=== PATIENT | female | born 1970 | race Caucasian/White ===

== ENCOUNTER → 2017-06-17 14:38 | Outpatient (CLI) | payer MEDICAID, SELFPAY ==
--- NOTE | 2017-06-17 14:41 | MR_ITS ---
MR lumbar spine wo con, MR 3-d myelogram/MRCP HISTORY: Low back pain, bilateral back pain with worsening pain in the last year ORDERING PHYSICIAN: Oscar Angel MD PATIENT AGE: 46 years COMPARISON: None TECHNIQUE: Standard multiplanar multiecho sequences are performed without contrast. 3-D MIP and myelographic images are also rendered and reviewed FINDINGS: The spinal cord ends at the L1-L2 level. There is normal alignment with straightening of the lumbar lordosis which may be seen with patient positioning or muscle spasm. L1-L2: Unremarkable. L2-L3: Mild bulging disc. A Schmorl's node is present along the superior endplate of L3. Mild disc desiccation. L3-L4: Mild disc desiccation. L4-L5: Minimal bulging disc with mild disc desiccation. Focal increased T2 signal involves the right foraminal aspect of the disc posteriorly suggesting an annular tear. No disc herniation. L5-S1: Bulging disc with small broad-based right paracentral disc protrusion abutting the right S1 nerve root anteriorly with right lateral recess narrowing. IMPRESSION: 1. Mild multilevel lumbar spondylosis with disc desiccation and minimal bulging disc. Please see above for detailed description at each level 2. Small broad-based right paracentral disc protrusion at L5-S1 causing mild impingement upon the right S1 nerve root 3. Annular tear of the disc at L4-L5 and the right foraminal region without protrusion or herniation
== END ==
PROVIDERS: Family Provider Emergency Medicine; PCP Emergency Medicine; Visit Provider Emergency Medicine
DX: M54.5 Low back pain (principal)
CPT/HCPCS: 72148; 76376

== ENCOUNTER → 2017-07-25 09:21 | Outpatient (POV) | payer MEDICAID, SELFPAY ==
[2017-07-25 09:29] VITALS: BP 174/97; PULSE 89; RESP 18; O2SAT 96; BMI 28.0
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
== END ==
PROVIDERS: Family Provider Emergency Medicine; PCP Emergency Medicine; Visit Provider Clinical Nurse Specialist Family Health
DX: M54.9 Dorsalgia, unspecified (principal)
CPT/HCPCS: 99202

== ENCOUNTER → 2017-07-26 10:03 | Outpatient (REF) | payer MEDICAID, SELFPAY ==
[2017-07-26 14:57] LABS: Amphetamine/Metha Screen,Urine Negative ng/mL (<1000); Barbiturates Screen,Urine Negative ng/mL (<200); Benzodiazepines Screen,Urine Negative ng/mL (200); Cannabinoid Screen,Urine Negative ng/mL (<50); Cocaine Screen,Urine Negative ng/g (<300); Methadone Screen,Urine Negative ng/mL (<300); Opiate Screen,Urine Negative ng/mL (<300); Phencyclidine Screen,Urine Negative ng/mL (<25)
== END ==
LOC: LAB 10:03
PROVIDERS: Visit Provider Emergency Medicine
DX: Z79.899 Other long term (current) drug therapy (principal)
CPT/HCPCS: 80305

== ENCOUNTER → 2017-08-15 08:38 | Outpatient (CLI) | payer MEDICAID, SELFPAY ==
--- NOTE | 2017-08-15 08:43 | CT_ITS ---
CT mastoid W/O INDICATION: ITS.REASON: chronic mastoiditis ORDERING PHYSICIAN: Shane Rosado MD PATIENT AGE: 46 years COMPARISON: None TECHNIQUE: Axial images are obtained without contrast. Sagittal and coronal reformatted images are reviewed as well. All CT scans at the facility use one or more dose reduction, viz: automated exposure control; ma/kV adjustment per patient size (including targeted exams where dose is matched to indication; i.e. head); or iterative reconstruction technique. FINDINGS: There is moderate opacification of the right mastoid sinus with some minimal aeration centrally and inferiorly. There is also mild opacification of the epitympanic recess medial to the malleolus. No bony erosive changes. No evidence of scutum erosion The middle ear is not opacified.. The paranasal sinuses have an unremarkable appearance. There is severe rightward nasal septal deviation anteriorly with narrowing of the nasal canal. The orbits have an unremarkable appearance. Unremarkable TMJs. No paranasal sinus air-fluid levels or significant mucosal thickening. IMPRESSION: 1. Moderate opacification of the right mastoid sinus without bony erosive change. 2. Mild opacification of the epitympanic recess medially. No evidence of cholesteatoma. 3. Severe rightward nasal septal deviation anteriorly with narrowing of the nasal canal on the right
== END ==
PROVIDERS: Family Provider Emergency Medicine; PCP Emergency Medicine; Visit Provider Otolaryngology
DX: H70.11 Chronic mastoiditis, right ear (principal)
CPT/HCPCS: 70480; 70486

== ENCOUNTER → 2017-08-24 13:58 | Outpatient (REF) | payer MEDICAID, SELFPAY ==
[2017-08-25 18:18] LABS: Amphetamine/Metha Screen,Urine Negative ng/mL (<1000); Barbiturates Screen,Urine Negative ng/mL (<200); Benzodiazepines Screen,Urine Negative ng/mL (200); Cannabinoid Screen,Urine Negative ng/mL (<50); Cocaine Screen,Urine Negative ng/g (<300); Methadone Screen,Urine Negative ng/mL (<300); Opiate Screen,Urine Positive ng/mL (<300); Phencyclidine Screen,Urine Negative ng/mL (<25)
== END ==
LOC: LAB 13:58
PROVIDERS: Visit Provider Emergency Medicine
DX: Z79.899 Other long term (current) drug therapy (principal)
CPT/HCPCS: 80305

== ENCOUNTER → 2017-08-30 10:08 | Outpatient (CLI) | payer MEDICAID, SELFPAY ==
[2017-08-30 10:27] LABS: Basophils % 0.5 % (0.1-2.0); Eosinophils # 0.1 K/mm3 (0.0-0.4); Eosinophils % 1.1 % (0.1-12.0); Hematocrit 47.7 % (37.0-47.0); Hemoglobin 15.5 g/dL (12.2-16.2); Lymphocytes # 3.6 K/mm3 (0.7-4.5); Lymphocytes % 50.5 K/mm3 (10-50); Mean Corpuscular HGB Conc 32.6 g/dL (31.8-35.4); Mean Corpuscular Hemoglobin 31.9 pg (27.0-31.2); Mean Platelet Volume 7.2 fl (7.4-10.4); Monocytes # 0.3 K/mm3 (0.1-1.0); Monocytes % 4.8 % (1.7-9.3); Neutrophils % 43.2 % (37.0-80.0); Platelet Count 228 K/mm3 (142-424); Red Blood Count 4.87 M/mm3 (4.20-5.40); Red Cell Distribution Width 12.6 % (11.5-17.5)
[2017-08-30 10:32] LABS: MANUAL DIFFERENTIAL MANUAL DIFFERENTIAL (MANUAL DIFF)
[2017-08-30 11:44] LABS: Anion Gap 14.6 mEq/L (5-15); Blood Urea Nitrogen 9 mg/dL (7-18); Carbon Dioxide 28 mmol/L (21.0-32.0); Chloride 106 mmol/L (98-107); Creatinine,Serum 0.62 mg/dL (0.55-1.02); Estimated Glomerular Filt Rate 103 ml/min (>60); GFR (African American) 125 ML/MIN (>60); Glucose 82 mg/dL (74-106); Potassium 4.6 mmoL/L (3.5-5.1); Sodium 144 mmol/L (136-145)
[2017-08-30 13:08] LABS: Eosinophils % 1 % (0-3); Lymphocytes % 50 % (10-50); Monocytes % 4 % (2-9); Neutrophils % 45 % (42-76); Platelet Estimate Normal; Total Cells Counted 100
== END ==
PROVIDERS: Visit Provider Otolaryngology
DX: Z01.818 Encounter for other preprocedural examination (principal); J34.2 Deviated nasal septum; H66.91 Otitis media, unspecified, right ear
CPT/HCPCS: 36415; 80048; 85007; 85025; 93005

== ENCOUNTER → 2017-09-23 11:00 | Outpatient (REF) | payer MEDICAID, SELFPAY ==
[2017-09-23 14:20] LABS: Amphetamine/Metha Screen,Urine Negative ng/mL (<1000); Barbiturates Screen,Urine Negative ng/mL (<200); Benzodiazepines Screen,Urine Negative ng/mL (200); Cannabinoid Screen,Urine Negative ng/mL (<50); Cocaine Screen,Urine Negative ng/g (<300); Methadone Screen,Urine Negative ng/mL (<300); Opiate Screen,Urine Positive ng/mL (<300); Phencyclidine Screen,Urine Negative ng/mL (<25)
== END ==
LOC: LAB 11:00
PROVIDERS: Visit Provider Emergency Medicine
DX: Z79.899 Other long term (current) drug therapy (principal)
CPT/HCPCS: 80305

== ENCOUNTER → 2017-10-21 09:25 | Outpatient (CLI) | payer MEDICAID, SELFPAY ==
[2017-10-21 14:05] LABS: Amphetamine/Metha Screen,Urine Negative ng/mL (<1000); Barbiturates Screen,Urine Negative ng/mL (<200); Benzodiazepines Screen,Urine Negative ng/mL (200); Cannabinoid Screen,Urine Negative ng/mL (<50); Cocaine Screen,Urine Negative ng/g (<300); Methadone Screen,Urine Negative ng/mL (<300); Opiate Screen,Urine Positive ng/mL (<300); Phencyclidine Screen,Urine Negative ng/mL (<25)
== END ==
PROVIDERS: Visit Provider Emergency Medicine
DX: Z79.899 Other long term (current) drug therapy (principal)
CPT/HCPCS: 80305

== ENCOUNTER → 2017-11-21 10:03 | Outpatient (REF) | payer MEDICAID, SELFPAY ==
[2017-11-21 14:16] LABS: Amphetamine/Metha Screen,Urine Negative ng/mL (<1000); Barbiturates Screen,Urine Negative ng/mL (<200); Benzodiazepines Screen,Urine Negative ng/mL (<200); Cannabinoid Screen,Urine Negative ng/mL (<50); Cocaine Screen,Urine Negative ng/mL (<300); Methadone Screen,Urine Negative ng/mL (<300); Opiate Screen,Urine Negative ng/mL (<300); Phencyclidine Screen,Urine Negative ng/mL (<25)
== END ==
LOC: LAB 10:03
PROVIDERS: Visit Provider Emergency Medicine
DX: Z79.899 Other long term (current) drug therapy (principal)
CPT/HCPCS: 80305

== ENCOUNTER → 2017-12-14 09:42 | Outpatient (REF) | payer MEDICAID, SELFPAY ==
[2017-12-14 13:59] LABS: Amphetamine/Metha Screen,Urine Negative ng/mL (<1000); Barbiturates Screen,Urine Negative ng/mL (<200); Benzodiazepines Screen,Urine Negative ng/mL (<200); Cannabinoid Screen,Urine Negative ng/mL (<50); Cocaine Screen,Urine Negative ng/mL (<300); Methadone Screen,Urine Negative ng/mL (<300); Opiate Screen,Urine Negative ng/mL (<300); Phencyclidine Screen,Urine Negative ng/mL (<25)
== END ==
LOC: LAB 09:42
PROVIDERS: Visit Provider Emergency Medicine
DX: Z79.899 Other long term (current) drug therapy (principal)
CPT/HCPCS: 80305

== ENCOUNTER → 2018-01-24 09:43 | Outpatient (REF) | payer MEDICAID, SELFPAY ==
[2018-01-24 14:29] LABS: Amphetamine/Metha Screen,Urine Negative ng/mL (<1000); Barbiturates Screen,Urine Negative ng/mL (<200); Benzodiazepines Screen,Urine Negative ng/mL (<200); Cannabinoid Screen,Urine Negative ng/mL (<50); Cocaine Screen,Urine Negative ng/mL (<300); Methadone Screen,Urine Negative ng/mL (<300); Opiate Screen,Urine Negative ng/mL (<300); Phencyclidine Screen,Urine Negative ng/mL (<25)
== END ==
LOC: LAB 09:43
PROVIDERS: Visit Provider Emergency Medicine
DX: Z79.899 Other long term (current) drug therapy (principal)
CPT/HCPCS: 80305

== ENCOUNTER → 2018-02-22 10:02 | Outpatient (REF) | payer MEDICAID, SELFPAY ==
[2018-02-22 13:47] LABS: Amphetamine/Metha Screen,Urine Negative ng/mL (<1000); Barbiturates Screen,Urine Negative ng/mL (<200); Benzodiazepines Screen,Urine Negative ng/mL (<200); Cannabinoid Screen,Urine Negative ng/mL (<50); Cocaine Screen,Urine Negative ng/mL (<300); Methadone Screen,Urine Negative ng/mL (<300); Opiate Screen,Urine Negative ng/mL (<300); Phencyclidine Screen,Urine Negative ng/mL (<25)
== END ==
LOC: LAB 10:02
PROVIDERS: Visit Provider Emergency Medicine
DX: Z79.891 Long term (current) use of opiate analgesic (principal)
CPT/HCPCS: 80305

== ENCOUNTER → 2018-03-27 10:24 | Outpatient (CLI) | payer MEDICAID, SELFPAY ==
--- NOTE | 2018-03-27 10:28 | MM_ITS ---
MM Dig screening mamm BI w/CAD CAD Screening COMPARISON: None, this is baseline INDICATION: There is no personal or family history of breast cancer TECHNIQUE: Standard CC and MLO images were obtained. R2 CAD reviewed. FINDINGS: Minimal scattered fibroglandular densities are seen throughout both breast on a background of fatty breast parenchyma. The findings are bilateral and symmetrical. There is no suspicious lesion and no suspicious microcalcifications. There is a fatty replaced node right axilla. IMPRESSION: Fibrofatty parenchyma no suspicious lesion seen BI-RADS Category: 1 Negative RECOMMENDED FOLLOW-UP: 1YR - 1 YEAR FOLLOW-UP (A letter has been sent to the patient regarding results of the study.)
== END ==
PROVIDERS: PCP Emergency Medicine; Visit Provider Emergency Medicine
DX: Z12.31 Encounter for screening mammogram for malignant neoplasm of breast (principal)
CPT/HCPCS: 77067

== ENCOUNTER → 2018-03-27 13:45 | Outpatient (CLI) | payer MEDICAID, SELFPAY ==
[2018-03-27 15:21] LABS: Amphetamine/Metha Screen,Urine Negative ng/mL (<1000); Barbiturates Screen,Urine Negative ng/mL (<200); Benzodiazepines Screen,Urine Negative ng/mL (<200); Cannabinoid Screen,Urine Negative ng/mL (<50); Cocaine Screen,Urine Negative ng/mL (<300); Methadone Screen,Urine Negative ng/mL (<300); Opiate Screen,Urine Negative ng/mL (<300); Phencyclidine Screen,Urine Negative ng/mL (<25)
== END ==
PROVIDERS: PCP Emergency Medicine; Visit Provider Emergency Medicine
DX: Z79.899 Other long term (current) drug therapy (principal)
CPT/HCPCS: 80305

== ENCOUNTER → 2018-04-03 12:14 | Outpatient (POV) | payer MEDICAID, SELFPAY | PROVIDERS: Visit Provider Specialist | DX: G56.00 Carpal tunnel syndrome, unspecified upper limb (principal) | CPT/HCPCS: 95886; 95910 ==

== ENCOUNTER → 2018-04-25 13:31 | Outpatient (CLI) | payer MEDICAID, SELFPAY ==
[2018-04-25 14:20] LABS: Amphetamine/Metha Screen,Urine Negative ng/mL (<1000); Barbiturates Screen,Urine Negative ng/mL (<200); Benzodiazepines Screen,Urine Negative ng/mL (<200); Cannabinoid Screen,Urine Negative ng/mL (<50); Cocaine Screen,Urine Negative ng/mL (<300); Methadone Screen,Urine Negative ng/mL (<300); Opiate Screen,Urine Negative ng/mL (<300); Phencyclidine Screen,Urine Negative ng/mL (<25)
[2018-05-10 02:13] LABS: Codeine Negative (Cutoff=100); Hydrocodone Positive (.); Hydromorphone Negative (Cutoff=100); Morphine Negative (Cutoff=100)
[2018-05-10 06:20] LABS: Hydrocodone Confirm 142 ng/mL (Cutoff=100); Opiates Positive (.)
== END ==
PROVIDERS: Visit Provider Emergency Medicine
DX: Z79.899 Other long term (current) drug therapy (principal)
CPT/HCPCS: 80305; 80361; G0480

== ENCOUNTER → 2018-04-27 08:43 | Outpatient (CLI) | payer MEDICAID, SELFPAY ==
--- NOTE | 2018-04-27 08:49 | XR_ITS ---
XR wrist RT min 3V HISTORY right wrist pain ITS.REASON: b/l wrist pain ORDERING PHYSICIAN: Guerda De Jesus MD PATIENT AGE: 47 years Comparison: None FINDINGS: No fracture or dislocation. No lytic or blastic change. There is normal mineralization.. The joint spaces are well-preserved. No significant degenerative/arthritic changes. No erosive changes evident.. IMPRESSION: Negative wrist
--- NOTE | 2018-04-27 08:49 | XR_ITS ---
XR wrist LT min 3V HISTORY wrist pain ITS.REASON: Wrist pain ORDERING PHYSICIAN: Guerda De Jesus MD PATIENT AGE: 47 years Comparison: None FINDINGS: No fracture or dislocation. No lytic or blastic change. There is normal mineralization.. The joint spaces are well-preserved. No significant degenerative/arthritic changes. No erosive changes evident.. There are minimal osteoarthritic changes at the first metacarpal carpal joint Calcific density is present at the tip of the ulnar styloid process. This is well-circumscribed and may be related to an old fracture or ununited ossification center IMPRESSION: 1. No acute finding. 2. Minimal osteoarthritis of the first metacarpal carpal joint
== END ==
PROVIDERS: PCP Emergency Medicine; Visit Provider Orthopaedic Surgery
DX: G56.03 Carpal tunnel syndrome, bilateral upper limbs (principal)
CPT/HCPCS: 73110

== ENCOUNTER 2018-04-27 10:00 | Outpatient (RCR) | payer MEDICAID, SELFPAY | END 2018-04-27 10:01 | disposition home or self-care (01) | LOC: OT 10:00 | PROVIDERS: Visit Provider Orthopaedic Surgery | DX: G56.01 Carpal tunnel syndrome, right upper limb | CPT/HCPCS: 97763 ==

== ENCOUNTER → 2018-05-26 13:25 | Outpatient (CLI) | payer MEDICAID, SELFPAY ==
[2018-05-26 16:49] LABS: Amphetamine/Metha Screen,Urine Negative ng/mL (<1000); Barbiturates Screen,Urine Negative ng/mL (<200); Benzodiazepines Screen,Urine Negative ng/mL (<200); Cannabinoid Screen,Urine Negative ng/mL (<50); Cocaine Screen,Urine Negative ng/mL (<300); Methadone Screen,Urine Negative ng/mL (<300); Opiate Screen,Urine Negative ng/mL (<300); Phencyclidine Screen,Urine Negative ng/mL (<25)
[2018-06-03 06:24] LABS: Opiates Negative ng/mL (Cutoff=100)
== END ==
PROVIDERS: Visit Provider Emergency Medicine
DX: Z79.899 Other long term (current) drug therapy (principal)
CPT/HCPCS: 80305; 80361; G0480

== ENCOUNTER → 2018-06-07 11:09 | Outpatient (CLI) | payer MEDICAID, SELFPAY ==
[2018-06-07 12:28] LABS: Urine Pregnancy, HCG Qual. Negative (Negative)
[2018-06-07 13:12] LABS: INR 0.97 (0.9-1.1)
[2018-06-07 13:16] LABS: Anion Gap 17.8 mEq/L (5-15); Blood Urea Nitrogen 11 mg/dL (7-18); Carbon Dioxide 23 mmol/L (21.0-32.0); Chloride 102 mmol/L (98-107); Creatinine,Serum 0.68 mg/dL (0.55-1.02); Estimated Glomerular Filt Rate 92 ml/min (>60); GFR (African American) 112 ML/MIN (>60); Glucose 104 mg/dL (74-106); Potassium 3.8 mmoL/L (3.5-5.1); Sodium 139 mmol/L (136-145)
[2018-06-07 13:29] LABS: Basophils % 0.3 % (0.1-2.0); Eosinophils # 0.1 K/mm3 (0.0-0.4); Eosinophils % 1.2 % (0.1-12.0); Hematocrit 47.2 % (37.0-47.0); Hemoglobin 15.4 g/dL (12.2-16.2); Lymphocytes % 38.6 % (10-50); Mean Corpuscular HGB Conc 32.6 g/dL (31.8-35.4); Mean Platelet Volume 7.8 fl (7.4-10.4); Monocytes # 0.6 K/mm3 (0.1-1.0); Monocytes % 7.2 % (1.7-9.3); Neutrophils # 4.1 K/mm3 (1.8-7.8); Neutrophils % 52.7 % (37.0-80.0); Platelet Count 207 K/mm3 (142-424); Red Blood Count 4.82 M/mm3 (4.20-5.40); Red Cell Distribution Width 13.2 % (11.5-17.5); White Blood Count 7.9 K/mm3 (4.8-10.8)
== END ==
PROVIDERS: Visit Provider Orthopaedic Surgery
DX: Z01.818 Encounter for other preprocedural examination (principal); G56.02 Carpal tunnel syndrome, left upper limb
CPT/HCPCS: 36415; 80048; 81025; 85025; 85610

== ENCOUNTER → 2018-07-21 17:52 | Outpatient (CLI) | payer MEDICAID, SELFPAY ==
[2018-07-21 19:26] LABS: Amphetamine/Metha Screen,Urine Negative ng/mL (<1000); Barbiturates Screen,Urine Positive ng/mL (<200); Benzodiazepines Screen,Urine Negative ng/mL (<200); Cannabinoid Screen,Urine Negative ng/mL (<50); Cocaine Screen,Urine Negative ng/mL (<300); Methadone Screen,Urine Negative ng/mL (<300); Opiate Screen,Urine Negative ng/mL (<300); Phencyclidine Screen,Urine Negative ng/mL (<25)
[2018-07-31 07:59] LABS: Barbiturates Positive (.); Opiates Negative ng/mL (Cutoff=100)
== END ==
PROVIDERS: Visit Provider Emergency Medicine
DX: M54.9 Dorsalgia, unspecified (principal); Z79.891 Long term (current) use of opiate analgesic
CPT/HCPCS: 80305; 80345; 80361; G0480

== ENCOUNTER → 2018-08-01 09:32 | Outpatient (POV) | payer MEDICAID, SELFPAY ==
[2018-08-01 09:34] VITALS: BP 117/74; PULSE 98; RESP 18; O2SAT 98; BMI 29.8
--- NOTE | 2018-08-01 09:58 | P.CONS_ITS ---
[facility] Pain Management SOAP Note Subjective:: Is a pleasant 47-year-old white female who we are treating for low back pain. Patient has an abnormal MRI. She did L5-S1 epidural steroid injection at her last visit however she failed to follow-up post visit. Patient states she got no relief from her injection. He rates her pain a 6 out of 10. Patient and I had a long discussion in regards to moving forward with treatment. Patient has pain with any twisting type of motion. It is mainly in her low back. ROS General: no recent weight change, no fever, no sleep disturbances Respiratory: no cough, no shortness of air, no recurring pulmonary infections Cardiovascular/Peripheral Vascular: No chest pain, No palpitations, no edema, no shortness of breath. Gastrointestinal: no incontinence, normal bowel movements reported Genitourinary: no incontinence Musculoskeletal: Back pain Psychiatric: normal mood/ affect, Neurological: [denies weakness in extremities], [denies balance issues] Objective:: Physical Exam General: Alert and oriented x3, no acute distress, pleasant and cooperative, [on room air] Lungs: Resps E/U, Symmetrical chest expansion, Eyes: PERRL Musculoskeletal: Flexion and extension of lumbar spine somewhat guarded secondary to pain, deep tendon reflexes normal, strength in upper and lower extremities [5/5], slightly antalgic gait noted, positive Kemps test bilateral lumbar spine Neurological: speech clear, channel layer equal, no gross sensory deficits Assessment:: Degenerative disc disease lumbar spine with lumbar spondylosis and low back pain Plan:: We will schedule a medial branch block for the patient at L3-L4 L4-L5 and L5-S1 bilaterally. Patient understands that this is diagnostic in nature. Patient might be a rhizotomy candidate if she is not I believe we should get a new MRI and potentially discuss intrathecal therapies. Dr. Cooper has reviewed this note and agrees with this plan of care. This note was dictated using voice recognition software and may contain errors or omissions
== END ==
PROVIDERS: PCP Emergency Medicine; Visit Provider Clinical Nurse Specialist Family Health
DX: M51.36 Other intervertebral disc degeneration, lumbar region (principal); M47.896 Other spondylosis, lumbar region
CPT/HCPCS: 99213

== ENCOUNTER → 2018-08-14 11:59 | Outpatient (CLI) | payer MEDICAID, SELFPAY ==
--- NOTE | 2018-08-14 11:59 | CA_ITS ---
PROCEDURE: 2-D M-mode and color Doppler study INDICATIONS FOR THE TEST: Chest pain COPD Heart Murmur Tobacco Smoking X Palpitations Fatigue Syncope Edema HypertensionXDiabetes Mellitus Rheumatic Fever SOBXDOEXObesityXHyperlipidemia Family History HD Additional History CAD,GERD PATIENT INFORMATION HEIGHT: 66 WEIGHT:188 GENDER: Female B/P:135/78 2-D/M-MODE INTERPRETATION: 2-D MEASUREMENTS OBSERVED VALUES IN CMS Right Ventricular Dimension (RVDd) 2.2 Interventricular Septum (Thickness)(IVsd) .9 Left Ventricular Internal Dimensions(LVIDd) 4.9 Left Ventricular Posterior Wall (Thickness)(LVPWd) .9 Aortic Root 3.3 Aortic Cusp Separation 1.6 Left Atrial Dimensions (LAD) 3.5 2D 1. Left atrium is normal size, left ventricle is normal size, there is no concentric left ventricular hypertrophy, visually estimated ejection fraction 55% with no regional wall motion abnormality. 2. The right atrium and right ventricle are normal size and contractility. 3. The aortic, mitral and tricuspid valvular grossly normal. 4. The pulmonic valve is poorly visualized. 5. No significant pericardial effusion noted. DOPPLER INTERROGATION: Doppler interrogation of the aortic, mitral and tricuspid valvular presence of mild mitral and tricuspid regurgitation, tricuspid regurgitation jet velocity is inadequate for calculation of the right ventricular systolic pressure, diastolic parameters are within normal range. CONCLUSION: 1. Normal left ventricular size, preserved left ventricular systolic function, visually estimated ejection fraction 55% with no regional wall motion abnormality, diastolic parameters are within normal range. 2. Mild mitral and tricuspid regurgitation 3. No significant pericardial effusion noted.
== END ==
PROVIDERS: PCP Emergency Medicine; Visit Provider Internal Medicine
DX: R07.9 Chest pain, unspecified (principal); R06.02 Shortness of breath; I65.29 Occlusion and stenosis of unspecified carotid artery; I10 Essential (primary) hypertension
CPT/HCPCS: 93017; 93306

== ENCOUNTER → 2018-08-21 14:10 | Outpatient (CLI) | payer MEDICAID, SELFPAY ==
[2018-08-21 18:36] LABS: Amphetamine/Metha Screen,Urine Negative ng/mL (<1000); Barbiturates Screen,Urine Negative ng/mL (<200); Benzodiazepines Screen,Urine Negative ng/mL (<200); Cannabinoid Screen,Urine Negative ng/mL (<50); Cocaine Screen,Urine Negative ng/mL (<300); Methadone Screen,Urine Negative ng/mL (<300); Opiate Screen,Urine Positive ng/mL (<300); Phencyclidine Screen,Urine Negative ng/mL (<25)
== END ==
PROVIDERS: Visit Provider Emergency Medicine
DX: Z79.899 Other long term (current) drug therapy (principal)
CPT/HCPCS: 80305

== ENCOUNTER → 2018-09-04 10:51 | Outpatient (POV) | payer MEDICAID, SELFPAY ==
[2018-09-04 11:09] VITALS: BP 172/95; PULSE 95; RESP 18; O2SAT 98; BMI 30.3
--- NOTE | 2018-09-04 12:24 | HMH.PAINSOAP ---
[facility] Pain Management SOAP Note Subjective:: Patient is a pleasant 47-year-old white female who presents today for follow-up after her injection. Did not get any relief from her injection she states her pain is worse rating her pain a 10 out of 10. Patient and I discussed potential intrathecal and neuro stimulation options. Patient has tried and failed epidural injections along with facet joint injections. She is clearly uncomfortable. Patient states that her activities of daily life have been minimal her functionality has declined significantly. She is not on any anticoagulation therapy. She does not have a recent MRI. She is continuing home stretching program. She is also on anti-inflammatories. ROS General: no recent weight change, no fever, no sleep disturbances Respiratory: no cough, no shortness of air, no recurring pulmonary infections Cardiovascular/Peripheral Vascular: No chest pain, No palpitations, no edema, no shortness of breath. Gastrointestinal: no incontinence, normal bowel movements reported Genitourinary: no incontinence Musculoskeletal: Back pain, leg pain Psychiatric: normal mood/ affect, Neurological: [denies weakness in extremities], [denies balance issues] Objective:: Physical Exam General: Alert and oriented x3, no acute distress, pleasant and cooperative, [on room air] Lungs: Resps E/U, Symmetrical chest expansion, Eyes: PERRL Musculoskeletal: Flexion and extension of lumbar spine somewhat guarded secondary to pain, deep tendon reflexes normal, strength in upper and lower extremities [5/5], [abnormal gait noted] Neurological: speech clear, brake coupler dinkey equal, no gross sensory deficits Assessment:: Degenerative disc disease lumbar spine with lumbar spondylosis facet arthropathy and lumbar radiculopathy Plan:: We will order new lumbar MRI for the patient. We will see the patient after her MRI reassess her symptoms. Patient was given information on both intrathecal therapy and neuro stimulation. Patient is going to call if she wants us to start the process of getting a psychological evaluation prior to her MRI. Dr. Cooper has reviewed this note and agrees with this plan of care. This note was dictated using voice recognition software and may contain errors or omissions
--- NOTE | 2018-09-04 12:27 | P.CONS_ITS ---
[facility] Pain Management SOAP Note Subjective:: Patient is a pleasant 47-year-old white female who presents today for follow-up after her injection. Did not get any relief from her injection she states her pain is worse rating her pain a 10 out of 10. Patient and I discussed potential intrathecal and neuro stimulation options. Patient has tried and failed epidural injections along with facet joint injections. She is clearly uncomfortable. Patient states that her activities of daily life have been minimal her functionality has declined significantly. She is not on any anticoagulation therapy. She does not have a recent MRI. She is continuing home stretching program. She is also on anti-inflammatories. ROS General: no recent weight change, no fever, no sleep disturbances Respiratory: no cough, no shortness of air, no recurring pulmonary infections Cardiovascular/Peripheral Vascular: No chest pain, No palpitations, no edema, no shortness of breath. Gastrointestinal: no incontinence, normal bowel movements reported Genitourinary: no incontinence Musculoskeletal: Back pain, leg pain Psychiatric: normal mood/ affect, Neurological: [denies weakness in extremities], [denies balance issues] Objective:: Physical Exam General: Alert and oriented x3, no acute distress, pleasant and cooperative, [on room air] Lungs: Resps E/U, Symmetrical chest expansion, Eyes: PERRL Musculoskeletal: Flexion and extension of lumbar spine somewhat guarded secondary to pain, deep tendon reflexes normal, strength in upper and lower extremities [5/5], [abnormal gait noted] Neurological: speech clear, senior manufacturing technician equal, no gross sensory deficits Assessment:: Degenerative disc disease lumbar spine with lumbar spondylosis facet arthropathy and lumbar radiculopathy Plan:: We will order new lumbar MRI for the patient. We will see the patient after her MRI reassess her symptoms. Patient was given information on both intrathecal therapy and neuro stimulation. Patient is going to call if she wants us to start the process of getting a psychological evaluation prior to her MRI. Dr. Cooper has reviewed this note and agrees with this plan of care. This note was dictated using voice recognition software and may contain errors or omissions
== END ==
PROVIDERS: PCP Emergency Medicine; Visit Provider Clinical Nurse Specialist Family Health
DX: M51.16 Intervertebral disc disorders with radiculopathy, lumbar region (principal); M54.06 Panniculitis affecting regions of neck and back, lumbar region
CPT/HCPCS: 99212

== ENCOUNTER → 2018-09-11 07:43 | Outpatient (CLI) | payer MEDICAID, SELFPAY ==
--- NOTE | 2018-09-11 07:45 | MR_ITS ---
MR lumbar spine wo con, MR 3-d myelogram/MRCP Ordering Physician: Nikki Deneny APRN Patient Age: 47 years: Female HISTORY: ITS.REASON: BACK PAIN TECHNIQUE: Sagittal STIR, T1, T2, axial T1 and T2. On 1.5T Siemens wide bore MRI. 3-D MR myelogram image set obtained & performed on MRI workstation. Additional sagittal thin section T2 weighted dataset obtained from this latter acquisition as well (---76 CPT) COMPARISON :June 17, 2017 MRI L-spine. 07/11/2016 CT abdomen spine reconstructions also utilized FINDINGS The lumbar vertebral bodies show no acute findings. . There is normal alignmentwith straightening of the lumbar lordosis which may which I believe is baseline and due to positioning this patient since a similar appearance was seen to 2018.. Less likely reflect some muscle spasm. . Overall No significant change since prior study. . 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 Unchanged since at least May [address] abdomen.... Long-standing feature. Also note accentuated Schmorl's node at the superior > inferior endplate of L3. ------ T 11/12 and T12/L1 disc are unremarkable. L1-L2: Unremarkable. L2-L3: Mild bulging disc. Mild disc desiccation. A Schmorl's node is present along the superior as well as endplate of L3. There is also a limbus vertebra type appearance at the anterior superior corner of L3. These are long-standing features unchanged since prior studies L3-L4: Scant disc desiccation. Mild disc bulge at left foramen. Mild left foraminal encroachment. Mild facet arthropathy. L4-L5: Disc bulge most notable at right and left foramen.-With small focus of increased T2 signal again seen at both of these areas of foraminal disc bulging. . This appearance is similar to previous studies but may reflect a small annular fissure/angular tear accounting small focus of increased signal.... Moderate facet hypertrophy bilaterally. Together features yield mild/Moderate foraminal encroachment bilaterally No prominent disc herniation. L5-S1: Disc bulge with with small broad-based right paracentral disc protrusion, similar to previous 2018 study. This again appears to just abutts the right S1 nerve root sleeve anteriorly with mild right lateral recess narrowing. Moderate Ligamentum flavum hypertrophy along with mild facet hypertrophy also noted at this level The above findings both L4/5 and L5-S1 as well as other levels have not changed appreciably since previous 2018 MR exam 3-D MR myelogram image set: only slight tapering of the spinal canal at L4/5. Mainly due to the posterior element hypertrophy along with scant disc bulge towards right left foramen. IMPRESSION:......... 1. . Overall no prominent nor significant appearing changes since 2018 Again seen Mild multilevel lumbar spondylosis,... With mild disc desiccation, minimal posterior disc findings & posterior element hypertrophy. . 2... L4/5: bilateral foraminal disc bulges-with small focus high signal at the posterior margin of both right & left foraminal disc bulge. May reflect a small annular fissure/annular tear is similar to previous study.... The foraminal disc bulging along with moderate facet hypertrophy yields bilateral foraminal encroachment along with slight tapering of the central canal. Borderline canal stenosis L4-L5 3.. L5/S1: Small broad-based right paracentral disc protrusion at L5-S1 mildly impinges upon the right S1 nerve root sleeves as seen on previous study.
== END ==
PROVIDERS: PCP Emergency Medicine; Visit Provider Clinical Nurse Specialist Family Health
DX: M54.5 Low back pain (principal)
CPT/HCPCS: 72148; 76376

== ENCOUNTER → 2018-09-19 10:39 | Outpatient (POV) | payer MEDICAID, SELFPAY ==
[2018-09-19 10:56] VITALS: BP 164/98; PULSE 98; RESP 18; O2SAT 98; BMI 30.3
--- NOTE | 2018-09-19 11:03 | HMH.PAINSOAP ---
[facility] Pain Management SOAP Note Subjective:: Patient is a 47-year-old white female who presents today for follow-up after recent MRI. Patient did not have any significant changes from her 2018 report. Patient has had multiple injections with no relief. She states she will be doing it again. Patient and I discussed potential intrathecal pain pump or neuro stimulation option she is uninterested of having anything implanted in her body. I offered to send her to a neurosurgeon which she stated she would not go to because she does not want to see a PA and not the surgeon himself. Patient rates her pain a 10 out of 10 however she is not in any distress at this time. Patient currently on [place] from her primary care physician. Patient and I discussed that we have come to the end of our treatment options for her. We will refer her back to her primary care physician. ROS General: no recent weight change, no fever, no sleep disturbances Respiratory: no cough, no shortness of air, no recurring pulmonary infections Cardiovascular/Peripheral Vascular: No chest pain, No palpitations, no edema, no shortness of breath. Gastrointestinal: no incontinence, normal bowel movements reported Genitourinary: no incontinence Musculoskeletal: Back pain, leg pain Psychiatric: normal mood/ affect Neurological: [denies weakness in extremities], [denies balance issues] Objective:: Physical Exam General: Alert and oriented x3, no acute distress, pleasant and cooperative, [on room air] Lungs: Resps E/U, Symmetrical chest expansion, Eyes: PERRL Musculoskeletal: Flexion and extension of lumbar spine somewhat guarded secondary to pain, deep tendon reflexes normal, strength in upper and lower extremities [5/5], slightly antalgic gait noted Neurological: speech clear, dairy farmer equal, no gross sensory deficits Assessment:: Degenerative disc disease lumbar spine with lumbar radiculopathy Plan:: We will refer the patient back to her PCP. Patient is uninterested in any referrals to neurosurgery. She is uninterested in any other therapies that we can provide her. Dr. Cooper has reviewed this note and agrees with this plan of care. This note was dictated using voice recognition software and may contain errors or omissions
--- NOTE | 2018-09-19 11:06 | P.CONS_ITS ---
[facility] Pain Management SOAP Note Subjective:: Patient is a 47-year-old white female who presents today for follow-up after recent MRI. Patient did not have any significant changes from her 2018 report. Patient has had multiple injections with no relief. She states she will be doing it again. Patient and I discussed potential intrathecal pain pump or neuro stimulation option she is uninterested of having anything implanted in her body. I offered to send her to a neurosurgeon which she stated she would not go to because she does not want to see a PA and not the surgeon himself. Patient rates her pain a 10 out of 10 however she is not in any distress at this time. Patient currently on [place] from her primary care physician. Patient and I discussed that we have come to the end of our treatment options for her. We will refer her back to her primary care physician. ROS General: no recent weight change, no fever, no sleep disturbances Respiratory: no cough, no shortness of air, no recurring pulmonary infections Cardiovascular/Peripheral Vascular: No chest pain, No palpitations, no edema, no shortness of breath. Gastrointestinal: no incontinence, normal bowel movements reported Genitourinary: no incontinence Musculoskeletal: Back pain, leg pain Psychiatric: normal mood/ affect Neurological: [denies weakness in extremities], [denies balance issues] Objective:: Physical Exam General: Alert and oriented x3, no acute distress, pleasant and cooperative, [on room air] Lungs: Resps E/U, Symmetrical chest expansion, Eyes: PERRL Musculoskeletal: Flexion and extension of lumbar spine somewhat guarded secondary to pain, deep tendon reflexes normal, strength in upper and lower extremities [5/5], slightly antalgic gait noted Neurological: speech clear, structural technician equal, no gross sensory deficits Assessment:: Degenerative disc disease lumbar spine with lumbar radiculopathy Plan:: We will refer the patient back to her PCP. Patient is uninterested in any referrals to neurosurgery. She is uninterested in any other therapies that we can provide her. Dr. Cooper has reviewed this note and agrees with this plan of care. This note was dictated using voice recognition software and may contain errors or omissions
== END ==
PROVIDERS: PCP Emergency Medicine; Visit Provider Clinical Nurse Specialist Family Health
DX: M51.16 Intervertebral disc disorders with radiculopathy, lumbar region (principal)
CPT/HCPCS: 99212

== ENCOUNTER → 2018-10-17 13:49 | Outpatient (CLI) | payer MEDICAID, SELFPAY ==
[2018-10-17 18:52] LABS: Amphetamine/Metha Screen,Urine Negative ng/mL (<1000); Barbiturates Screen,Urine Negative ng/mL (<200); Benzodiazepines Screen,Urine Negative ng/mL (<200); Cannabinoid Screen,Urine Negative ng/mL (<50); Cocaine Screen,Urine Negative ng/mL (<300); Methadone Screen,Urine Negative ng/mL (<300); Opiate Screen,Urine Negative ng/mL (<300); Phencyclidine Screen,Urine Negative ng/mL (<25)
[2018-10-27 06:17] LABS: Opiates Negative ng/mL (Cutoff=100)
== END ==
PROVIDERS: Visit Provider Emergency Medicine
DX: Z79.899 Other long term (current) drug therapy (principal)
CPT/HCPCS: 80305; 80361; G0480

== ENCOUNTER → 2018-11-17 14:27 | Outpatient (CLI) | payer MEDICAID, SELFPAY ==
[2018-11-17 16:38] LABS: Amphetamine/Metha Screen,Urine Negative ng/mL (<1000); Barbiturates Screen,Urine Negative ng/mL (<200); Benzodiazepines Screen,Urine Negative ng/mL (<200); Cannabinoid Screen,Urine Negative ng/mL (<50); Cocaine Screen,Urine Negative ng/mL (<300); Methadone Screen,Urine Negative ng/mL (<300); Opiate Screen,Urine Negative ng/mL (<300); Phencyclidine Screen,Urine Negative ng/mL (<25)
== END ==
PROVIDERS: Visit Provider Emergency Medicine
DX: Z79.899 Other long term (current) drug therapy (principal)
CPT/HCPCS: 80305

== ENCOUNTER 2018-11-20 13:37 | Outpatient (RCR) | payer MEDICAID, SELFPAY | END 2018-11-20 13:45 | disposition home or self-care (01) | LOC: OT 13:37 | PROVIDERS: Visit Provider Orthopaedic Surgery | DX: M79.645 Pain in left finger(s) (principal) | CPT/HCPCS: 97763 ==

== ENCOUNTER → 2019-01-15 14:12 | Outpatient (CLI) | payer MEDICAID, SELFPAY ==
[2019-01-15 15:05] LABS: Amphetamine/Metha Screen,Urine Negative ng/mL (<1000); Barbiturates Screen,Urine Negative ng/mL (<200); Benzodiazepines Screen,Urine Negative ng/mL (<200); Cannabinoid Screen,Urine Negative ng/mL (<50); Cocaine Screen,Urine Negative ng/mL (<300); Methadone Screen,Urine Negative ng/mL (<300); Opiate Screen,Urine Negative ng/mL (<300); Phencyclidine Screen,Urine Negative ng/mL (<25)
[2019-01-22 18:52] LABS: Opiates Negative ng/mL (Cutoff=100)
== END ==
PROVIDERS: Visit Provider Emergency Medicine
DX: Z79.891 Long term (current) use of opiate analgesic (principal); M54.9 Dorsalgia, unspecified
CPT/HCPCS: 80305; 80361; G0480

== ENCOUNTER → 2019-01-16 12:46 | Outpatient (CLI) | payer MEDICAID, SELFPAY ==
--- NOTE | 2019-01-16 12:47 | CT_ITS ---
PROCEDURE: CT CHEST WO CON CLINICAL INDICATION: 6 mth f/u seen on CTA chest Follow-up pulmonary nodule COMPARISON: [facility] CT angio chest from 07/19/2018 TECHNIQUE: Axial images obtained with sagittal and coronal reformats. All CT scans at the facility use one or more dose reduction, viz: automated exposure control, ma/kV adjustment per patient size (including targeted exams where dose is matched to indication, i.e. head), or iterative reconstruction technique. FINDINGS: No mediastinal or hilar mass or adenopathy. Normal heart size. There is mild hyperinflation with attenuation of the peripheral pulmonary vessels suggesting COPD.. No lobar consolidation or collapse. A stable 4 mm nodules present in the right lower lobe laterally image number 50. There is a 3 mm nodule in the left upper lobe anteriorly which is stable. No suspicious pulmonary nodules are evident. There are some scattered fibrotic changes seen left from previously noted nodular opacity in the left upper lobe posteriorly is no longer apparent and may have been due to an area of atelectasis. Upper abdominal images demonstrates a left adrenal nodule measuring -18 Hounsfield units consistent with an adenoma unchanged. IMPRESSION: Stable CT appearance of the chest. No convincing evidence of malignancy. COPD Left adrenal adenoma Dictated by: Jesus Curtis MD 01/16/2019 19:08 Signed by: <Electronically signed by Jesus Curtis MD in [place]> 01/16/2019 19:08
== END ==
PROVIDERS: PCP Emergency Medicine; Visit Provider Emergency Medicine
DX: R91.1 Solitary pulmonary nodule (principal)
CPT/HCPCS: 71250

== ENCOUNTER → 2019-02-19 10:18 | Outpatient (POV) | payer MEDICAID, SELFPAY ==
--- NOTE | 2019-02-19 10:38 | HMH.PAINSOAP ---
[facility] Pain Management SOAP Note Subjective:: Patient is a 48-year-old white female who presents today for follow-up. Patient had recent MRI showing no significant changes from 2018 however she states her pain is a constant 10 out of 10. Patient is in no distress. She is had multiple injections with no relief. Patient does not want to move forward with any additional injections. We discussed intrathecal pain therapy along with neuro stimulation which she states she was uninterested in this as well. Patient currently on [place] hold from her primary care physician. Patient had originally did not want to see a neurosurgeon however she is states that she is here today to have a referral to a neurosurgeon. ROS General: no recent weight change, no fever, no sleep disturbances Respiratory: no cough, no shortness of air, no recurring pulmonary infections Cardiovascular/Peripheral Vascular: No chest pain, No palpitations, no edema, no shortness of breath. Gastrointestinal: no incontinence, normal bowel movements reported Genitourinary: no incontinence Musculoskeletal: Back pain, leg pain Psychiatric: normal mood/ affect Neurological: [denies weakness in extremities], [denies balance issues] Objective:: Physical Exam General: Alert and oriented x3, no acute distress, pleasant and cooperative, [on room air] Lungs: Resps E/U, Symmetrical chest expansion, Eyes: PERRL Musculoskeletal: Flexion and extension of lumbar spine somewhat guarded secondary to pain, deep tendon reflexes normal, strength in upper and lower extremities [5/5], slightly antalgic gait noted Neurological: speech clear, start up specialist equal, no gross sensory deficits Assessment:: Degenerative disc disease lumbar spine with lumbar radiculopathy Plan:: Patient states that her insurance is going to be changing as of tomorrow. She is can call us with that new information so we can send her to a neurosurgeon for surgical consultation. Dr. Cooper has reviewed this note and agrees with this plan of care. This note was dictated using voice recognition software and may contain errors or omissions [facility] History I have reviewed the patient's past medical history: Yes Medical History: Reports:: Coronary Artery Disease, Gastroesophageal Reflux Disease(GERD), Hypertension, Kidney Stones Denies:: Cancer, Diabetes Mellitus Type 1, Diabetes Mellitus Type 2, Internal Pacemaker, MRSA, Seizures *Have you ever received a pneumonia vaccine?: No *Have you received a flu vaccine this season?: Yes Other Medical History: Reports: Other. Denies: Blood Transfusion Reaction Laterality Cases: Other Surgeries: Yes: Sinus Surgery, Skin Cancer Excision, Tubal Ligation, Other. No: Pacemaker Amputation: No Fractures: No - *Social History Smoking Status: Current every day smoker Tobacco Type: cigarettes # Packs/Day (cigarettes): 1 Alcohol Intake: never Alcohol Intake Frequency:: a few times a week Substance Use Type: denies use *Occupational Status:: unemployed Housing: house Household Members: significant other *Travel in the last 8 weeks: None Family Hx:: Adopted
--- NOTE | 2019-02-19 10:42 | P.CONS_ITS ---
[facility] Pain Management SOAP Note Subjective:: Patient is a 48-year-old white female who presents today for follow-up. Patient had recent MRI showing no significant changes from 2018 however she states her pain is a constant 10 out of 10. Patient is in no distress. She is had multiple injections with no relief. Patient does not want to move forward with any additional injections. We discussed intrathecal pain therapy along with neuro stimulation which she states she was uninterested in this as well. Patient currently on [place] hold from her primary care physician. Patient had originally did not want to see a neurosurgeon however she is states that she is here today to have a referral to a neurosurgeon. ROS General: no recent weight change, no fever, no sleep disturbances Respiratory: no cough, no shortness of air, no recurring pulmonary infections Cardiovascular/Peripheral Vascular: No chest pain, No palpitations, no edema, no shortness of breath. Gastrointestinal: no incontinence, normal bowel movements reported Genitourinary: no incontinence Musculoskeletal: Back pain, leg pain Psychiatric: normal mood/ affect Neurological: [denies weakness in extremities], [denies balance issues] Objective:: Physical Exam General: Alert and oriented x3, no acute distress, pleasant and cooperative, [on room air] Lungs: Resps E/U, Symmetrical chest expansion, Eyes: PERRL Musculoskeletal: Flexion and extension of lumbar spine somewhat guarded secondary to pain, deep tendon reflexes normal, strength in upper and lower extremities [5/5], slightly antalgic gait noted Neurological: speech clear, helicopter mechanic equal, no gross sensory deficits Assessment:: Degenerative disc disease lumbar spine with lumbar radiculopathy Plan:: Patient states that her insurance is going to be changing as of tomorrow. She is can call us with that new information so we can send her to a neurosurgeon for surgical consultation. Dr. Cooper has reviewed this note and agrees with this plan of care. This note was dictated using voice recognition software and may contain errors or omissions [facility] History I have reviewed the patient's past medical history: Yes Medical History: Reports:: Coronary Artery Disease, Gastroesophageal Reflux Disease(GERD), Hypertension, Kidney Stones Denies:: Cancer, Diabetes Mellitus Type 1, Diabetes Mellitus Type 2, Internal Pacemaker, MRSA, Seizures *Have you ever received a pneumonia vaccine?: No *Have you received a flu vaccine this season?: Yes Other Medical History: Reports: Other. Denies: Blood Transfusion Reaction Laterality Cases: Other Surgeries: Yes: Sinus Surgery, Skin Cancer Excision, Tubal Ligation, Other. No: Pacemaker Amputation: No Fractures: No - *Social History Smoking Status: Current every day smoker Tobacco Type: cigarettes # Packs/Day (cigarettes): 1 Alcohol Intake: never Alcohol Intake Frequency:: a few times a week Substance Use Type: denies use *Occupational Status:: unemployed Housing: house Household Members: significant other *Travel in the last 8 weeks: None Family Hx:: Adopted
[2019-02-19 10:49] VITALS: BP 134/83; PULSE 81; RESP 18; O2SAT 98; BMI 30.7
== END ==
PROVIDERS: PCP Emergency Medicine; Visit Provider Clinical Nurse Specialist Family Health
DX: M51.16 Intervertebral disc disorders with radiculopathy, lumbar region (principal)
CPT/HCPCS: 99212

== ENCOUNTER → 2019-04-13 12:20 | Outpatient (CLI) | payer MEDICAID, SELFPAY ==
[2019-04-13 12:48] LABS: Basophils % 0.3 % (0.1-2.0); Eosinophils # 0.1 K/mm3 (0.0-0.4); Hematocrit 42.6 % (37.0-47.0); Hemoglobin 14.2 g/dL (12.2-16.2); Lymphocytes # 2.9 K/mm3 (0.7-4.5); Lymphocytes % 30.2 % (10-50); Mean Corpuscular HGB Conc 33.4 g/dL (31.8-35.4); Mean Corpuscular Hemoglobin 32.2 pg (27.0-31.2); Mean Corpuscular Volume 96.3 fl (81-99); Mean Platelet Volume 7.9 fl (7.4-10.4); Monocytes # 0.6 K/mm3 (0.1-1.0); Monocytes % 6.2 % (1.7-9.3); Neutrophils % 62.3 % (37.0-80.0); Platelet Count 185 K/mm3 (142-424); Red Blood Count 4.42 M/mm3 (4.20-5.40); Red Cell Distribution Width 13.7 % (11.5-17.5); White Blood Count 9.6 K/mm3 (4.8-10.8)
[2019-04-13 13:04] LABS: Hemoglobin A1C 5.3 % (0.0-7.0)
[2019-04-13 13:18] LABS: Erythrocyte Sedimentation Rate 16 mm/hr (0-20)
[2019-04-13 14:28] LABS: Alanine Aminotransferase 47 U/L (12-78); Albumin/Globulin Ratio 1.3 (1.1-1.8); Alkaline Phosphatase 64 U/L (46-116); Aspartate Amino Transferase 30 U/L (15-37); Bilirubin,Total 0.6 mg/dL (0.2-1.0); Blood Urea Nitrogen 13 mg/dL (7-18); Calcium 8.7 mg/dL (8.5-10.1); Carbon Dioxide 25 mmol/L (21.0-32.0); Chloride 103 mmol/L (98-107); Creatinine,Serum 0.66 mg/dL (0.55-1.02); Estimated Glomerular Filt Rate 95 ml/min (>60); Free Thyroxine Index 3.2 ug/dL (5.93-13.13); GFR (African American) 115 ML/MIN (>60); Globulin 3.2 gm/dl (1.3-3.2); Glucose 94 mg/dL (74-106); Sodium 137 mmol/L (136-145); Thyroid Stimulating Hormone 2.09 uIU/ml (0.358-3.740); Total Protein,Serum 7.2 gm/dL (6.4-8.2); Triiodothryronine (T3) Uptake 32 % (31-39); Uric Acid 4.2 mg/dL (2.6-7.2)
[2019-04-13 14:29] LABS: C-Reactive Protein < 0.2 mg/dL (0.0-0.9)
[2019-04-16 06:36] LABS: Vitamin D 25 Hydroxy 10.6 ng/mL (30.0-100.0)
[2019-04-16 06:37] LABS: Folate 7.4 ng/mL (>3.0); Vitamin B12 212 pg/mL (232-1245)
[2019-04-16 13:15] LABS: Anti-Centromere B Antibodies <0.2 AI (0.0-0.9); Anti-Jo-1 <0.2 AI (0.0-0.9); Anti-Smith Antibody <0.2 AI (0.0-0.9); Antichromatin Antibodies <0.2 AI (0.0-0.9); Antiscleroderma-70 Antibodies <0.2 AI (0.0-0.9); RNP Antibodies 0.5 AI (0.0-0.9); Sjogren's Anti-SS-A <0.2 AI (0.0-0.9); Sjogren's Anti-SS-B <0.2 AI (0.0-0.9)
[2019-04-17 06:15] LABS: Anti-Cyclic Citrullinated Pept 7 units (0-19); Antinuclear Antibodies, IFA Positive (.)
[2019-04-17 06:16] LABS: Anti-DNA (DS) Ab Qn <1 IU/mL (0-9)
== END ==
PROVIDERS: Visit Provider Orthopaedic Surgery
DX: R52 Pain, unspecified (principal); E11.9 Type 2 diabetes mellitus without complications; M79.642 Pain in left hand; M79.641 Pain in right hand; E55.9 Vitamin D deficiency, unspecified
CPT/HCPCS: 36415; 80053; 82607; 82652; 82746; 83036; 84436; 84443; 84479; 84550; 85025; 85651; 86038; 86140; 86200; 86225; 86235; 86431

== ENCOUNTER → 2019-04-30 12:35 | Outpatient (POV) | payer MEDICAID, SELFPAY | PROVIDERS: Visit Provider Specialist | DX: M79.642 Pain in left hand (principal); M79.641 Pain in right hand | CPT/HCPCS: 95886; 95910 ==

== ENCOUNTER → 2019-05-28 14:57 | Outpatient (CLI) | payer MEDICAID, SELFPAY ==
[2019-05-28 16:52] LABS: Amphetamine/Metha Screen,Urine Negative ng/mL (<1000); Barbiturates Screen,Urine Negative ng/mL (<200); Benzodiazepines Screen,Urine Negative ng/mL (<200); Cannabinoid Screen,Urine Negative ng/mL (<50); Cocaine Screen,Urine Negative ng/mL (<300); Methadone Screen,Urine Negative ng/mL (<300); Opiate Screen,Urine Negative ng/mL (<300); Phencyclidine Screen,Urine Negative ng/mL (<25)
[2019-05-30 11:04] LABS: Vitamin B12 247 pg/mL (232-1245)
== END ==
PROVIDERS: Visit Provider Emergency Medicine
DX: E53.8 Deficiency of other specified B group vitamins (principal); Z79.899 Other long term (current) drug therapy
CPT/HCPCS: 80305; 82607

== ENCOUNTER → 2019-06-25 15:51 | Outpatient (CLI) | payer MEDICAID, SELFPAY ==
[2019-06-28 11:31] LABS: Antiparietal Cell Antibody 29.7 Units (0.0-20.0)
== END ==
PROVIDERS: Visit Provider Specialist
DX: E53.8 Deficiency of other specified B group vitamins (principal); M79.604 Pain in right leg; M79.605 Pain in left leg; R20.0 Anesthesia of skin; R20.2 Paresthesia of skin
CPT/HCPCS: 36415; 83516; 86340

== ENCOUNTER → 2019-07-09 08:53 | Outpatient (POV) | payer MEDICAID, SELFPAY | PROVIDERS: PCP Emergency Medicine; Visit Provider Specialist | DX: M79.605 Pain in left leg (principal); M79.604 Pain in right leg; R20.0 Anesthesia of skin; R20.2 Paresthesia of skin; E53.8 Deficiency of other specified B group vitamins | CPT/HCPCS: 95886; 95909 ==

== ENCOUNTER → 2019-07-16 10:51 | Outpatient (CLI) | payer MEDICAID, SELFPAY ==
--- NOTE | 2019-07-16 10:57 | XR_ITS ---
PROCEDURE: XR CHEST 2V CLINICAL HISTORY: pneumonia COMPARISON: CXR2V XR chest 2V from 07/19/2018 XR CHEST 2V from 07/11/2019 FINDINGS: The cardiomediastinal silhouette and pulmonary vascularity are within normal limits. There remain mild atelectatic changes in the right infrahilar region. The remaining lungs are clear No acute bony abnormalities. IMPRESSION: No change mild atelectatic changes right infrahilar region Dictated by: Jesus Curtis MD 07/16/2019 12:01 Electronically signed by Jesus Curtis MD in [place] 07/16/2019 12:01
== END ==
PROVIDERS: PCP Emergency Medicine; Visit Provider Emergency Medicine
DX: J18.9 Pneumonia, unspecified organism (principal)
CPT/HCPCS: 71046

== ENCOUNTER → 2019-10-08 12:14 | Outpatient (CLI) | payer MEDICAID, SELFPAY ==
--- NOTE | 2019-10-08 12:20 | XR_ITS ---
PROCEDURE: XR FOOT WT BEARING LT 3V CLINICAL INDICATION: pain COMPARISON: No exams were available for comparison FINDINGS: No fracture or dislocation. No lytic or blastic change. There is normal mineralization. The joint spaces are well-preserved. No significant degenerative/arthritic changes. No erosive changes evident. Other findings:None. IMPRESSION: No acute findings. Dictated by: Jesus Curtis MD 10/08/2019 13:02 Electronically signed by Jesus Curtis MD in [place] 10/08/2019 13:02
--- NOTE | 2019-10-08 12:20 | XR_ITS ---
PROCEDURE: XR FOOT WT BEARING RT 3V CLINICAL INDICATION: pain COMPARISON: No exams were available for comparison FINDINGS: No fracture or dislocation. No lytic or blastic change. There is normal mineralization. The joint spaces are well-preserved. No significant degenerative/arthritic changes. No erosive changes evident. Other findings:None. IMPRESSION: No acute findings. Dictated by: Jesus Curtis MD 10/08/2019 13:03 Electronically signed by Jesus Curtis MD in [place] 10/08/2019 13:03
== END ==
PROVIDERS: PCP Emergency Medicine; Visit Provider Podiatrist
DX: M79.672 Pain in left foot (principal); M79.671 Pain in right foot
CPT/HCPCS: 73630

== ENCOUNTER → 2019-11-19 08:39 | Outpatient (CLI) | payer MEDICAID, SELFPAY ==
[2019-11-19 10:43] LABS: Free T4 (Free Thyroxine) 1.01 ng/dl (0.78-2.19)
[2019-11-19 10:58] LABS: Thyroid Stimulating Hormone 3.78 uIU/mL (0.465-4.68)
== END ==
PROVIDERS: Visit Provider Emergency Medicine
DX: R53.83 Other fatigue (principal)
CPT/HCPCS: 36415; 84439; 84443

== ENCOUNTER → 2020-01-24 10:00 | Outpatient (CLI) | payer MEDICAID, SELFPAY ==
--- NOTE | 2020-01-24 10:01 | MR_ITS ---
PROCEDURE: MR FOOT RT WO/W CON CLINICAL INDICATION: Evaluate presence of neuroma., pain, metatarsalgia, capsulitis metatarsophalangeal joint entire foot pain and swelling [id number]. pain when walking. 19ml prohance given. lot:[id number] exp: feb 2022 prior x-ray 69 COMPARISON: CR XR FOOT WT BEARING RT 3V from 10/08/2019 TECHNIQUE: Routine multiplanar multi echo sequences are performed without gadolinium enhancement. FINDINGS: No fracture or dislocation is evident. No bony destructive process. No obvious soft tissue mass at the metatarsal region. There is a small amount of fluid signal intensity at the 2nd and 3rd metatarsal interspace and a small amount fluid along the dorsal aspect of the 2nd 3rd and 4th metatarsophalangeal joints. No bony destructive process. IMPRESSION: 1. No obvious neuroma. 2. Small amount of fluid at the metatarsophalangeal junction at the 2nd 3rd and 4th metatarsals dorsally which may be seen with capsulitis with a small amount of fluid between the heads of the 2nd 3rd and 4th metatarsals which is nonspecific. Dictated by: Jesus Curtis MD 01/29/2020 09:19 Jesus Curtis MD in [place] 01/29/2020 09:19
== END ==
PROVIDERS: PCP Emergency Medicine; Visit Provider Podiatrist
DX: G57.61 Lesion of plantar nerve, right lower limb (principal)
CPT/HCPCS: 73720; A9576

== ENCOUNTER 2020-01-29 11:00 | Outpatient (RCR) | payer MEDICAID, SELFPAY ==
--- NOTE | 2020-01-14 10:22 | HMH.PTOPEV ---
PT Outpatient Evaluation Rehab PT Outpatient Evaluation Start: 01/14/20 10:11 Freq: Status: Active Protocol: Document 01/14/20 10:11 SUGEY (Rec: 01/14/20 10:22 SUGEY [id number]) Electronically Signed By Umair Demarco, PT 01/14/20 10:11 Outpatient Therapy Subjective History Subjective History Pt reports h/o chronic B foot pain and swelling for ~12 months. Pt reports pain and swelling have progressively gotten worse, 'they just hurt all time.' Pt reports recent appt w/ Dr. Orr-'she said it wasn't neuropathy'. Pt currrently reports global bilateral foot pain and swelling. Chief Complaint Pain,Stiff,Swelling, Paresthesia Symptom Type Ache,Throb,Sharp,Dull Symptoms Relieved By Rest/Positioning Symptoms Aggravated By Standing,Walking Prior Functional Limitations Housework,Standing,Walking Current Functional Limitations Housework,Standing,Walking Symptom Description Constant and Continuous Level of pain today (0-10) 10 Pain scale - at its best (0-10) 10 Pain scale - at its worst (0-10) 10 Ankle/Foot Eval Gait Observation General Gait Pattern Observation Antalgic Gait Palpation Tenderness bilateral Ankle/Foot Palpation Overall Comment 3/4 globally-stocking pattern ROM Ankle/Foot Dorsiflexion w/Knee Extended +5 Active Range Motion (degrees) Ankle/Foot Plantar Flexion Active Range 5-40 of Motion (degrees) Ankle/Foot Eversion Active Range of 0-15 Motion (degrees) Ankle/Foot Inversion Active Range of 0-25 Motion (degrees) Great Toe ROM Limitations Pain MMT Ankle Dorsiflexion Strength Grade 4 Good Ankle Plantarflexion Strength Grade 4- Good- Foot Eversion Strength Grade 4 Good Foot Inversion Strength Grade 4 Good Outpatient Therapy Assessment Impairments Problems/Impairmments Palpation Tenderness,Impaired Range of Motion,Impaired Strength,Impaired Gait Pattern ,Impaired Walking,Impaired Standing,Impaired Household Care,Subjective C/O Pain, Impaired Self Care/Self Management Prognosis Rehab Potential Good Clinical Impression Consistent with Diagnosis Yes Short Term Goals Number of Weeks 4 Decreased Palpation Tenderness Yes: 1-2/4 Increase Range of Motion
== END 2020-01-29 11:47 | disposition home or self-care (01) ==
LOC: PT 11:00
PROVIDERS: PCP Emergency Medicine; Visit Provider Podiatrist
DX: M76.71 Peroneal tendinitis, right leg (principal)
CPT/HCPCS: 97110; 97140; 97163

== ENCOUNTER → 2020-03-24 15:17 | Outpatient (CLI) | payer MEDICAID, SELFPAY ==
[2020-03-24 15:51] LABS: Basophils % 0.6 % (0.1-2.0); Eosinophils # 0.1 K/mm3 (0.0-0.4); Eosinophils % 0.8 % (0.1-12.0); Hematocrit 48.8 % (37.0-47.0); Lymphocytes # 2.9 K/mm3 (0.7-4.5); Lymphocytes % 40.6 % (10-50); Mean Corpuscular HGB Conc 34.8 g/dL (31.8-35.4); Mean Corpuscular Hemoglobin 33.7 pg (27.0-31.2); Mean Corpuscular Volume 96.8 fl (81-99); Mean Platelet Volume 9.2 fl (7.4-10.4); Monocytes # 0.3 K/mm3 (0.1-1.0); Monocytes % 4.3 % (1.7-9.3); Neutrophils # 3.8 K/mm3 (1.8-7.8); Neutrophils % 53.8 % (37.0-80.0); Platelet Count 173 K/mm3 (142-424); Red Blood Count 5.04 M/mm3 (4.20-5.40); Red Cell Distribution Width 13.4 % (11.5-17.5)
[2020-03-24 15:55] LABS: Alanine Aminotransferase 62 U/L (12-78); Albumin Level 4.9 g/dl (3.5-5.0); Albumin/Globulin Ratio 1.5 (1.1-1.8); Alkaline Phosphatase 99 U/L (38-126); Anion Gap 14.5 mEq/L (5-15); Aspartate Amino Transferase 91 U/L (14-36); Bilirubin,Total 1.3 mg/dl (0.2-1.3); Blood Urea Nitrogen 7 mg/dl (7-17); Carbon Dioxide 25 mmol/L (22.0-30.0); Chloride 101 mmol/L (98-107); Cholesterol 197 mg/dl (140-200); Estimated Glomerular Filt Rate 106 ml/min (>60); GFR (African American) 128 ML/MIN (>60); Globulin 3.2 g/dL (1.3-3.2); Glucose 101 mg/dl (74-100); Potassium 4.5 mmoL/L (3.5-5.1); Sodium 136 mmol/L (136-145); Total Protein,Serum 8.1 g/dl (6.3-8.2); Triglycerides 70 mg/dl (30-150); VLDL Cholesterol 14 mg/dL (0-40)
[2020-03-24 16:07] LABS: Direct LDL Cholesterol 63.62 mg/dL (100-129)
[2020-03-24 16:12] LABS: Chol/HDL Ratio 1.6 (1-3.5); HDL Cholesterol 123 mg/dl (40-60)
[2020-03-24 16:13] LABS: T4 (Thyroxine) 8.4 ug/dl (5.53-11.0)
[2020-03-24 16:26] LABS: Thyroid Stimulating Hormone 3.16 uIU/mL (0.465-4.68)
== END ==
PROVIDERS: Visit Provider Emergency Medicine
DX: G62.9 Polyneuropathy, unspecified (principal); E55.9 Vitamin D deficiency, unspecified
CPT/HCPCS: 80053; 80061; 84436; 84443; 85025

== ENCOUNTER → 2020-03-28 09:35 | Outpatient (CLI) | payer MEDICAID, SELFPAY ==
--- NOTE | 2020-03-28 09:39 | XR_ITS ---
PROCEDURE: XR KNEE RT 4V CLINICAL INDICATION: RT knee pain COMPARISON: No exams were available for comparison FINDINGS: No fracture or dislocation. No lytic or blastic change. There is normal mineralization. There is slight decrease in the joint space medially without osteophyte formation or osteosclerosis. There is some increased density in the suprapatellar region suggesting small effusion. Other findings:None. IMPRESSION: Mild decrease in the joint space medially which could be due to early osteoarthritic change with suggestion of small knee joint effusion Dictated by: Jesus Curtis MD 03/28/2020 10:31 Jesus Curtis MD in [place] 03/28/2020 10:31
== END ==
PROVIDERS: PCP Emergency Medicine; Visit Provider Orthopaedic Surgery
DX: M25.561 Pain in right knee (principal)
CPT/HCPCS: 73564

== ENCOUNTER → 2020-04-09 09:16 | Outpatient (CLI) | payer MEDICAID, SELFPAY ==
--- NOTE | 2020-04-09 09:16 | MM_ITS ---
PROCEDURE: MM DIG SCREENING MAMM BI W/CAD Digital Breast Tomosynthesis Included CLINICAL INDICATION: Z12.31 There is a history of breast cancer patient's mother. COMPARISON: [facility] MM Dig screening mamm BI w/CAD from 03/27/2018 TECHNIQUE: Standard CC and MLO images and 3D Tomosynthesis was obtained. R2 CAD reviewed. FINDINGS: The breasts are composed primarily of fat with scattered fibroglandular densities throughout each breast and the findings are bilateral and symmetrical. Is lesion in either breast and no suspicious microcalcifications. There are fatty replaced nodes in both axilla. IMPRESSION: Fibrofatty parenchyma with no suspicious lesions seen BI-RAD Category: 1 Negative FOLLOW-UP: 1YR 1 Year Follow-up (A letter has been sent to the patient regarding results of the study.) Dictated by: Dr. Kojo Marin MD 04/12/2020 08:58 Dr. Kojo Marin MD in [place] 04/12/2020 08:58
== END ==
PROVIDERS: PCP Emergency Medicine; Visit Provider Emergency Medicine
DX: Z12.31 Encounter for screening mammogram for malignant neoplasm of breast (principal)
CPT/HCPCS: 77063; 77067

== ENCOUNTER → 2020-07-23 13:58 | Outpatient (CLI) | payer MEDICAID, SELFPAY ==
[2020-07-23 14:47] LABS: Amphetamine/Metha Screen,Urine Negative ng/ml (<1000)
[2020-07-23 14:48] LABS: Barbiturates Screen,Urine Negative ng/ml (<200)
[2020-07-23 14:49] LABS: Benzodiazepines Screen,Urine Negative ng/ml (<200); Cannabinoid Screen,Urine Negative ng/ml (<50)
[2020-07-23 14:50] LABS: Cocaine Screen,Urine Negative ng/ml (<300)
[2020-07-23 14:51] LABS: Methadone Screen,Urine Negative ng/ml (<300); Opiate Screen,Urine Positive ng/ml (<300)
[2020-07-23 14:52] LABS: Phencyclidine Screen,Urine Negative ng/ml (<25)
== END ==
PROVIDERS: Visit Provider Emergency Medicine
DX: Z79.899 Other long term (current) drug therapy (principal)
CPT/HCPCS: 80305

== ENCOUNTER → 2020-09-10 08:31 | Outpatient (CLI) | payer MEDICAID, SELFPAY | PROVIDERS: PCP Emergency Medicine; Visit Provider Orthopaedic Surgery | DX: M25.561 Pain in right knee (principal) ==

== ENCOUNTER → 2020-09-22 14:25 | Outpatient (CLI) | payer MEDICAID, SELFPAY ==
[2020-09-22 15:54] LABS: Amphetamine/Metha Screen,Urine Negative ng/ml (<1000); Barbiturates Screen,Urine Negative ng/ml (<200)
[2020-09-22 15:55] LABS: Benzodiazepines Screen,Urine Negative ng/ml (<200); Cannabinoid Screen,Urine Negative ng/ml (<50)
[2020-09-22 15:56] LABS: Methadone Screen,Urine Negative ng/ml (<300)
[2020-09-22 15:57] LABS: Phencyclidine Screen,Urine Negative ng/ml (<25)
[2020-09-22 16:50] LABS: Cocaine Screen,Urine Negative ng/ml (<300)
[2020-09-22 16:51] LABS: Opiate Screen,Urine Positive ng/ml (<300)
== END ==
PROVIDERS: Visit Provider Emergency Medicine
DX: Z79.899 Other long term (current) drug therapy (principal)
CPT/HCPCS: 80305

== ENCOUNTER → 2020-09-23 10:17 | Outpatient (CLI) | payer MEDICAID, SELFPAY ==
--- NOTE | 2020-09-23 10:18 | MR_ITS ---
PROCEDURE INFORMATION: Exam: MR Right Lower Extremity Joint Without Contrast, Knee Exam date and time: 09/23/2020 10:18 AM Age: 49 years old Clinical indication: Pain; Knee; Right; Additional info: RT knee pain TECHNIQUE: Imaging protocol: MR of the Right lower extremity joint without contrast. Exam focused on the knee. COMPARISON: CR XR KNEE RT 4V 03/28/2020 9:40 AM FINDINGS: Limitations: Motion artifact. Bones and cartilage: No aggressive bone lesions are present. There is no acute fracture or dislocation. There is grade I (out of IV) chondromalacia involving the patellofemoral joint. There is grade II (out of IV) low-grade partial-thickness cartilage loss involving the medial compartment. There is likely minimal low-grade partial-thickness cartilage loss involving the posterior aspect of the lateral femoral condyle. Joint spaces: A mild joint effusion involves the knee. Medial meniscus: A complex tear involves the posterior horn of the medial meniscus. The tear extends into the posterior aspect of the medial meniscus body. Abnormal signal extends to both the superior and inferior meniscal surfaces. The medial meniscus body is partially extruded out of the weightbearing region. Lateral meniscus: The lateral meniscus shows no evidence of tear. Anterior cruciate ligament: The anterior cruciate ligament is intact. Posterior cruciate ligament: The posterior cruciate ligament is intact. Medial capsule and supporting structures: Edema is present around the medial collateral ligament, consistent with a low-grade sprain (grade I injury). Lateral capsule and supporting structures: The lateral collateral ligament complex is intact. Extensor mechanism of knee: The extensor mechanism is intact without significant tendinosis. Muscles: Unremarkable. Soft tissues: A multiloculated fluid collection surrounding the proximal aspect of the medial collateral ligament is favored to represent joint fluid decompressing from the medial recess of the joint (series 13/images 12-15). IMPRESSION: 1. Complex tear of the medial meniscus posterior horn. 2. Sprain of the medial collateral ligament (grade I injury) with an adjacent multiloculated fluid collection favored to represent decompressing joint fluid. 3. 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 4. Grade I chondromalacia patella.
== END ==
PROVIDERS: PCP Emergency Medicine; Visit Provider Orthopaedic Surgery
DX: M25.561 Pain in right knee (principal)
CPT/HCPCS: 73721

== ENCOUNTER → 2020-11-18 13:43 | Outpatient (CLI) | payer MEDICAID, SELFPAY ==
[2020-11-18 14:49] LABS: Amphetamine/Metha Screen,Urine Negative ng/ml (<1000); Barbiturates Screen,Urine Negative ng/ml (<200)
[2020-11-18 14:50] LABS: Benzodiazepines Screen,Urine Negative ng/ml (<200); Cannabinoid Screen,Urine Negative ng/ml (<50)
[2020-11-18 14:51] LABS: Cocaine Screen,Urine Negative ng/ml (<300)
[2020-11-18 14:52] LABS: Methadone Screen,Urine Negative ng/ml (<300)
[2020-11-18 14:53] LABS: Opiate Screen,Urine Positive ng/ml (<300)
[2020-11-18 14:54] LABS: Phencyclidine Screen,Urine Negative ng/ml (<25)
== END ==
PROVIDERS: Visit Provider Emergency Medicine
DX: M47.816 Spondylosis without myelopathy or radiculopathy, lumbar region (principal)
CPT/HCPCS: 80305

== ENCOUNTER → 2020-12-05 08:17 | Outpatient (CLI) | payer MEDICAID, SELFPAY ==
--- NOTE | 2020-12-05 08:24 | XR_ITS ---
PROCEDURE: XR KNEE RT 4V CLINICAL INDICATION: Rt knee pain COMPARISON: CR XR KNEE RT 4V from 03/28/2020 FINDINGS: No fracture or dislocation. No lytic or blastic change. There is normal mineralization. There is slight decrease in the knee joint space medially. No osteophyte formation or osteosclerosis. There may be a small suprapatellar effusion IMPRESSION: No change from 03/28/2020. Slight decrease in the joint space medially which could be seen with early osteoarthritis. Suggestion of small knee joint effusion. Dictated by: Jesus Curtis MD 12/05/2020 09:29 Jesus Curtis MD in [place] 12/05/2020 09:29
--- NOTE | 2020-12-05 08:24 | XR_ITS ---
PROCEDURE: XR HIP RT 2-3V W/PELVIS CLINICAL INDICATION: Rt knee pain Right hip pain COMPARISON: No exams were available for comparison FINDINGS: No fracture or dislocation is evident. No significant degenerative change. No lytic or blastic change. Unremarkable soft tissues. IMPRESSION: No acute findings. Dictated by: Jesus Curtis MD 12/05/2020 09:28 Jesus Curtis MD in [place] 12/05/2020 09:28
== END ==
PROVIDERS: PCP Emergency Medicine; Visit Provider Orthopaedic Surgery
DX: M25.561 Pain in right knee (principal)
CPT/HCPCS: 73502; 73564

== ENCOUNTER → 2020-12-25 10:44 | Outpatient (CLI) | payer MEDICAID, SELFPAY ==
--- NOTE | 2020-12-25 10:45 | MM_ITS ---
PROCEDURE: MM DIG SCREENING MAMM BI W/CAD Digital Breast Tomosynthesis Included CLINICAL INDICATION: screening COMPARISON: [facility] MM Dig screening mamm BI w/CAD from 03/27/2018 MG MM DIG SCREENING MAMM BI W/CAD from 04/09/2020 TECHNIQUE: Standard CC and MLO images and 3D Tomosynthesis was obtained. R2 CAD reviewed. FINDINGS: Fatty to average fibroglandular tissue. No malignant appearing mass or malignant-appearing microcalcification. No architectural distortion or skin thickening. Small nodes are present in the axilla on both sides. Benign-appearing nodular density noted in the deep upper aspect of the right breast overlying the pectoralis muscle with interspersed fat consistent with a lymph node measuring 8 mm. Benign-appearing nodule upper aspect of the left breast at 3 mm unchanged. IMPRESSION: Benign findings. No evidence of malignancy BI-RAD Category: 2 Benign Finding FOLLOW-UP: 1 YR 1 Year Follow-up (A letter has been sent to the patient regarding results of the study.) Dictated by: Jesus Curtis MD 12/31/2020 09:36 Jesus Curtis MD in [place] 12/31/2020 09:36
== END ==
PROVIDERS: PCP Emergency Medicine; Visit Provider Emergency Medicine
DX: Z12.31 Encounter for screening mammogram for malignant neoplasm of breast (principal)
CPT/HCPCS: 77063; 77067

== ENCOUNTER → 2021-01-16 13:44 | Outpatient (CLI) | payer MEDICAID, SELFPAY ==
[2021-01-16 15:04] LABS: Amphetamine/Metha Screen,Urine Negative ng/ml (<1000)
[2021-01-16 15:05] LABS: Barbiturates Screen,Urine Negative ng/ml (<200)
[2021-01-16 15:06] LABS: Benzodiazepines Screen,Urine Negative ng/ml (<200)
[2021-01-16 15:07] LABS: Cannabinoid Screen,Urine Negative ng/ml (<50)
[2021-01-16 15:08] LABS: Cocaine Screen,Urine Negative ng/ml (<300); Methadone Screen,Urine Negative ng/ml (<300)
[2021-01-16 15:09] LABS: Opiate Screen,Urine Positive ng/ml (<300)
[2021-01-16 15:10] LABS: Phencyclidine Screen,Urine Negative ng/ml (<25)
== END ==
PROVIDERS: Visit Provider Nurse Practitioner Family
DX: Z79.899 Other long term (current) drug therapy (principal)
CPT/HCPCS: 80305

== ENCOUNTER → 2021-03-09 13:49 | Outpatient (CLI) | payer MEDICAID, SELFPAY ==
[2021-03-09 13:59] LABS: Basophils # 0.1 K/mm3 (0-0.2); Basophils % 0.5 % (0.1-2.0); Eosinophils # 0.1 K/mm3 (0.0-0.4); Eosinophils % 1.1 % (0.1-12.0); Hematocrit 49.2 % (37.0-47.0); Hemoglobin 16.3 g/dL (12.2-16.2); Lymphocytes # 3.8 K/mm3 (0.7-4.5); Lymphocytes % 36.5 % (10-50); Mean Corpuscular HGB Conc 33.1 g/dL (31.8-35.4); Mean Corpuscular Hemoglobin 33.1 pg (27.0-31.2); Mean Platelet Volume 8.4 fl (7.4-10.4); Monocytes # 0.6 K/mm3 (0.1-1.0); Monocytes % 5.7 % (1.7-9.3); Neutrophils # 5.8 K/mm3 (1.8-7.8); Neutrophils % 56.3 % (37.0-80.0); Platelet Count 239 K/mm3 (142-424); Red Blood Count 4.92 M/mm3 (4.20-5.40); Red Cell Distribution Width 12.4 % (11.5-17.5); White Blood Count 10.3 K/mm3 (4.8-10.8)
[2021-03-09 14:11] LABS: Chloride 100 mmol/L (98-107); Potassium 4.9 mmoL/L (3.5-5.1); Sodium 136 mmol/L (136-145)
[2021-03-09 14:13] LABS: Blood Urea Nitrogen 6 mg/dl (7-17); Estimated Glomerular Filt Rate 130 ml/min (>60); GFR (African American) 157 ML/MIN (>60)
[2021-03-09 14:14] LABS: Alanine Aminotransferase 42 U/L (12-78); Albumin Level 4.8 g/dl (3.5-5.0); Albumin/Globulin Ratio 1.5 (1.1-1.8); Alkaline Phosphatase 79 U/L (38-126); Anion Gap 17.9 mEq/L (5-15); Aspartate Amino Transferase 84 U/L (14-36); Bilirubin,Total 1.2 mg/dl (0.2-1.3); Carbon Dioxide 23 mmol/L (22.0-30.0); Cholesterol 209 mg/dl (140-200); Globulin 3.3 g/dL (1.3-3.2); Glucose 116 mg/dl (74-100); Total Protein,Serum 8.1 g/dl (6.3-8.2); Triglycerides 92 mg/dl (30-150); VLDL Cholesterol 18 mg/dL (0-40)
[2021-03-09 14:15] LABS: Calcium 9.8 mg/dl (8.4-10.2)
[2021-03-09 14:27] LABS: Direct LDL Cholesterol 74.96 mg/dL (100-129)
[2021-03-09 14:28] LABS: 25-OH Vitamin D, Total 55.7 ng/mL (30-100)
[2021-03-09 14:29] LABS: Chol/HDL Ratio 1.8 (1-3.5); HDL Cholesterol 115 mg/dl (40-60)
[2021-03-09 14:33] LABS: T4 (Thyroxine) 7.1 ug/dl (5.53-11.0)
[2021-03-09 14:48] LABS: Amphetamine/Metha Screen,Urine Negative ng/ml (<1000)
[2021-03-09 14:50] LABS: Barbiturates Screen,Urine Negative ng/ml (<200); Benzodiazepines Screen,Urine Negative ng/ml (<200); Thyroid Stimulating Hormone 2.65 uIU/mL (0.465-4.68)
[2021-03-09 14:51] LABS: Cannabinoid Screen,Urine Negative ng/ml (<50)
[2021-03-09 14:52] LABS: Cocaine Screen,Urine Negative ng/ml (<300); Methadone Screen,Urine Negative ng/ml (<300)
[2021-03-09 14:53] LABS: Opiate Screen,Urine Positive ng/ml (<300); Phencyclidine Screen,Urine Negative ng/ml (<25)
== END ==
PROVIDERS: Visit Provider Emergency Medicine
DX: G62.9 Polyneuropathy, unspecified (principal); E66.3 Overweight; Z68.29 Body mass index [BMI] 29.0-29.9, adult
CPT/HCPCS: 80053; 80061; 80305; 82306; 84436; 84443; 85025

== ENCOUNTER 2021-03-24 20:49 | Emergency (ER) | payer MEDICAID, SELFPAY ==
--- NOTE | 2021-03-24 20:46 | ECG_ITS ---
APPROVED REPORT Exam: Resting ECG HR:81 bpm ECG Measurements Heart Rate 81 AXES TN 168 P 65 QRSd 88 QRS 27 QT 404 T 49 QTc 469 Conclusion Normal sinus rhythm Low voltage QRS Borderline ECG Electronically signed by : Bob Robles MD 03/25/2021 21:36:45
[2021-03-24 20:50] VITALS: BP 161/108; PULSE 86; RESP 16; TEMP 37.1; O2SAT 98; BMI 34.4
--- NOTE | 2021-03-24 20:52 | HMH.EDCP ---
ED Disposition Clinical Impression: Atypical chest pain Disposition: Home, Self-Care Condition on Discharge: Good Instructions: DI for Atypical Chest Pain Additional Instructions: Follow-up with your primary care physician in the next 3 to 4 days even if you feel well. You have several risk factors for coronary artery disease. I recommend that you be followed up by a grid trimmer within the next week or 2 to be evaluated for heart disease. Your work-up today did not show any evidence of heart attack. Return to the emergency department immediately if you feel worse in any way. Stop smoking. Take all medications as prescribed. Referrals: Oscar Angel MD [Primary Care Provider] - - Critical Care Critical Care Time: No Attestation: On , the high probability of a clinically significant, sudden or life threatening deterioration of the following system(s) required my full and direct attention, intervention and personal management. The time I documented below is in addition to time spent performing reported procedures but includes the following listed in this critical care notation. Medical Decision Making - Medical Records Medical records reviewed: Yes: I reviewed the patient's medical records. - Gio Inquiry Pt receiving controlled substance: No Vital Signs: 03/24/21 20:50 03/24/21 22:32 Temperature 98.8 F 97.7 F Temperature Source Oral Oral Pulse Rate 73 Pulse Rate [Left] 86 Respiratory Rate 16 16 Blood Pressure 110/67 Blood Pressure [Right Arm] 161/108 H Blood Pressure Mean [Right Arm] 125 02 Sat by Pulse Oximetry 98 98 Oxygen Delivery Method Room Air Room Air - Lab Data Lab results reviewed: Yes: I reviewed the patient's lab results. Lab Results 03/24/21 20:51: Troponin I < 0.01 03/24/21 20:51: WBC 10.3, RBC 4.58, Hgb 15.0, Hct 45.9, MCV 100.3 H, MCH 32.8 H, MCHC 32.7, RDW 12.5, Plt Count 221, MPV 6.9 L, Neut % (Auto) 48.7, Lymph % (Auto) 43.9, [place] % (Auto) 5.4, Eos % (Auto) 1.4, Baso % (Auto) 0.6, Neut # (Auto) 5.0, Lymph # (Auto) 4.5, [place] # (Auto) 0.6, Eos # (Auto) 0.1, Baso # (Auto) 0.1 03/24/21 20:51: Sodium 137, Potassium 3.9, Chloride 103, Carbon Dioxide 20 L, Anion Gap 17.9 H, BUN 6 L, Creatinine 0.50 L, Estimated Creat Clear 216, Estimated GFR 130, Est GFR ( Amer) 157, Glucose 91, Calcium 9.8 03/24/21 23:08: Troponin I < 0.01 Result diagrams: 03/24/21 20:51 03/24/21 20:51 Orders (Tests/Meds): ED MEDICATIONS Discontinued Medications Generic Name Dose Route Start Last Admin Trade Name Freq PRN Reason Stop Dose Admin Aspirin 243 mg 03/24/21 20:55 03/24/21 21:00 Aspirin 81mg Chewable Tablet PO 03/24/21 20:56 243 mg ONCE ONE Administration Ketorolac Tromethamine 30 mg 03/24/21 20:56 03/24/21 21:00 Ketorolac 30mg/Ml Vial IV 03/24/21 20:57 30 mg ONCE ONE Administration ORDERS Category Date Time Status Troponin I Q3H Lab 03/25/21 02:56 Ordered - Radiology Data #1 Image(s): Chest Image Reviewed: Yes I reviewed the patient's radiology results, Yes I reviewed the patient's radiology image, Yes I have reviewed radiologist's interpretation Preliminary Findings: Abnormal (Possible mild bibasilar infiltrates.) - ECG Data Tracing #1 I reviewed this ECG and interpreted as documented below: The patient is EKG was done at 2046. It shows a normal sinus rhythm with a ventricular rate of 81 bpm there are normal intervals there is no evidence of ST elevation or dysrhythmias. The axes are normal. Normal Sinus Rhythm: Yes Tracing #2 I reviewed this ECG and interpreted as documented below: EKG done at 6. Shows a sinus rhythm with a ventricular rate of 73 bpm. There is no evidence of ischemia. There is no evidence of dysrhythmia. The axes are normal. It is unchanged from the prior EKG earlier today. Normal Sinus Rhythm: Yes - FRANCISCO JAVIER Score for Non-Stemi Age of Patient: 50-59 years old Heart Rate: 70-89 bpm Systolic B
[2021-03-24 20:53] VITALS: BMI 35.5
--- NOTE | 2021-03-24 20:58 | XR_ITS ---
PROCEDURE INFORMATION: Exam: XR Chest Exam date and time: 03/24/2021 8:58 PM Age: 50 years old Clinical indication: Chest pressure; Patient HX: Smoker, chest pain for 3 hrs, asthma, copd TECHNIQUE: Imaging protocol: XR of the chest. Views: 1 view. COMPARISON: DX XR CHEST 2V 07/16/2019 11:17 AM FINDINGS: Lungs: Mild bilateral lower lung opacities. Pleural spaces: Unremarkable. No pleural effusion. No pneumothorax. Heart/Mediastinum: Borderline cardiomegaly. Bones/joints: Unremarkable. IMPRESSION: Mild bilateral lower lung opacities. Please correlate for evidence of atypical infection or aspiration.
[2021-03-24 21:05] LABS: Basophils # 0.1 K/mm3 (0-0.2); Basophils % 0.6 % (0.1-2.0); Chloride 103 mmol/L (98-107); Eosinophils # 0.1 K/mm3 (0.0-0.4); Eosinophils % 1.4 % (0.1-12.0); Hematocrit 45.9 % (37.0-47.0); Lymphocytes # 4.5 K/mm3 (0.7-4.5); Lymphocytes % 43.9 % (10-50); Mean Corpuscular HGB Conc 32.7 g/dL (31.8-35.4); Mean Corpuscular Hemoglobin 32.8 pg (27.0-31.2); Mean Corpuscular Volume 100.3 fl (81-99); Mean Platelet Volume 6.9 fl (7.4-10.4); Monocytes # 0.6 K/mm3 (0.1-1.0); Monocytes % 5.4 % (1.7-9.3); Neutrophils % 48.7 % (37.0-80.0); Platelet Count 221 K/mm3 (142-424); Potassium 3.9 mmoL/L (3.5-5.1); Red Blood Count 4.58 M/mm3 (4.20-5.40); Red Cell Distribution Width 12.5 % (11.5-17.5); Sodium 137 mmol/L (136-145); White Blood Count 10.3 K/mm3 (4.8-10.8)
[2021-03-24 21:08] LABS: Anion Gap 17.9 mEq/L (5-15); Blood Urea Nitrogen 6 mg/dl (7-17); Calcium 9.8 mg/dl (8.4-10.2); Carbon Dioxide 20 mmol/L (22.0-30.0); Creatinine Clearance Estimated 216 mL/min (50-200); Estimated Glomerular Filt Rate 130 ml/min (>60); GFR (African American) 157 ML/MIN (>60); Glucose 91 mg/dl (74-100)
[2021-03-24 21:25] LABS: Troponin I < 0.01 ng/ml (0.00-0.034)
[2021-03-24 22:32] VITALS: BP 110/67; PULSE 73; RESP 16; TEMP 36.5; O2SAT 98
--- NOTE | 2021-03-24 23:15 | ECG_ITS ---
APPROVED REPORT Exam: Resting ECG HR:73 bpm ECG Measurements Heart Rate 73 AXES [place] 168 P 61 QRSd 86 QRS 47 QT 424 T 44 QTc 467 Conclusion Normal sinus rhythm Low voltage QRS Borderline ECG Electronically signed by : Bob Robles MD 03/25/2021 21:36:25
[2021-03-24 23:36] LABS: Troponin I < 0.01 ng/ml (0.00-0.034)
[2021-03-24 23:42] VITALS: BP 110/67; PULSE 73; RESP 18; TEMP 37.2; O2SAT 97
== END 2021-03-24 23:45 | disposition home or self-care (01) ==
PROVIDERS: Emergency Provider Emergency Medicine; PCP Emergency Medicine
DX: R07.89 Other chest pain (principal); I10 Essential (primary) hypertension; F17.210 Nicotine dependence, cigarettes, uncomplicated; E11.9 Type 2 diabetes mellitus without complications; I25.10 Atherosclerotic heart disease of native coronary artery without angina pectoris; K21.9 Gastro-esophageal reflux disease without esophagitis; Z79.899 Other long term (current) drug therapy
CPT/HCPCS: 71045; 80048; 84484; 85025; 93005; 96374; 96375; 99282

== ENCOUNTER → 2021-05-06 15:06 | Outpatient (CLI) | payer MEDICAID, SELFPAY ==
[2021-05-06 16:55] LABS: Amphetamine/Metha Screen,Urine Negative ng/ml (<1000)
[2021-05-06 16:56] LABS: Barbiturates Screen,Urine Negative ng/ml (<200)
[2021-05-06 16:58] LABS: Benzodiazepines Screen,Urine Negative ng/ml (<200); Cannabinoid Screen,Urine Negative ng/ml (<50)
[2021-05-06 16:59] LABS: Cocaine Screen,Urine Negative ng/ml (<300); Methadone Screen,Urine Negative ng/ml (<300)
[2021-05-06 17:00] LABS: Opiate Screen,Urine Positive ng/ml (<300)
[2021-05-06 17:01] LABS: Phencyclidine Screen,Urine Negative ng/ml (<25)
== END ==
PROVIDERS: Visit Provider Emergency Medicine
DX: Z79.899 Other long term (current) drug therapy (principal)
CPT/HCPCS: 80305

== ENCOUNTER → 2021-08-12 18:54 | Outpatient (CLI) | payer MEDICAID, SELFPAY ==
[2021-08-12 14:25] LABS: Barbiturates Screen,Urine Negative ng/ml (<200)
[2021-08-12 14:26] LABS: Amphetamine/Metha Screen,Urine Negative ng/ml (<1000)
[2021-08-12 14:27] LABS: Benzodiazepines Screen,Urine Negative ng/ml (<200); Cannabinoid Screen,Urine Negative ng/ml (<50)
[2021-08-12 14:29] LABS: Cocaine Screen,Urine Negative ng/ml (<300)
[2021-08-12 14:30] LABS: Methadone Screen,Urine Negative ng/ml (<300); Opiate Screen,Urine Positive ng/ml (<300)
[2021-08-12 14:31] LABS: Phencyclidine Screen,Urine Negative ng/ml (<25)
== END ==
PROVIDERS: Visit Provider Emergency Medicine
DX: M54.50 Low back pain, unspecified (principal)
CPT/HCPCS: 80305

== ENCOUNTER 2021-09-03 09:53 | Emergency (ER) | payer MEDICAID, SELFPAY ==
[2021-09-03 10:26] VITALS: BP 162/90; PULSE 88; RESP 20; TEMP 36.7; O2SAT 95; BMI 31.6
--- NOTE | 2021-09-03 10:28 | XR_ITS ---
FINAL REPORT CLINICAL HISTORY: sob, CHEST CONGESTION COMPARISON: 03/24/2021 FINDINGS: TWO-VIEW CHEST The heart size is normal. The mediastinum is normal. There is a linear density at the right base which is stable and consistent with scar. The left lung is clear. There is no pneumothorax. IMPRESSION: No acute cardiopulmonary process. Reviewed, Interpreted and Dictated by Hipolito Casillas MD Transcribed by Ashely Olmedo Authenticated by Hipolito Casillas MD on 09/03/2021 11:33:[address] [facility]
--- NOTE | 2021-09-03 10:36 | HMH.EDUTC ---
[facility] [place] Disposition Clinical Impression: Bronchitis Disposition: Home, Self-Care Condition on Discharge: Good Instructions: DI for Acute Bronchitis Additional Instructions: Start antibiotic today. Be sure to complete entire prescription even if feeling better Tylenol and ibuprofen as needed for pain or fever Humidifier/vaporizer/hot steamy shower Follow-up with primary care tomorrow. Follow-up immediately in the ER of the [facility] for new or worsening symptoms or no noticeable improvement over the next 48-72 hours. Stop smoking Start steroids today. Helps with inflammation therefore coughing and wheezing. Follow directions on package. Prescriptions: predniSONE [Prednisone 20mg Tab] 20 mg PO BID #10 tab Transmission Status: Pending to [facility] Azithromycin [Zithromax 250mg tab] 250 mg PO DIRECTED #6 tab Transmission Status: Pending to [facility] Referrals: Oscar Angel MD [Primary Care Provider] - Time of Disposition: 10:46 Medical Decision Making - Gio Inquiry Pt receiving controlled substance: No Vital Signs: 09/03/21 10:26 Temperature 98.1 F Temperature Source Oral Pulse Rate [Left] 88 Respiratory Rate 20 Blood Pressure [Right Arm] 162/90 H Blood Pressure Mean [Right Arm] 114 02 Sat by Pulse Oximetry 95 Orders (Tests/Meds): ORDERS Category Date Time Status Chest XR 2 view (NOT portable) [XR chest 2V] Stat Exams 09/03/21 10:28 Taken Covid-19 Nasal PCR ([facility]) Routine Lab 09/03/21 10:25 Received [facility] [place] HPI - General Chief complaint: [facility]gent [facility] Stated complaint: covid test Time Seen by Provider: 09/03/21 10:36 Mode of Arrival: Ambulatory Source of Information: Patient Limitations: No Limitations Description of Symptoms (Recalled from Triage Doc. by RN): pt c/o SOA, chest congestion and nasal congestion. x1wk HEENT Symptoms (Recalled from RN notes): Yes Resp Symptoms (Recalled from RN notes): Yes Skin Symptoms (Recalled from RN notes): No MS Symptoms (Recalled from RN notes): No Functional Status (Recalled from RN notes): wnl - History of Present Illness Provider Complaint: 50 yr old female c/o SOA, chest congestion, coughing up thick yellow/green sputum and nasal congestion. x1wk - Related Data Home Medications Medication Instructions Recorded Confirmed Fluticasone Propionate 1 spray INTRANASAL ONCE 11/04/17 08/12/21 budesonide-formoterol HFA 80 2 puff INHALATION BID 09/22/20 08/12/21 mcg-4.5 mcg/actuation aerosol inhaler Amlodipine Besylate [Amlodipine See Rx Instructions .ROUTE .COMPLEX 03/24/21 08/12/21 10mg Tab] Diclofenac Sodium [Voltaren 100gm 4 g TOPICAL QID 03/24/21 08/12/21 Topical Gel] bisoproloL fumarate [Bisoprolol See Rx Instructions .ROUTE .COMPLEX 03/24/21 08/12/21 Fumarate] lisinopriL [Lisinopril] See Rx Instructions .ROUTE .COMPLEX 03/24/21 08/12/21 Previous Rx's Medication Instructions Recorded loratadine 10 mg tablet 10 mg PO DAILY #90 tab 11/17/18 polyethylene glycol 3350 17 17 g PO DAILY #510 g 07/03/21 gram/dose oral powder albuterol sulfate 90 mcg/actuation See Rx Instructions .ROUTE 07/16/21 aerosol inhaler .COMPLEX #8.5 g bupropion HCl 75 mg tablet See Rx Instructions .ROUTE 07/16/21 .COMPLEX #60 tab cetirizine 10 mg tablet See Rx Instructions .ROUTE 07/16/21 .COMPLEX #30 tab cholecalciferol (vitamin D3) 25 See Rx Instructions .ROUTE 07/16/21 mcg (1,000 unit) tablet .COMPLEX #30 tab ketotifen fumarate 0.025 % (0.035 See Rx Instructions .ROUTE 07/16/21 %) eye drops .COMPLEX #5 ml metformin 500 mg tablet See Rx Instructions .ROUTE 07/16/21 .COMPLEX #60 tab omeprazole 40 mg capsule,delayed See Rx Instructions .ROUTE 07/16/21 release .COMPLEX #30 cap clonazepam 0.5 mg tablet 0.5 mg PO BID #60 tab 08/12/21 hydrocodone 5 mg-acetaminophen 325 1 tab PO QID PRN #120 tab 08/12/21 mg tablet aspirin 81 mg tablet,delayed See Rx Instructions .ROUTE 08/18/21 release
[2021-09-03 11:01] VITALS: BP 162/90; PULSE 88; RESP 20; TEMP 36.7
== END 2021-09-03 11:01 | disposition home or self-care (01) ==
PROVIDERS: Emergency Provider Nurse Practitioner Family; PCP Emergency Medicine
DX: J20.9 Acute bronchitis, unspecified (principal); Z20.822 Contact with and (suspected) exposure to COVID-19; I10 Essential (primary) hypertension; I25.10 Atherosclerotic heart disease of native coronary artery without angina pectoris; K21.9 Gastro-esophageal reflux disease without esophagitis; N20.2 Calculus of kidney with calculus of ureter; M54.9 Dorsalgia, unspecified; J45.909 Unspecified asthma, uncomplicated; F17.210 Nicotine dependence, cigarettes, uncomplicated; Z79.51 Long term (current) use of inhaled steroids; Z79.82 Long term (current) use of aspirin; Z79.84 Long term (current) use of oral hypoglycemic drugs; Z79.899 Other long term (current) drug therapy
CPT/HCPCS: 71046; 99213; C9803; G0463; U0003; U0005

== ENCOUNTER → 2021-09-16 09:37 | Outpatient (CLI) | payer MEDICAID, SELFPAY ==
--- NOTE | 2021-09-16 09:38 | US_ITS ---
FINAL REPORT CLINICAL HISTORY: pelvic pain FINDINGS: Transvaginal sonographic images of the pelvis were obtained. The uterus measures 5.2 x 3.2 x 2.8 cm. The endometrium measures 6 mm which is abnormally thickened in a postmenopausal patient. No uterine mass is identified. The right ovary measures 2.2 cm in length and left ovary measures 1.9 cm in length. Normal blood flow seen to the ovaries. Small follicles are present. There is no evidence of free fluid. IMPRESSION: Abnormal thickening of the endometrium. Gynecological evaluation is recommended. Reviewed, Interpreted and Dictated by Hipolito Casillas MD Transcribed by Shanita Andrade Authenticated by Hipolito Casillas MD on 09/16/2021 01:06:20 PM [facility]
== END ==
PROVIDERS: PCP Emergency Medicine; Visit Provider Obstetrics & Gynecology
DX: R10.2 Pelvic and perineal pain (principal)
CPT/HCPCS: 76830

== ENCOUNTER → 2021-10-07 18:52 | Outpatient (CLI) | payer MEDICAID, SELFPAY ==
[2021-10-07 13:46] LABS: Amphetamine/Metha Screen,Urine Negative ng/ml (<1000)
[2021-10-07 13:48] LABS: Barbiturates Screen,Urine Negative ng/ml (<200)
[2021-10-07 13:49] LABS: Benzodiazepines Screen,Urine Negative ng/ml (<200)
[2021-10-07 13:50] LABS: Cannabinoid Screen,Urine Negative ng/ml (<50); Methadone Screen,Urine Negative ng/ml (<300)
[2021-10-07 13:51] LABS: Opiate Screen,Urine Positive ng/ml (<300)
[2021-10-07 13:52] LABS: Cocaine Screen,Urine Negative ng/ml (<300); Phencyclidine Screen,Urine Negative ng/ml (<25)
== END ==
PROVIDERS: Visit Provider Emergency Medicine
DX: G89.29 Other chronic pain (principal)
CPT/HCPCS: 80305

== ENCOUNTER → 2021-11-03 09:35 | Outpatient (CLI) | payer MEDICAID, SELFPAY ==
[2021-11-03 10:06] LABS: Basophils # 0.1 K/mm3 (0-0.2); Basophils % 1.2 % (0.1-2.0); Eosinophils # 0.2 K/mm3 (0.0-0.4); Hematocrit 44.8 % (37.0-47.0); Hemoglobin 15.4 g/dL (12.2-16.2); Lymphocytes # 2.8 K/mm3 (0.7-4.5); Mean Corpuscular HGB Conc 34.4 g/dL (31.8-35.4); Mean Corpuscular Hemoglobin 33.3 pg (27.0-31.2); Mean Corpuscular Volume 96.8 fl (81-99); Mean Platelet Volume 7.9 fl (7.4-10.4); Monocytes # 0.6 K/mm3 (0.1-1.0); Monocytes % 6.4 % (1.7-9.3); Neutrophils # 5.3 K/mm3 (1.8-7.8); Neutrophils % 59.4 % (37.0-80.0); Platelet Count 247 K/mm3 (142-424); Red Blood Count 4.63 M/mm3 (4.20-5.40); Red Cell Distribution Width 13.2 % (11.5-17.5); White Blood Count 8.9 K/mm3 (4.8-10.8)
[2021-11-03 10:19] LABS: Chloride 99 mmol/L (98-107); Sodium 135 mmol/L (136-145)
[2021-11-03 10:20] LABS: Potassium 4.8 mmoL/L (3.5-5.1)
[2021-11-03 10:23] LABS: Anion Gap 13.8 mEq/L (5-15); Blood Urea Nitrogen 8 mg/dl (7-17); Calcium 10.1 mg/dl (8.4-10.2); Carbon Dioxide 27 mmol/L (22.0-30.0); Estimated Glomerular Filt Rate 105 ml/min (>60); GFR (African American) 128 ML/MIN (>60); Glucose 114 mg/dl (74-100); HCG Qualitative, Serum Negative (Negative)
== END ==
PROVIDERS: PCP Emergency Medicine; Visit Provider Obstetrics & Gynecology
DX: Z01.818 Encounter for other preprocedural examination (principal); Z20.822 Contact with and (suspected) exposure to COVID-19; R10.2 Pelvic and perineal pain; R93.89 Abnormal findings on diagnostic imaging of other specified body structures
CPT/HCPCS: 36415; 80048; 84703; 85025; C9803; U0003; U0005

== ENCOUNTER → 2021-11-16 09:10 | Outpatient (CLI) | payer MEDICAID, SELFPAY ==
[2021-11-16 09:56] LABS: Basophils # 0.1 K/mm3 (0-0.2); Basophils % 2.1 % (0.1-2.0); Eosinophils # 0.2 K/mm3 (0.0-0.4); Eosinophils % 2.3 % (0.1-12.0); Hematocrit 47.9 % (37.0-47.0); Hemoglobin 15.2 g/dL (12.2-16.2); Lymphocytes # 2.7 K/mm3 (0.7-4.5); Lymphocytes % 39.4 % (10-50); Mean Corpuscular HGB Conc 31.8 g/dL (31.8-35.4); Mean Corpuscular Hemoglobin 32.2 pg (27.0-31.2); Mean Corpuscular Volume 101.3 fl (81-99); Mean Platelet Volume 7.5 fl (7.4-10.4); Monocytes # 0.4 K/mm3 (0.1-1.0); Monocytes % 6.5 % (1.7-9.3); Neutrophils # 3.4 K/mm3 (1.8-7.8); Neutrophils % 49.7 % (37.0-80.0); Platelet Count 244 K/mm3 (142-424); Red Blood Count 4.73 M/mm3 (4.20-5.40); Red Cell Distribution Width 13.1 % (11.5-17.5); White Blood Count 6.9 K/mm3 (4.8-10.8)
[2021-11-16 10:14] LABS: Anion Gap 12.8 mEq/L (5-15); Blood Urea Nitrogen 5 mg/dl (7-17); Calcium 9.5 mg/dl (8.4-10.2); Carbon Dioxide 24 mmol/L (22.0-30.0); Chloride 101 mmol/L (98-107); Estimated Glomerular Filt Rate 130 ml/min (>60); GFR (African American) 157 ML/MIN (>60); Glucose 99 mg/dl (74-100); Potassium 4.8 mmoL/L (3.5-5.1); Sodium 133 mmol/L (136-145)
[2021-11-16 10:16] LABS: Urine Pregnancy, HCG Qual. Negative (Negative)
== END ==
PROVIDERS: PCP Emergency Medicine; Visit Provider Obstetrics & Gynecology
DX: Z01.812 Encounter for preprocedural laboratory examination (principal); Z20.822 Contact with and (suspected) exposure to COVID-19; R10.2 Pelvic and perineal pain
CPT/HCPCS: 36415; 80048; 81025; 85025; C9803; U0003; U0005

== ENCOUNTER 2021-11-18 06:07 | Day surgery (SDC) | payer MEDICAID, SELFPAY ==
[2021-11-03 13:30] VITALS: BMI 31.6
[2021-11-16 11:49] VITALS: BMI 31.6
[2021-11-18] VITALS (9 sets, daily range): BP systolic 102–122; BP diastolic 57–73; PULSE 83–97; RESP 14–18; TEMP 36.3–37.2; O2SAT 97–99
--- NOTE | 2021-11-18 07:38 | P.PN_ITS ---
[facility] Anesthesia Checklist - Patient Identification Patient Identification: Arm Band, Verbal (Name & ) - Structural Data Admitted From: Home Planned Operative Procedure/s: Hysteroscopy D&C Consent for Planned Operative Procedure(s) Verified: Yes Verified Documents: Surgical Consent - NPO Status Verified Time NPO: 00:00 - Chart Verification Results Verified: CBC, BMP, HCG - Additional verifications Anesthesia Reactions: No Hx Blood Transfusions: No Blood Transfusion Reaction: No - Airway Assessment C-Spine Mobility Assessed: Yes TMJ Mobility Assessed: Yes Dentition: Good Dentition - Neurological Assessment Level of Consciousness: Awake, Alert - Anesthesia Plan Anesthesia Risk discussed: Yes ASA Class: III Anesthesia Type: General [facility] History I have reviewed the patient's past medical history: Yes Medical History: Reports:: Asthma, Coronary Artery Disease, Diabetes Mellitus Type 2, Gastroesophageal Reflux Disease(GERD), Hypertension, Kidney Stones Denies:: Cancer, Diabetes Mellitus Type 1, Internal Pacemaker, MRSA, Seizures *Have you ever received a pneumonia vaccine?: No *Have you received a flu vaccine this season?: Yes Other Medical History: Reports: Arthritis, Other. Denies: Blood Transfusion Reaction Anesthesia experience/problems:: none Laterality Cases: Left: Carpal Tunnel Release, Bilateral: Other Other Surgeries: Yes: No Previous Surgery, Sinus Surgery, Skin Cancer Excision, Tubal Ligation, Other. No: Pacemaker Amputation: No Fractures: No - *Social History Last grade of school completed: High school graduate Smoking Status: Current every day smoker Tobacco Type: cigarettes # Packs/Day (cigarettes): 1 Alcohol Intake: current Alcohol Intake Frequency:: holidays/special occasions only Substance Use Type: denies use *Occupational Status:: disabled Housing: half-way Household Members: significant other *Travel in the last 8 weeks: None Family Hx:: Adopted
--- NOTE | 2021-11-18 08:07 | HMH.OPNOTE ---
Date of procedure: 11/18/21 Pre-op Diagnosis:: 1. Abdominal pain 2. Pelvic pain/pressure 3. Thickened endometrium Post-op Diagnosis:: 1. Abdominal pain 2. Pelvic pain/pressure 3. Thickened endometrium Procedure performed:: Hysteroscopy, dilation and Myosure curettage Surgeon:: Mary Morataya DO Loading Machine Adjuster(s):: N/a DOMESTIC HOUSEKEEPER:: Other (Juan Rousseau DOMESTIC HOUSEKEEPER) Anesthesia: GETA Estimated blood loss (mL): 2 Clinical Note:: Patient is a very pleasant 50 yo female, [id number], who presented to [facility] for scheduled surgery. She is scheduled for hysteroscopy, D&C secondary to thickened endometrium and pelvic pressure/pain. She complained of feeling the need to void frequently with little urine output and other times voiding a lot. She is following with Dr. Zaidi. She was started on Myrbetriq. During her annual exam, a bimanual exam was performed and revealed bladder as well as adnexal tenderness. A pelvic ultrasound was performed and demonstrated 6 mm endometrial thickness. She complains of intermittent RLQ cramping. Bowel movements are irregular. Operative findings:: On bimanual exam, uterus was anteverted. No adnexal masses palpated. On hysteroscopic exam, bilateral tubal ostia easily visualized. Normal appearing atrophic endometrium. No masses, polyps or calcifications. Operative note:: Risks, benefits and alternatives were discussed with the patient. Risks include but are not limited to bleeding, infection, uterine perforation and VTE. Patient voiced understanding and agreed to proceed. She was wheeled back to the operating room and placed under general anesthesia without difficulty. She was placed in dorsal lithotomy position and prepped and draped in the normal sterile fashion. Straight catheter was used to drain the bladder. A bimanual exam was performed. A weighted Auvard was placed in the vaginal vault. Single tooth tenaculum was placed on anterior lip of the cervix. Uterus sounded to 7. Sequential Raman dilators were used to dilate the cervical os. Hysteroscope was tested inserted through the cervix without difficulty. Endometrial cavity was evaluated. See findings above. Pictures were taken. Myosure was inserted through the hysteroscope. Myosure curettage was performed per protocol in a 360 degree fashion under direct visualization. A small amount of tissue was obtained. Pictures were taken. Hysteroscope with Myosure was removed. Instruments were removed from the vagina. Tenaculum site was noted to be hemostatic. Patient was awaken from anesthesia without difficulty. She was transported to recovery room in stable condition. Patient will be discharged home when awake and ambulating. She was given postop instructions as well as instructions to follow-up in the office in 2 weeks at which time pathology will be reviewed. Condition: stable Disposition: same day Complications:: None
--- NOTE | 2021-11-18 08:13 | HMH.ANESI ---
[facility] Anesthesia Record Part I Intake, IV Amount: 400 Estimated blood loss (mL): 2 Urine output (mL): 0 Blood Pressure: 122/73 SaO2: 98 Pulse Rate: 95 Respiratory Rate: 14 Temperature: 97.4 F Patient is:: Drowsy
--- NOTE | 2021-11-19 07:22 | HMH.ANESII ---
[facility] Anesthesia Record Part II Discharge Time: 08:40 Destination: Home PACU nurse assessment reviewed?: Yes Patient Condition:: Good Anesthesia Complications:: None Swallowing reflex intact?: Yes Cyanosis?: No Blood Pressure: 102/57 Pulse Rate: 91 Temperature: 97 F Mental Status: Alert & Oriented Pain level:: 0 Nausea and/or vomitting:: None Intake, IV Amount: 0
[2021-11-19 07:23] VITALS: BP 102/57; PULSE 91; TEMP 36.1
== END 2021-11-18 09:11 | disposition home or self-care (01) ==
LOC: OR 06:08
PROVIDERS: PCP Emergency Medicine; Visit Provider Obstetrics & Gynecology
PROC: 0UDB8ZZ Extraction of Endometrium, Via Natural or Artificial Opening Endoscopic (ICD-10-PCS; CPT 58558; principal; 2021-11-18 07:30)
DX: R10.9 Unspecified abdominal pain (principal); R10.2 Pelvic and perineal pain; N85.00 Endometrial hyperplasia, unspecified; E11.9 Type 2 diabetes mellitus without complications; I25.10 Atherosclerotic heart disease of native coronary artery without angina pectoris; I10 Essential (primary) hypertension; Z72.0 Tobacco use; Z79.899 Other long term (current) drug therapy
CPT/HCPCS: 58558; J2405

== ENCOUNTER → 2022-01-01 16:28 | Outpatient (CLI) | payer MEDICAID, SELFPAY ==
[2022-01-01 16:20] LABS: Amphetamine/Metha Screen,Urine Negative ng/ml (<1000); Barbiturates Screen,Urine Negative ng/ml (<200)
[2022-01-01 16:21] LABS: Benzodiazepines Screen,Urine Negative ng/ml (<200)
[2022-01-01 16:22] LABS: Cannabinoid Screen,Urine Negative ng/ml (<50)
[2022-01-01 16:23] LABS: Cocaine Screen,Urine Negative ng/ml (<300); Methadone Screen,Urine Negative ng/ml (<300)
[2022-01-01 16:24] LABS: Opiate Screen,Urine Positive ng/ml (<300)
[2022-01-01 16:25] LABS: Phencyclidine Screen,Urine Negative ng/ml (<25)
== END ==
PROVIDERS: PCP Nurse Practitioner Family; Visit Provider Nurse Practitioner Family
DX: Z79.891 Long term (current) use of opiate analgesic (principal)
CPT/HCPCS: 80305

== ENCOUNTER → 2022-03-09 10:49 | Outpatient (CLI) | payer MEDICAID, SELFPAY ==
--- NOTE | 2022-03-09 10:49 | MM_ITS ---
PROCEDURE INFORMATION: Exam: MG Bilateral Screening 3D Mammography Exam date and time: 03/09/2022 11:02 AM Age: 51 years old Clinical indication: Screening examination. Her mother had breast cancer. TECHNIQUE: Imaging protocol: Bilateral Screening tomosynthesis and 2D mammography including computer-aided detection (CAD) when performed. COMPARISON: 1. MG MM DIG SCREENING MAMM BI W/CAD 12/25/2020 10:48 AM 2. MG MM DIG SCREENING MAMM BI W/CAD 04/09/2020 9:26 AM 3. MG SCBI MM Dig screening mamm BI w/CAD 03/27/2018 11:06 AM FINDINGS: MAMMOGRAPHY: Breast composition: The breasts are almost entirely fatty. Mass: No suspicious mass. Architectural distortion: None. Calcifications: No suspicious calcifications. Asymmetric density: None. Skin thickening: None. Axillary adenopathy: None. IMPRESSION: No mammographic evidence of malignancy. Annual screening is recommended unless otherwise clinically indicated. ASSESSMENT: BI-RADS Category 1: Negative
== END ==
PROVIDERS: PCP Nurse Practitioner Family; Visit Provider Emergency Medicine
DX: Z12.31 Encounter for screening mammogram for malignant neoplasm of breast (principal)
CPT/HCPCS: 77063; 77067

== ENCOUNTER → 2022-03-26 08:24 | Outpatient (CLI) | payer MEDICAID, SELFPAY ==
--- NOTE | 2022-03-26 08:24 | CT_ITS ---
FINAL REPORT TECHNIQUE: Thin section axial CT images of the facial bones and sinuses were obtained without contrast. Coronal reformatted images were also obtained. This study was performed with techniques to keep radiation doses as low as reasonably achievable, (ALARA). Individualized dose reduction techniques using automated exposure control or adjustment of mA and/or kV according to the patient's size were employed. 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 There is opacification of multiple right mastoid air cells consistent with mastoiditis. The right mastoid antrum appears normal. There is no definite soft tissue in the right middle air cavity to suggest a cholesteatoma. The ossicles are suboptimally imaged but the head of the malleus is not seen and may be eroded. The external auditory canal is normal. The internal auditory canal is normal. The inner ear structures are normal. The left mastoid air cells are normal. The ossicles are suboptimally visualized but appear intact. There is no abnormal fluid or soft tissue in the left middle air cavity or mastoid antrum. The external auditory canal is normal. The internal auditory canal is normal. The inner ear structures are normal. Other sinuses appear normal. No fluid levels are identified. No fracture or acute bony abnormality is identified. IMPRESSION: Findings consistent with right mastoiditis. Ossicles are suboptimally visualized but the appearance is worrisome for erosion of the head of the right malleus. No evidence of cholesteatoma. Left mastoid air cells, left middle ear cavity are normal. Reviewed, Interpreted and Dictated by Ochoa Pinto III, MD Transcribed by Shanita Andrade Authenticated and [facility]
== END ==
PROVIDERS: PCP Nurse Practitioner Family; Visit Provider Otolaryngology
DX: H71.91 Unspecified cholesteatoma, right ear (principal); H92.09 Otalgia, unspecified ear
CPT/HCPCS: 70486

== ENCOUNTER → 2022-04-21 14:46 | Outpatient (CLI) | payer MEDICAID, SELFPAY ==
[2022-04-21 15:19] LABS: Amphetamine/Metha Screen,Urine Negative ng/ml (<1000)
[2022-04-21 15:20] LABS: Barbiturates Screen,Urine Negative ng/ml (<200)
[2022-04-21 15:21] LABS: Benzodiazepines Screen,Urine Negative ng/ml (<200); Cannabinoid Screen,Urine Negative ng/ml (<50)
[2022-04-21 15:22] LABS: Cocaine Screen,Urine Negative ng/ml (<300)
[2022-04-21 15:23] LABS: Methadone Screen,Urine Negative ng/ml (<300); Opiate Screen,Urine Positive ng/ml (<300)
[2022-04-21 15:24] LABS: Phencyclidine Screen,Urine Negative ng/ml (<25)
== END ==
PROVIDERS: PCP Nurse Practitioner Family; Visit Provider Nurse Practitioner Family
DX: Z79.899 Other long term (current) drug therapy (principal)
CPT/HCPCS: 80305

== ENCOUNTER → 2022-09-09 16:02 | Outpatient (CLI) | payer MEDICAID, SELFPAY ==
[2022-09-09 14:48] LABS: Amphetamine/Metha Screen,Urine Negative ng/ml (<1000)
[2022-09-09 14:49] LABS: Barbiturates Screen,Urine Negative ng/ml (<200)
[2022-09-09 14:50] LABS: Benzodiazepines Screen,Urine Negative ng/ml (<200); Cannabinoid Screen,Urine Negative ng/ml (<50)
[2022-09-09 14:51] LABS: Cocaine Screen,Urine Negative ng/ml (<300)
[2022-09-09 14:52] LABS: Methadone Screen,Urine Negative ng/ml (<300); Opiate Screen,Urine Positive ng/ml (<300)
[2022-09-09 14:53] LABS: Phencyclidine Screen,Urine Negative ng/ml (<25)
== END ==
PROVIDERS: PCP Nurse Practitioner Family; Visit Provider Nurse Practitioner Family
DX: Z79.899 Other long term (current) drug therapy (principal)
CPT/HCPCS: 80305

== ENCOUNTER → 2022-11-05 13:06 | Outpatient (CLI) | payer MEDICAID, SELFPAY ==
[2022-11-05 12:36] LABS: Alanine Aminotransferase 71 U/L (12-78); Albumin Level 4.6 g/dl (3.5-5.0); Albumin/Globulin Ratio 1.6 (1.1-1.8); Alkaline Phosphatase 117 U/L (38-126); Anion Gap 19.6 mEq/L (5-15); Aspartate Amino Transferase 113 U/L (14-36); Bilirubin,Total 0.6 mg/dl (0.2-1.3); Blood Urea Nitrogen 8 mg/dl (7-17); Carbon Dioxide 22 mmol/L (22.0-30.0); Chloride 101 mmol/L (98-107); Chol/HDL Ratio 2.5 (1-3.5); Cholesterol 193 mg/dl (140-200); Estimated Glomerular Filt Rate 105 ml/min (>60); GFR (African American) 127 ML/MIN (>60); Globulin 2.9 g/dL (1.3-3.2); Glucose 90 mg/dl (74-100); HDL Cholesterol 76 mg/dl (40-60); Potassium 4.6 mmoL/L (3.5-5.1); Sodium 138 mmol/L (136-145); Total Protein,Serum 7.5 g/dl (6.3-8.2); Triglycerides 228 mg/dl (30-150); VLDL Cholesterol 46 mg/dL (0-40)
[2022-11-05 12:47] LABS: Direct LDL Cholesterol 85.36 mg/dL (100-129)
[2022-11-05 12:54] LABS: 25-OH Vitamin D, Total 37.6 ng/mL (30-100)
[2022-11-05 13:06] LABS: Basophils # 0.1 K/mm3 (0-0.2); Basophils % 0.5 % (0.1-2.0); Eosinophils # 0.2 K/mm3 (0.0-0.4); Eosinophils % 1.6 % (0.1-12.0); Hemoglobin 14.9 g/dL (12.2-16.2); Lymphocytes # 3.7 K/mm3 (0.7-4.5); Lymphocytes % 34.5 % (10-50); Mean Corpuscular HGB Conc 31.6 g/dL (31.8-35.4); Mean Corpuscular Hemoglobin 31.2 pg (27.0-31.2); Mean Corpuscular Volume 98.8 fl (81-99); Mean Platelet Volume 8.4 fl (7.4-10.4); Monocytes # 0.5 K/mm3 (0.1-1.0); Monocytes % 5.1 % (1.7-9.3); Neutrophils # 6.2 K/mm3 (1.8-7.8); Neutrophils % 58.2 % (37.0-80.0); Platelet Count 231 K/mm3 (142-424); Red Blood Count 4.76 M/mm3 (4.20-5.40); Red Cell Distribution Width 12.8 % (11.5-17.5); White Blood Count 10.6 K/mm3 (4.8-10.8)
[2022-11-05 13:07] LABS: Thyroid Stimulating Hormone 2.81 uIU/mL (0.465-4.68)
== END ==
PROVIDERS: PCP Nurse Practitioner Family; Visit Provider Nurse Practitioner Family
DX: I10 Essential (primary) hypertension (principal); E66.9 Obesity, unspecified; Z68.32 Body mass index [BMI] 32.0-32.9, adult; Z79.899 Other long term (current) drug therapy
CPT/HCPCS: 80053; 80061; 82306; 84443; 85025

== ENCOUNTER → 2023-02-23 12:00 | Outpatient (CLI) | payer MEDICAID, SELFPAY ==
[2023-02-23 18:59] LABS: Amphetamine/Metha Screen,Urine Positive ng/ml (<1000)
[2023-02-23 19:00] LABS: Barbiturates Screen,Urine Negative ng/ml (<200)
[2023-02-23 19:01] LABS: Cannabinoid Screen,Urine Negative ng/ml (<50); Cocaine Screen,Urine Negative ng/ml (<300)
[2023-02-23 19:02] LABS: Methadone Screen,Urine Negative ng/ml (<300)
[2023-02-23 19:04] LABS: Opiate Screen,Urine Positive ng/ml (<300)
[2023-02-23 19:05] LABS: Phencyclidine Screen,Urine Negative ng/ml (<25)
[2023-02-23 19:08] LABS: Benzodiazepines Screen,Urine Negative ng/ml (<200)
== END ==
PROVIDERS: PCP Nurse Practitioner Family; Visit Provider Nurse Practitioner Family
DX: Z79.899 Other long term (current) drug therapy (principal)
CPT/HCPCS: 80305

== ENCOUNTER → 2023-04-20 16:22 | Outpatient (CLI) | payer MEDICAID, SELFPAY ==
[2023-04-20 12:18] LABS: Barbiturates Screen,Urine Negative ng/ml (<200)
[2023-04-20 12:19] LABS: Benzodiazepines Screen,Urine Negative ng/ml (<200)
[2023-04-20 12:20] LABS: Amphetamine/Metha Screen,Urine Negative ng/ml (<1000); Cannabinoid Screen,Urine Negative ng/ml (<50)
[2023-04-20 12:21] LABS: Cocaine Screen,Urine Negative ng/ml (<300)
[2023-04-20 12:22] LABS: Methadone Screen,Urine Negative ng/ml (<300); Opiate Screen,Urine Positive ng/ml (<300)
[2023-04-20 12:23] LABS: Phencyclidine Screen,Urine Negative ng/ml (<25)
== END ==
PROVIDERS: PCP Nurse Practitioner Family; Visit Provider Nurse Practitioner Family
DX: Z79.899 Other long term (current) drug therapy (principal)
CPT/HCPCS: 80305

== ENCOUNTER 2023-04-28 17:54 | Observation (INO) | payer MEDICAID, SELFPAY ==
[2023-04-28] VITALS (14 sets, daily range): BP systolic 100–144; BP diastolic 63–81; PULSE 74–92; RESP 12–20; TEMP 36.6–43; O2SAT 93–98; BMI 30.8
--- NOTE | 2023-04-28 18:30 | PC.NURSE ---
DR MORALES AT BEDSIDE
--- NOTE | 2023-04-28 18:32 | CT_ITS ---
PROCEDURE INFORMATION: Exam: CT Abdomen And Pelvis With Contrast Exam date and time: 04/28/2023 7:07 PM Age: 52 years old Clinical indication: Localized; Right lower quadrant (rlq); Prior surgery; Surgery date: 6+ months; Surgery type: Tubal ligation; Patient HX: Rlq abdominal pain since early this morning. ; Additional info: Rlq abd pain TECHNIQUE: Imaging protocol: Computed tomography of the abdomen and pelvis with contrast. Radiation optimization: All CT scans at this facility use at least one of these dose optimization techniques: automated exposure control; mA and/or kV adjustment per patient size (includes targeted exams where dose is matched to clinical indication); or iterative reconstruction. Contrast material: ISOVUE; Contrast volume: 75 ml; Contrast route: IV; REPORTING DATA: Count of CT and Cardiac NM exams in prior 12 months: This patient has received 0 known CTs and 0 known cardiac nuclear medicine studies in the 12 months prior to the current study. COMPARISON: 1. ABDPELW/O CT ABD PELVIS W/O CONTRAST 07/11/2016 12:30 PM 2. CR XR HIP RT 2-3V W/PELVIS 12/05/2020 8:26 AM 3. US TRANSVAGINAL 09/16/2021 9:58 AM FINDINGS: Lungs: There are areas of subpleural reticulation throughout the visualized lungs which are nonspecific. Liver: There is possible hepatic steatosis, evaluation is limited secondary to contrast enhancement. Gallbladder and bile ducts: Normal. No calcified stones. No ductal dilation. Pancreas: There is fatty replacement of the pancreas. Spleen: There is a small splenule. Adrenal glands: 2.5 cm left adrenal adenoma. Normal right adrenal gland. Kidneys and ureters: Both kidneys are of normal size and show uniform attenuation. There are no renal masses, cysts, or calculi. The adrenal glands appear normal. Stomach and bowel: There are scattered colonic diverticula without evidence for active diverticulitis. Appendix: The appendix is distended with periappendiceal stranding and wall thickening. Intraperitoneal space: Unremarkable. No free air. No significant fluid collection. Vasculature: There is atherosclerotic disease of the visualized aorta and its major branch vessels. Lymph nodes: There are mildly prominent but nonenlarged and nonspecific retroperitoneal nodes. Urinary bladder: There is moderate distention of the urinary bladder. Reproductive: No significant pathology. Bones/joints: There is diffuse degenerative disease of the visualized osseous structures. Soft tissues: Unremarkable. Other findings: Calcified enterolith noted. IMPRESSION: 1. Findings compatible with acute appendicitis. 2. There is no evidence for perforation or abscess.
--- NOTE | 2023-04-28 18:33 | HMH.EDGENADL ---
Discharge Plan Disposition Patient Disposition: Admitted Prescriptions Prescriptions: No Action amlodipine 10 mg tablet See Rx Instructions .ROUTE .COMPLEX Qty: 90 3RF Dose Instruction: TAKE ONE TABLET BY MOUTH ONCE A DAY FOR BLOOD PRESSURE Rx Instructions: TAKE ONE TABLET BY MOUTH ONCE A DAY FOR BLOOD PRESSURE aspirin 81 mg tablet,delayed release (DR/EC) See Rx Instructions .ROUTE .COMPLEX Qty: 90 3RF Dose Instruction: TAKE ONE TABLET BY MOUTH ONCE A DAY FOR BLOOD THINNER Rx Instructions: TAKE ONE TABLET BY MOUTH ONCE A DAY FOR BLOOD THINNER bisoprolol fumarate 5 mg tablet See Rx Instructions .ROUTE .COMPLEX Qty: 90 3RF Dose Instruction: TAKE ONE TABLET BY MOUTH EVERY MORNING Rx Instructions: TAKE ONE TABLET BY MOUTH EVERY MORNING montelukast 10 mg tablet See Rx Instructions .ROUTE .COMPLEX Qty: 90 3RF Dose Instruction: TAKE ONE TABLET BY MOUTH EVERY EVENING Rx Instructions: TAKE ONE TABLET BY MOUTH EVERY EVENING lisinopril 20 mg tablet See Rx Instructions .ROUTE .COMPLEX Qty: 90 3RF Dose Instruction: TAKE ONE TABLET BY MOUTH ONCE A DAY Rx Instructions: TAKE ONE TABLET BY MOUTH ONCE A DAY omeprazole 40 mg capsule,delayed release(DR/EC) See Rx Instructions .ROUTE .COMPLEX Qty: 90 3RF Dose Instruction: TAKE ONE CAPSULE BY MOUTH ONCE A DAY Rx Instructions: TAKE ONE CAPSULE BY MOUTH ONCE A DAY hydrocodone-acetaminophen 5-325 mg tablet 1 tab PO QID PRN (Reason: pain) Qty: 120 0RF clonazepam 0.5 mg tablet 0.5 mg PO BID Qty: 60 2RF oxybutynin chloride 10 mg tablet extended release 24hr See Rx Instructions .ROUTE .COMPLEX Qty: 90 2RF Dose Instruction: TAKE ONE TABLET BY MOUTH ONCE A DAY Rx Instructions: TAKE ONE TABLET BY MOUTH ONCE A DAY cholecalciferol (vitamin D3) 25 mcg (1,000 unit) tablet See Rx Instructions .Route .COMPLEX Qty: 90 2RF Rx Instructions: TAKE ONE TABLET BY MOUTH ONCE A DAY ketotifen fumarate 0.025 % (0.035 %) drops See Rx Instructions .ROUTE .COMPLEX Qty: 5 3RF Dose Instruction: PLACE 1 DROP IN EACH EYE 2 TIMES A DAY NEEDED Rx Instructions: PLACE 1 DROP IN EACH EYE 2 TIMES A DAY NEEDED cetirizine 10 mg tablet See Rx Instructions .ROUTE .COMPLEX Qty: 30 3RF Dose Instruction: TAKE ONE TABLET BY MOUTH ONCE A DAY Rx Instructions: TAKE ONE TABLET BY MOUTH ONCE A DAY budesonide-formoterol [Breyna] 80-4.5 mcg/actuation HFA aerosol inhaler See Rx Instructions .ROUTE .COMPLEX Qty: 10.3 0RF Dose Instruction: INHALE 2 PUFFS BY MOUTH 2 TIMES A DAY FOR COPD Rx Instructions: INHALE 2 PUFFS BY MOUTH 2 TIMES A DAY FOR COPD phentermine [Adipex-P] 37.5 mg tablet 37.5 mg PO DAILY Qty: 30 0RF Rx Instructions: must administer 30 minutes before or 1-2 hours after breakfast fluticasone propionate 50 mcg/actuation spray,suspension See Rx Instructions .ROUTE .COMPLEX Qty: 16 0RF Dose Instruction: USE 1 SPRAY IN EACH NOSTRIL ONCE A DAY FOR ALLERGY SYMPTOMS Rx Instructions: USE 1 SPRAY IN EACH NOSTRIL ONCE A DAY FOR ALLERGY SYMPTOMS cyclobenzaprine 10 mg tablet See Rx Instructions .ROUTE .COMPLEX Qty: 60 1RF Dose Instruction: TAKE ONE TABLET BY MOUTH 3 TIMES A DAY NEEDED FOR MUSCLE SPASMS Rx Instructions: TAKE ONE TABLET BY MOUTH 3 TIMES A DAY NEEDED FOR MUSCLE SPASMS Referrals Follow up/Referrals: Armani Moser APRN [Primary Care Provider] - See instructions Clinical Impressions Clinical Impression: Appendicitis Instructions Patient Instructions: DI for Acute Abdominal Pain Discharge ED Provider: Marshal Pérez General Adult HPI General Chief complaint: Abdominal Pain Stated complaint: pain in rt pelvis&abd nausia Time Seen by Provider: 04/28/23 18:29 Mode of Arrival: Ambulatory Source of Information: Patient Limitations: No Limitations Descr
[2023-04-28 18:41] LABS: Chloride 101 mmol/L (98-107); Sodium 132 mmol/L (136-145)
[2023-04-28 18:42] LABS: Basophils % 0.3 % (0.1-2.0); Eosinophils % 0.2 % (0.1-12.0); Lymphocytes # 1.8 K/mm3 (0.7-4.5); Lymphocytes % 14.3 % (10-50); Mean Corpuscular HGB Conc 34.9 g/dL (31.8-35.4); Mean Corpuscular Hemoglobin 32.5 pg (27.0-31.2); Mean Corpuscular Volume 92.9 fl (81-99); Mean Platelet Volume 8.1 fl (7.4-10.4); Monocytes # 0.5 K/mm3 (0.1-1.0); Neutrophils # 10.2 K/mm3 (1.8-7.8); Neutrophils % 81.2 % (37.0-80.0); Platelet Count 183 K/mm3 (142-424); Red Blood Count 4.63 M/mm3 (4.20-5.40); White Blood Count 12.5 K/mm3 (4.8-10.8)
[2023-04-28 18:43] LABS: Alanine Aminotransferase 71 U/L (12-78); Aspartate Amino Transferase 83 U/L (14-36); Blood Urea Nitrogen 12 mg/dl (7-17); Creatinine Clearance Estimated 178 mL/min (50-200); Estimated Glomerular Filt Rate 129 ml/min (>60); GFR (African American) 156 ML/MIN (>60)
[2023-04-28 18:44] LABS: Albumin Level 4.6 g/dl (3.5-5.0); Albumin/Globulin Ratio 1.4 (1.1-1.8); Alkaline Phosphatase 83 U/L (38-126); Bilirubin,Total 1.4 mg/dl (0.2-1.3); Carbon Dioxide 23 mmol/L (22.0-30.0); Globulin 3.4 g/dL (1.3-3.2); Glucose 129 mg/dl (74-100)
--- NOTE | 2023-04-28 19:32 | PC.NURSE ---
pageadelina Holm at this time.
--- NOTE | 2023-04-28 19:33 | PC.NURSE ---
on phone with at this time.
--- NOTE | 2023-04-28 19:47 | PC.NURSE ---
Surgery team called.
--- NOTE | 2023-04-28 20:18 | EXP.GEN.HP ---
HPI HPI HPI: Patient is a 52-year-old female who states that she was in her usual state of health until earlier this morning on 04/28/2023 at which time she developed lower abdominal pain localized to the right lower quadrant. It became progressively more severe. She presented to the emergency department. She has had some associated nausea. Evaluation in the emergency department revealed mild leukocytosis of 12,500. Assessment in the emergency department was concerning for appendicitis. She had CT scan which revealed findings of uncomplicated appendicitis. Surgical consultation was obtained. [facility] Disclaimer: The information contained in this section may have been updated after the patient was seen, as this information can be updated by other users. Medical History Bronchitis Carotid artery stenosis Cholesteatoma of right ear Deviated nasal septum Ear ache Ear pain Lumbar facet joint syndrome Neuropathy Perforation of right tympanic membrane SOB (shortness of breath) Social History Smoking Status: Current every day smoker tobacco type: cigarettes packs per day: 1 alcohol intake: current counseling provided: none substance use type: denies use current occupational status: disabled Travel in the last 8 weeks: None household members: significant other housing: [facility] current occupational exposures/hazards: No caffeine: Yes Review of Systems Review of Systems Review of systems:: pertinent systems reviewed and negative unless documented below Meds Home Medications and Allergies Home Medications Medication Instructions Recorded Confirmed Type ketotifen fumarate 0.025 % (0.035 See Rx Instructions .Route 12/14/21 04/20/23 Rx %) eye drops .COMPLEX #5 mL amlodipine 10 mg tablet See Rx Instructions .Route 07/16/22 04/20/23 Rx .COMPLEX #90 tabs aspirin 81 mg tablet,delayed See Rx Instructions .Route 07/16/22 04/20/23 Rx release .COMPLEX #90 tabs bisoprolol fumarate 5 mg tablet See Rx Instructions .Route 07/16/22 04/20/23 Rx .COMPLEX #90 tabs lisinopril 20 mg tablet See Rx Instructions .Route 07/16/22 04/20/23 Rx .COMPLEX #90 tabs montelukast 10 mg tablet See Rx Instructions .Route 07/16/22 04/20/23 Rx .COMPLEX #90 tabs omeprazole 40 mg capsule,delayed See Rx Instructions .Route 07/16/22 04/20/23 Rx release .COMPLEX #90 caps cetirizine 10 mg tablet See Rx Instructions .Route 12/02/22 04/20/23 Rx .COMPLEX #30 tabs cholecalciferol (vitamin D3) 25 See Rx Instructions .Route 12/31/22 04/20/23 Rx mcg (1,000 unit) tablet .COMPLEX Supplement #90 tabs budesonide-formoterol HFA 80 See Rx Instructions .Route 03/14/23 04/20/23 Rx mcg-4.5 mcg/actuation aerosol .COMPLEX #10.3 grams inhaler (Breyna) phentermine 37.5 mg tablet 37.5 mg PO DAILY #30 tabs 03/29/23 04/20/23 Rx (Adipex-P) fluticasone propionate 50 See Rx Instructions .Route 04/07/23 04/20/23 Rx mcg/actuation nasal .COMPLEX #16 grams spray,suspension clonazepam 0.5 mg tablet 0.5 mg PO BID #60 tabs 04/20/23 04/20/23 Rx cyclobenzaprine 10 mg tablet See Rx Instructions .Route 04/20/23 Rx .COMPLEX #60 tabs hydrocodone 5 mg-acetaminophen 325 1 tab PO QID PRN pain #120 tabs 04/20/23 04/20/23 Rx mg tablet oxybutynin chloride 10 mg See Rx Instructions .Route 04/20/23 04/20/23 Rx tablet,extended release 24 hr .COMPLEX #90 tabs New Prescriptions to Start Prescriptions: Allergies Allergy/AdvReac Type Severity Reaction Status Date / Time No Known Drug Allergies Allergy Unknown NONE Verified 04/20/23 09:36 Exam Data for Last 24 hours Vital signs and Labs for Last 24 Hours: Temp Pulse Resp BP Pulse Ox O2 Del Method 97.9 F 84 20 131/79 98 Room Air 04/28/23 17:56 04/28/23 19:30 04/28/23 17:56 04/28/23 19:30 04/28/23 19:30 04/28/23 17:56 Laboratory Results - last 24
--- NOTE | 2023-04-28 22:02 | EXP.HP ---
History of Present Illness *Admission Date: 04/28/23 *Reason for visit:: abd pain *History of present illness: Patient is a 52-year-old female smoker, HTN, obese who began this morning worsened abdominal pain in the right lower quadrant. She has no history of appendectomy or ovarian or uterine abnormalities in the past. Did have a little bit of dysuria a few days ago but denies other symptoms including diarrhea frequency urgency of urination fevers chills etc. Last meal was 10 AM. Obtained form Surgery: started with lower abdominal pain localized to the right lower quadrant. It became progressively more severe. She presented to the emergency department. She has had some associated nausea. Evaluation in the emergency department revealed mild leukocytosis of 12,500. Assessment in the emergency department was concerning for appendicitis. She had CT scan which revealed findings of uncomplicated appendicitis. Surgical consultation was obtained. emergent taken to OR patient seen post procedure. internal medicine asked for services. current stable. pain improved. complaining of some discomfort and nauseas, as well as eyes irritation from allergies. [facility] Disclaimer: The information contained in this section may have been updated after the patient was seen, as this information can be updated by other users. Medical History (Updated 04/29/23 @ 01:56 by Thom Huerta APRN) Bronchitis Carotid artery stenosis Cholesteatoma of right ear Deviated nasal septum Ear ache Ear pain Lumbar facet joint syndrome Neuropathy Perforation of right tympanic membrane SOB (shortness of breath) Social History (Updated 04/28/23 @ 23:43 by Betty Bautista RN) Smoking Status: Current every day smoker tobacco type: cigarettes packs per day: 1 alcohol intake: current counseling provided: none substance use type: denies use current occupational status: disabled Travel in the last 8 weeks: None household members: significant other housing: intermediate current occupational exposures/hazards: No caffeine: Yes Review of Systems Review of Systems Review of systems:: pertinent systems reviewed and negative unless documented below Meds Home Medications and Allergies Home Medications Medication Instructions Recorded Confirmed Type amoxicillin 875 mg-potassium 1 tab PO BID #6 tabs 04/29/23 Rx clavulanate 125 mg tablet aspirin 81 mg tablet,delayed 81 mg PO DAILY Heart Health 04/29/23 04/29/23 History release bisoprolol fumarate 5 mg tablet 5 mg PO DAILY High Blood Pressure 04/29/23 04/29/23 History budesonide-formoterol HFA 80 2 puff inhalation BID Copd 04/29/23 04/29/23 History mcg-4.5 mcg/actuation aerosol inhaler (Breyna) cetirizine 10 mg tablet 10 mg PO DAILY Allergy Symptoms 04/29/23 04/29/23 History cholecalciferol (vitamin D3) 25 25 mcg PO DAILY Supplement 04/29/23 04/29/23 History mcg (1,000 unit) tablet clonazepam 0.5 mg tablet 0.5 mg PO BID Anxiety 04/29/23 04/29/23 History cyclobenzaprine 10 mg tablet 10 mg PO TIDP PRN Muscle Spasm 04/29/23 04/29/23 History fluticasone propionate 50 1 spray intranasal DAILY Allergy 04/29/23 04/29/23 History mcg/actuation nasal Symptoms spray,suspension hydrocodone 5 mg-acetaminophen 325 1 - 2 tab PO Q6H PRN Pain #21 tabs 04/29/23 Rx mg tablet hydrocodone 5 mg-acetaminophen 325 1 tab PO QIDP PRN Moderate Pain 04/29/23 04/29/23 History mg tablet (Scale Score 5-6) lisinopril 20 mg tablet 20 mg PO DAILY High Blood Pressure 04/29/23 04/29/23 History montelukast 10 mg tablet 10 mg PO HS Breathing Problems 04/29/23 04/29/23 History omeprazole 40 mg capsule,delayed 40 mg PO DAILY Acid Reflux 04/29/23 04/29/23 History release oxybutynin chloride 10 mg 10 mg PO DAILY Bladder 04/29/23 04/29/23 History tablet,extended release 24 hr New Prescriptions to Start Prescriptions: amoxicillin-pot clavulanate Ochoa Reeves
--- NOTE | 2023-04-28 22:11 | EXP.OP.NOTE ---
Date of procedure: 04/28/23 Pre-op Diagnosis:: Acute appendicitis Post-op Diagnosis:: Same Procedure performed:: Laparoscopic appendectomy Surgeon:: Ochoa Reeves MD [employer] MANAGER:: Peña Flowers Anesthesia: GETKobe Estimated blood loss (mL): 15 Operative findings:: Patient had an acute suppurative somewhat necrotic but nonperforated appendix. There is exudate surrounding the appendix with some necrosis. Appendix was adherent to the retroperitoneum lateral and posterior to the cecum. There were a few omental adhesions at the umbilicus from previous tubal ligation. She had appreciable fatty infiltration of the liver consistent with steatohepatitis. Operative note:: Consent was obtained and patient was taken the operating room. She was given preoperative intravenous antibiotics. In the operating room she was placed in a supine position. Anesthesia was induced via endotracheal tube. Kennedy catheter was placed. Abdomen was prepped and draped in the standard surgical fashion. Subumbilical skin incision was made. While performing abdominal wall lift Veress needle was inserted. CO2 pneumoperitoneum was achieved to 15 mmHg. 12 mm optical trocar was inserted at the umbilicus. There were a few omental adhesions. She was positioned in Trendelenburg position with left side down. 5 mm suprapubic trocar was inserted. Additional 5 mm trocar was inserted in the right upper abdomen. Cecum was mobilized medially. There was some cloudy fluid in the pelvis and in the pericecal location and this was suctioned free. There is inflammatory changes lateral and posterior to the cecum. Appendix was identified. Interestingly the tip of the appendix appeared to be relatively uninflamed but the mid body of the appendix down to his base was quite inflamed with fibrinous purulent exudate and some necrosis without perforation. It was rather difficult to deliver the appendix anteriorly due to posterior laterally dense peritoneal attachments. Poor exposure she required additional placement of 5 mm trocar in the right lower quadrant for retraction. These dense retroperitoneal attachments were taken down using SANTO ultrasonic harmonic enrico. Ultimately the appendix was delivered and retracted somewhat anteriorly. Mesoappendix was coagulated with SANTO ultrasonic harmonic enrico and divided. Ultimately dissection was carried down to the appendiceal base. Appendix was divided at its base with an endoscopic WAQAS linear cutting stapling device. Appendix was placed within an Endo Catch retrieval device and removed from the peritoneal cavity via the umbilical trocar site. Staple line was inspected for integrity and hemostasis which was assured. Limited irrigation was carried out. Adhesions at the umbilical site were taken down using SANTO ultrasonic harmonic enrico. Trocars were then removed as CO2 pneumoperitoneum was evacuated. Fascia at the umbilicus was closed with multiple interrupted 0 Vicryl sutures. Local anesthetic was infiltrated. Skin incisions were closed with 4-0 Monocryl in a subcuticular fashion. Dermabond and dressings were applied. Condition: stable Disposition: PACU Complications:: None immediately apparent
--- NOTE | 2023-04-28 22:18 | EXP.ANES.CKL ---
[facility] Disclaimer: The information contained in this section may have been updated after the patient was seen, as this information can be updated by other users. Medical History Bronchitis Carotid artery stenosis Cholesteatoma of right ear Deviated nasal septum Ear ache Ear pain Lumbar facet joint syndrome Neuropathy Perforation of right tympanic membrane SOB (shortness of breath) Social History Smoking Status: Current every day smoker tobacco type: cigarettes packs per day: 1 alcohol intake: current counseling provided: none substance use type: denies use current occupational status: disabled Travel in the last 8 weeks: None household members: significant other housing: skilled nursing current occupational exposures/hazards: No caffeine: Yes [facility] Anesthesia Checklist Patient Identification Patient Identification: Arm Band Structural Data Admitted From: Emergency Dept Planned Operative Procedure/s: Laparoscopic Appendectomy Consent for Planned Operative Procedure(s) Verified: Yes Verified Documents: Surgical Consent and History and Physical NPO Status Verified Time NPO: 00:00 Additional verifications Anesthesia Reactions: No Hx Blood Transfusions: No Blood Transfusion Reaction: No Airway Assessment Mallampati Score:: Class II C-Spine Mobility Assessed: Yes TMJ Mobility Assessed: Yes Dentition: Good Dentition Neurological Assessment Level of Consciousness: Awake and Alert Anesthesia Plan Anesthesia Risk discussed: Yes Anesthesia Plan: Verified ASA Class: III (E) Anesthesia Type: General
--- NOTE | 2023-04-28 22:19 | EXP.ANES.I ---
[facility] Anesthesia Record Part I Anesthesia Record I Intake, IV Amount: 1,100 Hydration: Adequate Estimated blood loss (mL): 10 Urine output (mL): 800 Blood Products used (#): none Blood Pressure: 133/81 SaO2: 95 Pulse Rate: 86 Airway Patency: Patent Respiratory Rate: 16 Temperature: 99.2 F Patient is:: Drowsy and Stable Stable to PACU at:: 22:15
--- NOTE | 2023-04-28 22:52 | PC.NURSE ---
PT ARRIVED TO FLOOR AT THIS TIME
--- NOTE | 2023-04-28 23:53 | PC.NURSE ---
RECEIVED PHONE REPORT FROM TIEN/OR-PACU NURSE AT 2240. PATIENT ARRIVED TO THE FLOOR VIA BED AT 2250 VIA BED. S/P LAP APPY. NO COMPLICATIONS. EBL 15 ML.
[2023-04-28 23:57] LABS: Microscopic, Urine URINE MICROSCOPIC (MICROSCOPIC)
[2023-04-29] VITALS (12 sets, daily range): BP systolic 96–125; BP diastolic 53–77; PULSE 72–84; RESP 16–18; TEMP 36.8–37.3; O2SAT 93–98; BMI 31.7
[2023-04-29 00:04] LABS: Appearance,Urine CLEAR (Clear); Bilirubin,Urine Negative (Negative); Blood, Urine Negative (Negative); Color,Urine YELLOW (Yellow); Glucose,Urine (UA) Negative (Negative); Ketones,Urine Negative (Negative); Leukocyte Esterase,Urine Negative (Negative); Nitrate,Urine Negative (Negative); PH,Urine 6.5 (5.0-8.5); Protein,Urine Negative (Negative); Urobilinogen,Urine 0.2 EU/dl (0.2)
[2023-04-29 00:15] LABS: Squamous Epithelial Cell,Urine Occasional #/hpf (0-5)
--- NOTE | 2023-04-29 03:23 | PC.NURSE ---
PATIENT RESTING COMFORTABLY. NPO. NO C/O PAIN OR DISCOMFORT. HAS 4 LAP INCISIONS, DRSGS C/D/I. ENCOURAGED TO USE INCENTIVE SPIROMETER. SPOUSE AT BEDSIDE.
--- NOTE | 2023-04-29 06:49 | EXP.SURG.PN ---
Subjective Narrative: Patient describes abdominal soreness . She wants to eat. Exam Data for Last 24 hours Vital signs and Labs for Last 24 Hours: Temp Pulse Resp BP Pulse Ox O2 Del Method 98.6 F 78 16 124/71 95 Room Air 04/29/23 05:40 04/29/23 05:40 04/29/23 05:40 04/29/23 05:40 04/29/23 05:40 04/29/23 05:44 Laboratory Results - last 24 hr 04/28/23 18:01: WBC 12.5 H, RBC 4.63, Hgb 15.0, Hct 43.0, MCV 92.9, MCH 32.5 H, MCHC 34.9, RDW 13.0, Plt Count 183, MPV 8.1, Neut % (Auto) 81.2 H, Lymph % (Auto) 14.3, [place] % (Auto) 4.0, Eos % (Auto) 0.2, Baso % (Auto) 0.3, Neut # (Auto) 10.2 H, Lymph # (Auto) 1.8, [place] # (Auto) 0.5, Eos # (Auto) 0.0, Baso # (Auto) 0.0, Sodium 132 L, Potassium 4.0, Chloride 101, Carbon Dioxide 23, Anion Gap 12.0, BUN 12, Creatinine 0.50 L, Estimated Creat Clear 178, Estimated GFR 129, Est GFR ( Amer) 156, Glucose 129 H, Calcium 9.0, Total Bilirubin 1.4 H, AST 83 H, ALT 71, Alkaline Phosphatase 83, Total Protein 8.0, Albumin 4.6, Globulin 3.4 H, Albumin/Globulin Ratio 1.4 04/28/23 20:55: Urine Color Yellow, Urine Appearance Clear, Urine pH 6.5, Ur Specific [place] 1.010, Urine Protein Negative, Urine Glucose (UA) Negative, Urine Ketones Negative, Urine Blood Negative, Urine Nitrate Negative, Urine Bilirubin Negative, Urine Urobilinogen 0.2, Ur Leukocyte Esterase Negative, Urine RBC None, Urine WBC None, Ur Squamous Epith Cells Occasional I & O for Last 24 hours: Intake & Output 04/26/23 04/27/23 04/28/23 04/29/23 11:59 11:59 11:59 11:59 Intake Total 2336 / 2336 Output Total 0 / 0 Balance 2336 / 2336 Weight 197 lb 9.6 oz *Routine Abdominal Exam Comments: Incisional soreness. Trocar dressing is dry Progress Note: A&P Assessment and plan (1) Appendicitis: Status: Acute Assessment and plan: Limited diet. Continue IV antibiotics. Possible discharge later today possibly on oral antibiotics given acute suppurative necrotic but nonperforated appendicitis (2) Gastroesophageal reflux disease: Status: Acute (3) Carotid artery stenosis: Status: Chronic (4) Hypertension: Status: Chronic (5) Pulmonary nodule: Status: Acute (6) Anxiety: Status: Acute (7) Tobacco use: Status: Acute (8) Obesity (BMI 30.0-34.9): Status: Acute (9) Dry eyes: Status: Acute (10) Low back pain with right-sided sciatica: Status: Acute
--- NOTE | 2023-04-29 07:39 | HMH.PHAINT1 ---
Pharmacy Intervention Comments: MEDICATION RECONCILIATION COMPLETED ON PATIENT USING EXTERNAL FILL HISTORY FROM PHARMACY AND LIST FROM PCP OFFICE. -ALBERTO DRAPER, NIDHID
[2023-04-29 07:46] LABS: Basophils % 0.1 % (0.1-2.0); Hematocrit 40.6 % (37.0-47.0); Hemoglobin 13.9 g/dL (12.2-16.2); Lymphocytes # 1.2 K/mm3 (0.7-4.5); Lymphocytes % 11.8 % (10-50); Mean Corpuscular HGB Conc 34.1 g/dL (31.8-35.4); Mean Corpuscular Hemoglobin 32.5 pg (27.0-31.2); Mean Corpuscular Volume 95.3 fl (81-99); Mean Platelet Volume 8.3 fl (7.4-10.4); Monocytes # 0.3 K/mm3 (0.1-1.0); Monocytes % 2.9 % (1.7-9.3); Neutrophils # 8.8 K/mm3 (1.8-7.8); Neutrophils % 85.1 % (37.0-80.0); Platelet Count 180 K/mm3 (142-424); Red Blood Count 4.26 M/mm3 (4.20-5.40); Red Cell Distribution Width 12.9 % (11.5-17.5); White Blood Count 10.3 K/mm3 (4.8-10.8)
[2023-04-29 07:47] LABS: MANUAL DIFFERENTIAL MANUAL DIFFERENTIAL (MANUAL DIFF)
[2023-04-29 08:03] LABS: Chloride 103 mmol/L (98-107)
[2023-04-29 08:04] LABS: Potassium 3.9 mmoL/L (3.5-5.1); Sodium 135 mmol/L (136-145)
[2023-04-29 08:06] LABS: Alanine Aminotransferase 51 U/L (12-78); Alkaline Phosphatase 70 U/L (38-126); Aspartate Amino Transferase 53 U/L (14-36); Bilirubin,Total 1.6 mg/dl (0.2-1.3); Blood Urea Nitrogen 9 mg/dl (7-17); Creatinine Clearance Estimated 153 mL/min (50-200); Estimated Glomerular Filt Rate 105 ml/min (>60); GFR (African American) 127 ML/MIN (>60)
[2023-04-29 08:07] LABS: Albumin/Globulin Ratio 1.4 (1.1-1.8); Anion Gap 8.9 mEq/L (5-15); Calcium 8.7 mg/dl (8.4-10.2); Carbon Dioxide 27 mmol/L (22.0-30.0); Globulin 2.9 g/dL (1.3-3.2); Glucose 135 mg/dl (74-100); Total Protein,Serum 6.9 g/dl (6.3-8.2)
--- NOTE | 2023-04-29 08:10 | EXP.DC.SUM ---
General Admission date:: 04/28/23 Discharge date: 04/29/23 HPI HPI HPI: Patient is a 52-year-old female smoker, HTN, obese who began this morning worsened abdominal pain in the right lower quadrant. She has no history of appendectomy or ovarian or uterine abnormalities in the past. Did have a little bit of dysuria a few days ago but denies other symptoms including diarrhea frequency urgency of urination fevers chills etc. Last meal was 10 AM. Obtained form Surgery: started with lower abdominal pain localized to the right lower quadrant. It became progressively more severe. She presented to the emergency department. She has had some associated nausea. Evaluation in the emergency department revealed mild leukocytosis of 12,500. Assessment in the emergency department was concerning for appendicitis. She had CT scan which revealed findings of uncomplicated appendicitis. Surgical consultation was obtained. emergent taken to OR patient seen post procedure. internal medicine asked for services. current stable. pain improved. complaining of some discomfort and nauseas, as well as eyes irritation from allergies. Hospital Course Hospital Course Hospital Course: 49-year-old female who presented with abdominal pain. Found to have appendicitis. Surgery consulted. Patient admitted to medicine for observation after surgical procedure. Surgery took her for appendectomy. Tolerated procedure well. Stable for discharge home. Problems addressed as follows. -Appendicitis s/p appendectomy: Monitored overnight for observation and pain management. Started on Unasyn IV given the suppurative nature of her appendicitis. Discussed case with surgery, transition to Augmentin to complete 5-day course of antibiotics. Patient tolerating p.o. intake. No significant abdominal pain. Oral opiates sent for pain control. Follow-up in the coming week with surgery for reevaluation. - Gerd, CAD, anxiety, and HTN : Continue home medications for chronic conditions except amlodipine. Blood pressure soft during admission. Slight adjustment to blood pressure regimen pending follow-up as an outpatient. Exam Data for Last 24 hours Vital signs and Labs for Last 24 Hours: Temp Pulse Resp BP Pulse Ox O2 Del Method 98.8 F 72 18 96/53 L 95 Room Air 04/29/23 07:36 04/29/23 07:36 04/29/23 07:36 04/29/23 07:36 04/29/23 07:59 04/29/23 08:03 Laboratory Results - last 24 hr 04/28/23 18:01: WBC 12.5 H, RBC 4.63, Hgb 15.0, Hct 43.0, MCV 92.9, MCH 32.5 H, MCHC 34.9, RDW 13.0, Plt Count 183, MPV 8.1, Neut % (Auto) 81.2 H, Lymph % (Auto) 14.3, [place] % (Auto) 4.0, Eos % (Auto) 0.2, Baso % (Auto) 0.3, Neut # (Auto) 10.2 H, Lymph # (Auto) 1.8, [place] # (Auto) 0.5, Eos # (Auto) 0.0, Baso # (Auto) 0.0, Sodium 132 L, Potassium 4.0, Chloride 101, Carbon Dioxide 23, Anion Gap 12.0, BUN 12, Creatinine 0.50 L, Estimated Creat Clear 178, Estimated GFR 129, Est GFR ( Amer) 156, Glucose 129 H, Calcium 9.0, Total Bilirubin 1.4 H, AST 83 H, ALT 71, Alkaline Phosphatase 83, Total Protein 8.0, Albumin 4.6, Globulin 3.4 H, Albumin/Globulin Ratio 1.4 04/28/23 20:55: Urine Color Yellow, Urine Appearance Clear, Urine pH 6.5, Ur Specific [place] 1.010, Urine Protein Negative, Urine Glucose (UA) Negative, Urine Ketones Negative, Urine Blood Negative, Urine Nitrate Negative, Urine Bilirubin Negative, Urine Urobilinogen 0.2, Ur Leukocyte Esterase Negative, Urine RBC None, Urine WBC None, Ur Squamous Epith Cells Occasional 04/29/23 06:18: WBC 10.3, RBC 4.26, Hgb 13.9, Hct 40.6, MCV 95.3, MCH 32.5 H, MCHC 34.1, RDW 12.9, Plt Count 180, MPV 8.3, Neut % (Auto) 85.1 H, Lymph % (Auto) 11.8, [place] % (Auto) 2.9, Eos % (Auto) 0.0 L, Baso % (Auto) 0.1, Neut # (Auto) 8.8 H, Lymph # (Auto) 1.2, [place] # (Auto) 0.3, Eos # (Auto) 0.0, Baso # (Auto) 0.0 I & O for Last 24 hours: Intake & Output 04/26/23 04/27/23 04/28/23 04/29/23 23:59 23:59 23:59 23:59 Intake Total 1100 / 1700 1236 / 12
[2023-04-29 09:03] LABS: Lymphocytes % 14 % (10-50); Monocytes % 3 % (2-9); Neutrophils % 83 % (42-76); Total Cells Counted 100
[2023-04-29 09:04] LABS: Platelet Estimate Normal; Stomatocytes 1+
--- NOTE | 2023-04-29 13:53 | EXP.ANES.II ---
[facility] Anesthesia Record Part II Anesthesia Record Part II Discharge Time: 22:45 Destination: Medical Surgical Department PACU nurse assessment reviewed?: Yes Patient Condition:: Good Anesthesia Complications:: None Swallowing reflex intact?: Yes Airway Patency: Patent Cyanosis?: No Blood Pressure: 105/64 SaO2: 95 Respiratory Rate: 16 Pulse Rate: 84 Temperature: 99.2 F Mental Status: Alert & Oriented Pain level:: 0 Nausea and/or vomitting:: None Intake, IV Amount: 0 Hydration: Adequate
--- NOTE | 2023-05-03 13:35 | CARE MANAGER ---
Contacted patient related to hospital discharge. She states she does have some drainage from her belly button. She is taking her antibiotic but has not run a fever. She denies questions. Issues forwarded to med/surg market research senior project manager. JEANNE Encinas
== END 2023-04-29 15:15 | disposition home or self-care (01) ==
LOC: ER 20:18 → SDC 20:20 → 2ND 21:47
PROVIDERS: Nurse Practitioner Family; Surgery; Admitting Provider Internal Medicine Adolescent Medicine; Emergency Provider Student in an Organized Health Care Education/Training Program; PCP Nurse Practitioner Family; Visit Provider Internal Medicine Adolescent Medicine
PROC: 0DTJ4ZZ Resection of Appendix, Percutaneous Endoscopic Approach (ICD-10-PCS; CPT 44970; principal; 2023-04-28 09:00)
DX: K35.80 Unspecified acute appendicitis (principal); F17.210 Nicotine dependence, cigarettes, uncomplicated; R91.1 Solitary pulmonary nodule; I10 Essential (primary) hypertension; I65.23 Occlusion and stenosis of bilateral carotid arteries; F41.9 Anxiety disorder, unspecified; H04.123 Dry eye syndrome of bilateral lacrimal glands; M54.41 Lumbago with sciatica, right side; G89.29 Other chronic pain; Z79.899 Other long term (current) drug therapy; K21.9 Gastro-esophageal reflux disease without esophagitis; E66.9 Obesity, unspecified; Z68.31 Body mass index [BMI] 31.0-31.9, adult
CPT/HCPCS: 44970; 74177; 80053; 81001; 85007; 85025; 99291; G0378; J2405; Q9967

== ENCOUNTER 2023-05-06 09:34 | Outpatient (CLI) | payer MEDICAID, SELFPAY ==
--- NOTE | 2023-05-06 11:31 | PC.NURSE ---
0950 - REMOVED DRESSING AND PACKING FROM PT'S UMBILICUS. IRRIGATED WOUND WITH NS AND DRIED OUT WITH GAUZE. WOUND GOES DOWNWARD AROUND 1CM. WOUND BED RED AND MOIST. REPACKED WITH NS MOISTENED GAUZE, COVERED WITH DRY 4X4 FOLDED INTO 1/4, AND PLACED TEGADERM OVER DRESSING. WALKED PT'S SPOUSE THROUGH PROCESS OF COMPLETING DRESSING CHANGES AND HE TOOK PART IN THE PROCEDURE AND VERBALIZED UNDERSTANDING. HE PLANS TO DO DRESSING CHANGES THROUGH THE WEEKEND AND RETURN ON TUESDAY FOR US TO ASSESS. DRESSING SUPPLIES GIVEN.
== END 2023-05-06 10:05 | disposition home or self-care (01) ==
LOC: INF 09:35
PROVIDERS: PCP Nurse Practitioner Family; Visit Provider Surgery
DX: Z48.01 Encounter for change or removal of surgical wound dressing (principal)
CPT/HCPCS: G0463

== ENCOUNTER 2023-05-09 10:01 | Outpatient (CLI) | payer MEDICAID, SELFPAY | END 2023-05-09 10:18 | disposition home or self-care (01) | PROVIDERS: PCP Nurse Practitioner Family; Visit Provider Surgery | DX: Z48.01 Encounter for change or removal of surgical wound dressing (principal) | CPT/HCPCS: G0463 ==

== ENCOUNTER 2023-05-11 09:42 | Outpatient (CLI) | payer MEDICAID, SELFPAY | END 2023-05-11 10:02 | disposition home or self-care (01) | LOC: INF 09:42 | PROVIDERS: PCP Nurse Practitioner Family; Visit Provider Surgery | DX: Z48.01 Encounter for change or removal of surgical wound dressing (principal) | CPT/HCPCS: G0463 ==

== ENCOUNTER 2023-06-15 12:55 | Outpatient (CLI) | payer MEDICAID, SELFPAY ==
[2023-06-15 16:55] LABS: Amphetamine/Metha Screen,Urine Negative ng/ml (<1000); Benzodiazepines Screen,Urine Negative ng/ml (<200)
[2023-06-15 16:56] LABS: Barbiturates Screen,Urine Negative ng/ml (<200)
[2023-06-15 16:57] LABS: Cannabinoid Screen,Urine Negative ng/ml (<50); Cocaine Screen,Urine Negative ng/ml (<300)
[2023-06-15 16:58] LABS: Methadone Screen,Urine Negative ng/ml (<300)
[2023-06-15 16:59] LABS: Opiate Screen,Urine Positive ng/ml (<300); Phencyclidine Screen,Urine Negative ng/ml (<25)
[2023-06-21 18:07] LABS: Alprazolam Negative (Cutoff=100); Benzodiazepines Positive ng/mL (Cutoff=100); Clonazepam Positive (.); Clonazepam Confirm 104 ng/mL (Cutoff=100); Codeine Negative (Cutoff=100); Flurazepam Negative (Cutoff=100); Hydrocodone Positive (.); Hydromorphone Negative (Cutoff=100); Lorazepam Negative (Cutoff=100); Midazolam Negative (Cutoff=100); Morphine Negative (Cutoff=100); Opiates Positive (.); Temazepam Negative (Cutoff=100); Triazolam Negative (Cutoff=100)
== END 2023-06-15 23:59 ==
LOC: LAB.DROPOF 12:55
PROVIDERS: PCP Nurse Practitioner Family; Visit Provider Nurse Practitioner Family
DX: Z79.899 Other long term (current) drug therapy (principal)
CPT/HCPCS: 80307; 80346; 80361; 80365; G0480

== ENCOUNTER 2023-07-12 08:19 | Outpatient (CLI) | payer MEDICAID, SELFPAY ==
--- NOTE | 2023-07-12 08:19 | MM_ITS ---
PROCEDURE INFORMATION: Exam: MG Bilateral Screening 3D Mammography Exam date and time: 07/12/2023 8:19 AM Age: 52 years old Clinical indication: Screening mammogram TECHNIQUE: Imaging protocol: Bilateral Screening tomosynthesis and 2D mammography including computer-aided detection (CAD) when performed. COMPARISON: 1. MG MM DIG SCREENING MAMM BI W/CAD 03/09/2022 11:02 AM 2. MG MM DIG SCREENING MAMM BI W/CAD 12/25/2020 10:48 AM 3. MG MM DIG SCREENING MAMM BI W/CAD 04/09/2020 9:26 AM 4. MG SCBI MM Dig screening mamm BI w/CAD 03/27/2018 11:06 AM FINDINGS: MAMMOGRAPHY: Breast composition: The breasts are almost entirely fatty. Mass: None. Architectural distortion: No new or suspicious architectural distortion. Calcifications: No new or suspicious calcifications are present Asymmetric density: No new or suspicious asymmetric density is present Skin thickening: None. Axillary adenopathy: None. IMPRESSION: No mammographic evidence of malignancy. Recommend annual screening mammography unless otherwise clinically indicated. ASSESSMENT: BI-RADS category 1: Negative
== END 2023-07-12 23:59 ==
LOC: RAD 08:19
PROVIDERS: PCP Nurse Practitioner Family; Visit Provider Obstetrics & Gynecology
DX: Z12.31 Encounter for screening mammogram for malignant neoplasm of breast (principal)
CPT/HCPCS: 77063; 77067

== ENCOUNTER 2023-10-04 10:37 | Outpatient (CLI) | payer MEDICAID, SELFPAY ==
--- NOTE | 2023-10-04 10:40 | XR_ITS ---
FINAL REPORT CLINICAL HISTORY: R Knee pain COMPARISON: None FINDINGS: 4 images of the right knee were obtained. There is no evidence of fracture or dislocation. Mild degenerative change is present with mild medial compartment narrowing. A small to moderate joint effusion is present. IMPRESSION: Mild degenerative change with mild medial compartment narrowing. Small to moderate joint effusion. Reviewed, Interpreted and Dictated by Ochoa Pinto III, MD Transcribed by Katina Phillips Authenticated and [facility]
== END 2023-10-04 23:59 | disposition home or self-care (01) ==
LOC: RAD 10:38
PROVIDERS: PCP Nurse Practitioner Family; Visit Provider Nurse Practitioner Family
DX: M25.561 Pain in right knee (principal)
CPT/HCPCS: 73562

== ENCOUNTER 2024-04-26 10:00 | Outpatient (RCR) | payer MEDICAID, SELFPAY | END 2024-04-26 23:59 | disposition home or self-care (01) | LOC: PT 10:00 | PROVIDERS: PCP Nurse Practitioner Family; Visit Provider Physician Assistant | DX: M17.11 Unilateral primary osteoarthritis, right knee (principal) | CPT/HCPCS: 97014; 97110; 97163; G0283 ==

== ENCOUNTER 2024-06-09 09:59 | Emergency (ER) | payer MEDICAID, SELFPAY ==
[2024-06-09 10:05] VITALS: BP 141/82; PULSE 81; RESP 16; TEMP 37; O2SAT 97; BMI 37.0
--- NOTE | 2024-06-09 10:13 | EXP.UTC ---
Discharge Plan Disposition Patient Disposition: Home, Self-Care Condition: Good Prescriptions Prescriptions: New amoxicillin-pot clavulanate 875-125 mg tablet 1 tab PO Q12H 10 Days Qty: 20 0RF No Action naloxone [Narcan] 4 mg/actuation spray,non-aerosol 1 spray intranasal Q3M Qty: 2 3RF Rx Instructions: spray 1 dose into ONE nostril; alternate nostrils w each dose until help arrives clonazepam 0.5 mg tablet 0.5 mg PO BID Qty: 60 3RF ketotifen fumarate [Allergy Eye (ketotifen)] 0.025 % (0.035 %) drops 1 drp ophthalmic (eye) Q12H Qty: 5 2RF fluticasone propionate 50 mcg/actuation spray,suspension See Rx Instructions .ROUTE .COMPLEX Qty: 16 2RF Dose Instruction: USE 1 SPRAY IN EACH NOSTRIL ONCE A DAY FOR ALLERGY SYMPTOMS Rx Instructions: USE 1 SPRAY IN EACH NOSTRIL ONCE A DAY FOR ALLERGY SYMPTOMS oxybutynin chloride 10 mg tablet extended release 24hr 10 mg PO DAILY Qty: 90 3RF cholecalciferol (vitamin D3) 25 mcg (1,000 unit) tablet See Rx Instructions .ROUTE .COMPLEX Qty: 90 3RF Dose Instruction: TAKE ONE TABLET BY MOUTH ONCE A DAY FOR SUPPLEMENT Rx Instructions: TAKE ONE TABLET BY MOUTH ONCE A DAY FOR SUPPLEMENT albuterol sulfate 90 mcg/actuation HFA aerosol inhaler See Rx Instructions .ROUTE .COMPLEX Qty: 8.5 3RF Dose Instruction: INHALE 2 PUFFS BY MOUTH EVERY 4 TO 6 HOURS NEEDED FOR PERSISTENT COUGH, WHEEZING, CHEST TIGHTNESS OR SHORTNESS OF BREATH Rx Instructions: INHALE 2 PUFFS BY MOUTH EVERY 4 TO 6 HOURS NEEDED FOR PERSISTENT COUGH, WHEEZING, CHEST TIGHTNESS OR SHORTNESS OF BREATH cyclobenzaprine 10 mg tablet See Rx Instructions .ROUTE .COMPLEX Qty: 90 2RF Dose Instruction: TAKE ONE TABLET BY MOUTH 3 TIMES A DAY NEEDED FOR MUSCLE SPASMS Rx Instructions: TAKE ONE TABLET BY MOUTH 3 TIMES A DAY NEEDED FOR MUSCLE SPASMS cetirizine 10 mg tablet See Rx Instructions .ROUTE .COMPLEX Qty: 30 2RF Dose Instruction: TAKE ONE TABLET BY MOUTH ONCE A DAY Rx Instructions: TAKE ONE TABLET BY MOUTH ONCE A DAY montelukast 10 mg tablet See Rx Instructions .ROUTE .COMPLEX Qty: 30 2RF Dose Instruction: TAKE ONE TABLET BY MOUTH AT BEDTIME FOR BREATHING PROBLEMS Rx Instructions: TAKE ONE TABLET BY MOUTH AT BEDTIME FOR BREATHING PROBLEMS aspirin 81 mg tablet,delayed release (DR/EC) See Rx Instructions .ROUTE .COMPLEX Qty: 90 2RF Dose Instruction: TAKE ONE TABLET BY MOUTH ONCE A DAY [facility] Rx Instructions: TAKE ONE TABLET BY MOUTH ONCE A DAY [facility] hydrocodone-acetaminophen 5-325 mg tablet 1 tab PO QIDP PRN (Reason: Moderate Pain (Scale Score 5-6)) Qty: 120 0RF lisinopril 20 mg tablet See Rx Instructions .ROUTE .COMPLEX Qty: 90 1RF Dose Instruction: TAKE ONE TABLET BY MOUTH ONCE A DAY FOR HIGH BLOOD PRESSURE Rx Instructions: TAKE ONE TABLET BY MOUTH ONCE A DAY FOR HIGH BLOOD PRESSURE amlodipine 10 mg tablet See Rx Instructions .ROUTE .COMPLEX Qty: 90 1RF Dose Instruction: TAKE ONE TABLET BY MOUTH ONCE A DAY FOR BLOOD PRESSURE Rx Instructions: TAKE ONE TABLET BY MOUTH ONCE A DAY FOR BLOOD PRESSURE bisoprolol fumarate 5 mg tablet See Rx Instructions .ROUTE .COMPLEX Qty: 90 1RF Dose Instruction: TAKE ONE TABLET BY MOUTH ONCE A DAY FOR HIGH BLOOD PRESSURE Rx Instructions: TAKE ONE TABLET BY MOUTH ONCE A DAY FOR HIGH BLOOD PRESSURE omeprazole 40 mg capsule,delayed release(DR/EC) See Rx Instructions .ROUTE .COMPLEX Qty: 90 3RF Dose Instruction: TAKE 1 CAPSULE BY MOUTH ONCE A DAY FOR ACID REFLUX Rx Instructions: TAKE 1 CAPSULE BY MOUTH ONCE A DAY FOR ACID REFLUX Referrals Follow up/Referrals: Armani Moser APRN [Primary Care Provider] - See instructions Activity Restrictions/Add. Instructions Additional Instructions/Restrictions: Take medication as prescribed. Follow up with dentist. Clinical Impressions Clinical Impression: Dental abscess Instructions Patient Instructions: Tooth Abscess, DI for Dental Pain Print Language Print Language: Greek Discharge ED Provider: [facility] HPI General Stated complaint: possible tooth infection Mode of Arrival: Ambulatory Source of Information: Patient Limitations: No Limitations Time Seen by Provider: 06/09/24 10:10 Description of Symptoms (Recalled from Triage Doc. by RN): PATIENT C/O TOOTH PAIN SINCE YESTERDAY HEENT Symptoms (Recalled from RN notes): Yes Resp Symptoms (Recalled from RN notes): No Skin Symptoms (Recalled from RN notes): No MS Symptoms (Recalled from RN notes): No Functional Status (Recalled from RN notes): WNL History of Present Illness Provider Complaint: Pt reports that she has had a severe tooth ache since yesterday. She has taken hydrocodone for her pain. She reports that she has an appointment to have her teeth cleaned on that side. Related Data Previous Rx's ?Medication ?Instructions ?Recorded naloxone 4 mg/actuation nasal 1 spray intranasal Q3M #2 ea 06/15/23 spray (Narcan) ketotifen fumarate 0.025 % (0.035 1 drp ophthalmic (eye) Q12H #5 mL 07/06/23 %) eye drops (Allergy Eye (ketotifen)) fluticasone propionate 50 See Rx Instructions .Route 08/08/23 mcg/actuation nasal .COMPLEX #16 grams spray,suspension oxybutynin chloride 10 mg 10 mg PO DAILY Bladder #90 tabs 01/26/24 tablet,extended release 24 hr albuterol sulfate 90 mcg/actuation See Rx Instructions .Route 03/05/24 aerosol inhaler .COMPLEX #8.5 grams cholecalciferol (vitamin D3) 25 See Rx Instructions .Route 03/05/24 mcg (1,000 unit) tablet .COMPLEX #90 tabs cyclobenzaprine 10 mg tablet See Rx Instructions .Route 03/27/24 .COMPLEX #90 tabs clonazepam 0.5 mg tablet 0.5 mg PO BID Anxiety #60 tabs 03/28/24 aspirin 81 mg tablet,delayed See Rx Instructions .Route 05/08/24 release .COMPLEX #90 tabs cetirizine 10 mg tablet See Rx Instructions .Route 05/08/24 .COMPLEX #30 tabs montelukast 10 mg tablet See Rx Instructions .Route 05/08/24 .COMPLEX #30 tabs hydrocodone 5 mg-acetaminophen 325 1 tab PO QIDP PRN Moderate Pain 05/10/24 mg tablet (Scale Score 5-6) #120 tabs amlodipine 10 mg tablet See Rx Instructions .Route 05/17/24 .COMPLEX #90 tabs bisoprolol fumarate 5 mg tablet See Rx Instructions .Route 05/17/24 .COMPLEX #90 tabs lisinopril 20 mg tablet See Rx Instructions .Route 05/17/24 .COMPLEX #90 tabs omeprazole 40 mg capsule,delayed See Rx Instructions .Route 05/29/24 release .COMPLEX #90 caps amoxicillin 875 mg-potassium 1 tab PO Q12H 10 days #20 tabs 06/09/24 clavulanate 125 mg tablet Allergies Allergy/AdvReac Type Severity Reaction Status Date / Time No Known Drug Allergies Allergy Unknown NONE Verified 03/28/24 09:50 Worker's Comp Is this a Worker's Comp case?: No [facility] Disclaimer: The information contained in this section may have been updated after the patient was seen, as this information can be updated by other users. Medical History History of appendicitis Perforation of right tympanic membrane Deviated nasal septum Cholesteatoma of right ear Ear pain Ear ache Bronchitis Neuropathy Lumbar facet joint syndrome SOB (shortness of breath) Carotid artery stenosis Surgical History History of appendectomy Family History Mother Cancer breast Social History Smoking Status: Current every day smoker tobacco type: cigarettes packs per day: 1 alcohol intake: current alcohol intake frequency: holidays/special occasions only counseling provided: none substance use type: denies use current occupational status: disabled Travel in the last 8 weeks: None household members: significant other housing: [facility] current occupational exposures/hazards: No caffeine: Yes Have you lived/traveled outside [place] in past 30 days?: No Contact w/someone who lives/traveled outside US past 30 days?: No Exposure to someone with infectious disease in past 14 days?: No Do you have a fever (greater than 100.4 F or 38 C)?: No Have you tested positive for COVID-19: No Exposed to someone with COVID-19 in past 14 days?: No Do you have a sore throat?: No Do you have a cough?: No Do you have any weakness?: No Do you have any diarrhea?: No Are you experiencing any unusual bleeding?: No Do you have any muscle aches/pain?: No Do you have any abdominal pain?: No Are you experiencing loss of taste or smell?: No ROS Obtained: Yes All systems reviewed & no additional complaints except as documented Constitutional Constitutional: Reports system reviewed and no additional complaints, except as documented Eyes Eyes: Reports system reviewed and no additional complaints, except as documented ENT Ears, Nose, Mouth, and Throat: Reports system reviewed and no additional complaints, except as documented and Reports dental pain Cardiovascular Cardiovascular: Reports system reviewed and no additional complaints, except as documented Respiratory Respiratory: Reports system reviewed and no additional complaints, except as documented Gastrointestinal Gastrointestingal: Reports system reviewed and no additional complaints, except as documented Genitourinary Female Genitourinary: Reports system reviewed and no additional complaints, except as documented Musculoskeletal Musculoskeletal: Reports system reviewed and no additional complaints, except as documented Integumentary/Breasts Skin/Breast: Reports system reviewed and no additional complaints, except as documented Neurologic Neurologic: Reports system reviewed and no additional complaints, except as documented Endocrine Endocrine: Reports system reviewed and no additional complaints, except as documented Hematologic/Lymphatic Henatologic/Lymphatic: Reports system reviewed and no additional complaints, except as documented Allergic/Immunologic Allergic/Immunologic: Reports system reviewed and no additional complaints, except as documented Physical Exam General General appearance: alert and in no apparent distress Head Head exam: atraumatic and normocephalic Eye Eye exam: Present normal appearance Expanded ENT Exam External ear exam: Present normal external inspection Nasal speculum exam: Bilateral: normal Mouth exam: Present normal external inspection Teeth exam: Present dental caries, dental tenderness # (#23) and gingival swelling Throat exam: Present normal inspection Neck Neck exam: Present normal inspection; Absent lymphadenopathy Chest Chest inspection: Present normal inspection and symmetric chest wall rise Respiratory Respiratory exam: Present normal lung sounds bilaterally Cardiovascular Cardiovascular exam: Present regular rate, normal rhythm and normal heart sounds Abdominal Exam Abdominal exam: Present soft and normal bowel sounds Extremities Exam Extremities exam: Present normal inspection Back Exam Back exam: Present normal inspection Neurological Exam Neurological exam: Present alert and oriented X3 Psychiatric Psychiatric exam: Present normal affect and normal mood Skin Skin exam: Present warm, dry and intact Lymphatic Lymphatic Findings: no adenopathy Medical Decision Making Medical Records Screening: Per USPSTF and CDC recommendations, given the prevalence of disease in our region, it is our hospital?s policy to screen for HIV and viral Hepatitis for all patients aged 18 and over and those with ongoing risk factors. Gio Inquiry Pt receiving controlled substance: No Gio was queried for this patient: No Vital Signs: 06/09/24 10:05 Temperature 98.6 F Temperature Source Oral Pulse Rate [Left Brachial] 81 Respiratory Rate 16 Blood Pressure [Left Arm] 141/82 H Blood Pressure Mean [Left Arm] 101 Blood Pressure Source [Left Arm] Automatic Cuff Blood Pressure Position [Left Arm] Sitting 02 Sat by Pulse Oximetry 97 Oxygen Delivery Method Room Air
[2024-06-09 10:25] VITALS: BP 141/82; PULSE 81; RESP 16; TEMP 37; O2SAT 97
== END 2024-06-09 10:27 | disposition home or self-care (01) ==
PROVIDERS: Emergency Provider Nurse Practitioner Family; PCP Nurse Practitioner Family
DX: K04.7 Periapical abscess without sinus (principal)
CPT/HCPCS: 99212; G0381

== ENCOUNTER 2024-09-19 08:53 | Outpatient (CLI) | payer MEDICAID, SELFPAY ==
[2024-09-19 18:20] LABS: Basophils % 0.5 % (0.1-2.0); Eosinophils # 0.1 Kmm3 (0.0-0.4); Eosinophils % 1.3 % (0.1-12.0); Hematocrit 47.1 % (37.0-47.0); Hemoglobin 15.6 g/dL (12.2-16.2); Lymphocytes # 3.4 K/mm3 (0.7-4.5); Lymphocytes % 39.5 % (10-50); Mean Corpuscular HGB Conc 33.1 g/dL (31.8-35.4); Mean Corpuscular Hemoglobin 30.6 pg (27.0-31.2); Mean Corpuscular Volume 92.5 fl (81-99); Mean Platelet Volume 10.4 fl (7.4-10.4); Monocytes # 0.7 K/mm3 (0.1-1.0); Monocytes % 7.7 % (1.7-9.3); Neutrophils # 4.3 K/mm3 (1.8-7.8); Neutrophils % 50.5 % (37.0-80.0); Nucleated Red Blood Cells # 0 10^3/uL; Nucleated Red Blood Cells % 0 %; Platelet Count 194 K/mm3 (142-424); Red Blood Count 5.09 M/mm3 (4.20-5.40); Red Cell Distribution Width 13.2 % (11.5-17.5); Red Cell Distribution Width-SD 45.1 fL; White Blood Count 8.6 K/mm3 (4.8-10.8)
[2024-09-19 18:44] LABS: Alanine Aminotransferase 97 U/L (12-78); Albumin Level 4.9 g/dl (3.5-5.0); Albumin/Globulin Ratio 1.8 (1.1-1.8); Alkaline Phosphatase 112 U/L (38-126); Anion Gap 9.4 mEq/L (5-15); Aspartate Amino Transferase 110 U/L (14-36); Bilirubin,Total 1.3 mg/dl (0.2-1.3); Blood Urea Nitrogen 7 mg/dl (7-17); Calcium 9.7 mg/dl (8.4-10.2); Carbon Dioxide 25 mmol/L (22.0-30.0); Chloride 106 mmol/L (98-107); Cholesterol 185 mg/dl (140-200); Estimated Glomerular Filt Rate 104 ml/min (>60); GFR (African American) 126 ML/MIN (>60); Globulin 2.7 g/dL (1.3-3.2); Glucose 97 mg/dl (74-100); HDL Cholesterol 37 mg/dl (40-60); Potassium 4.4 mmoL/L (3.5-5.1); Sodium 136 mmol/L (136-145); Total Protein,Serum 7.6 g/dl (6.3-8.2); Triglycerides 342 mg/dl (30-150); VLDL Cholesterol 68 mg/dL (0-40)
[2024-09-19 18:54] LABS: Direct LDL Cholesterol 82.67 mg/dL (100-129)
[2024-09-19 19:01] LABS: 25-OH Vitamin D, Total 38.6 ng/mL (30-100)
[2024-09-19 19:15] LABS: Thyroid Stimulating Hormone 1.72 uIU/mL (0.465-4.68)
== END 2024-09-19 23:59 | disposition home or self-care (01) ==
LOC: LAB.DROPOF 09-21 08:54
PROVIDERS: PCP Nurse Practitioner Family; Visit Provider Nurse Practitioner Family
DX: I10 Essential (primary) hypertension (principal); Z68.34 Body mass index [BMI] 34.0-34.9, adult; E66.9 Obesity, unspecified; Z87.891 Personal history of nicotine dependence
CPT/HCPCS: 80053; 80061; 82306; 84443; 85025

== ENCOUNTER 2024-10-11 07:20 | Day surgery (SDC) | payer MEDICAID, SELFPAY ==
[2024-10-09 12:02] VITALS: BMI 34.5
[2024-10-11 07:58] VITALS: BP 130/80; PULSE 78; RESP 16; TEMP 36.5; O2SAT 96
[2024-10-11] MEDS: LACTATED RINGERS 1000ML 1,000 ML 50 ML IV (08:11)
--- NOTE | 2024-10-11 08:30 | EXP.ANES.CKL ---
[facility] Disclaimer: The information contained in this section may have been updated after the patient was seen, as this information can be updated by other users. Medical History Carpal tunnel syndrome of left wrist History of appendicitis Perforation of right tympanic membrane Deviated nasal septum Cholesteatoma of right ear Ear pain Ear ache Bronchitis Neuropathy Lumbar facet joint syndrome SOB (shortness of breath) Carotid artery stenosis Surgical History History of appendectomy Family History Mother Cancer breast Social History Smoking Status: Current every day smoker tobacco type: cigarettes packs per day: 1 alcohol intake: current alcohol intake frequency: holidays/special occasions only counseling provided: none substance use type: denies use current occupational status: disabled Travel in the last 8 weeks?: None household members: significant other housing: senior care current occupational exposures/hazards: No caffeine: Yes Have you lived/traveled outside US in past 30 days?: No Contact w/someone who lives/traveled outside US past 30 days?: No Exposure to someone with infectious disease in past 14 days?: No Do you have a fever (greater than 100.4 F or 38 C)?: No Have you tested positive for COVID-19?: No Exposed to someone with COVID-19 in past 14 days?: No Do you have a sore throat?: No Do you have a cough?: No Do you have any weakness?: No Do you have any diarrhea?: No Are you experiencing any unusual bleeding?: No Do you have any muscle aches/pain?: No Do you have any abdominal pain?: No Are you experiencing loss of taste or smell?: No [facility] Anesthesia Checklist Patient Identification Patient Identification: Verbal (Name & ) Structural Data Admitted From: Home Planned Operative Procedure/s: egd/colon Consent for Planned Operative Procedure(s) Verified: Yes NPO Status Verified Time NPO: 00:00 Additional verifications Anesthesia Reactions: No Hx Blood Transfusions: No Blood Transfusion Reaction: No Airway Assessment Mallampati Score:: Class II C-Spine Mobility Assessed: Yes TMJ Mobility Assessed: Yes Dentition: Poor Dentition Neurological Assessment Level of Consciousness: Awake, Alert and Appropriate Anesthesia Plan Anesthesia Risk discussed: Yes Anesthesia Plan: Verified ASA Class: II Anesthesia Type: MAC
--- NOTE | 2024-10-11 09:12 | P.HP_ITS ---
History of Present Illness *Admission Date: 10/11/24 *Reason for visit:: GERD/epigastric abdominal pain/history of ulcers and melena *History of present illness: Mrs. Salvador is a 53-year-old female with epigastric abdominal pain, GERD, history of gastric ulcers and melena for upper endoscopy and bloating, bowel irregularity and generalized abdominal pain for colonoscopy who is here for diagnostic EGD and colonoscopy. The examination is deemed medically necessary for diagnostic EGD and colonoscopy. The patient has been seen, interviewed and examined prior to the procedure by both myself and the anesthesia provider. [facility] Disclaimer: The information contained in this section may have been updated after the patient was seen, as this information can be updated by other users. Medical History Carpal tunnel syndrome of left wrist History of appendicitis Perforation of right tympanic membrane Deviated nasal septum Cholesteatoma of right ear Ear pain Ear ache Bronchitis Neuropathy Lumbar facet joint syndrome SOB (shortness of breath) Carotid artery stenosis Surgical History History of appendectomy Family History Mother Cancer breast Social History Smoking Status: Current every day smoker tobacco type: cigarettes packs per day: 1 alcohol intake: current alcohol intake frequency: holidays/special occasions only counseling provided: none substance use type: denies use current occupational status: disabled Travel in the last 8 weeks?: None household members: significant other housing: retirement current occupational exposures/hazards: No caffeine: Yes Have you lived/traveled outside US in past 30 days?: No Contact w/someone who lives/traveled outside US past 30 days?: No Exposure to someone with infectious disease in past 14 days?: No Do you have a fever (greater than 100.4 F or 38 C)?: No Have you tested positive for COVID-19?: No Exposed to someone with COVID-19 in past 14 days?: No Do you have a sore throat?: No Do you have a cough?: No Do you have any weakness?: No Do you have any diarrhea?: No Are you experiencing any unusual bleeding?: No Do you have any muscle aches/pain?: No Do you have any abdominal pain?: No Are you experiencing loss of taste or smell?: No Other Medical History Have you received the Flu Vaccine for this season: No Have you received the Pneumonia Vaccine: Yes Review of Systems Review of Systems Review of systems (narrative): Negative *Cardiovascular Comments: Negative *Gastrointestinal Comments: Negative *Genitourinary Comments: Negative *Musculoskeletal Comments: Negative *Neurologic Comments: Negative Meds Home Medications and Allergies Home Medications ?Medication ?Instructions ?Recorded ?Confirmed ?Type naloxone 4 mg/actuation nasal 1 spray intranasal Q3M #2 ea 06/15/23 10/11/24 Rx spray (Narcan) oxybutynin chloride 10 mg 10 mg PO DAILY Bladder #90 tabs 01/26/24 10/11/24 Rx tablet,extended release 24 hr cholecalciferol (vitamin D3) 25 See Rx Instructions .Route 03/05/24 10/11/24 Rx mcg (1,000 unit) tablet .COMPLEX #90 tabs aspirin 81 mg tablet,delayed See Rx Instructions .Route 05/08/24 10/11/24 Rx release .COMPLEX #90 tabs amlodipine 10 mg tablet See Rx Instructions .Route 05/17/24 10/11/24 Rx .COMPLEX #90 tabs bisoprolol fumarate 5 mg tablet See Rx Instructions .Route 05/17/24 10/11/24 Rx .COMPLEX #90 tabs lisinopril 20 mg tablet See Rx Instructions .Route 05/17/24 10/11/24 Rx .COMPLEX #90 tabs omeprazole 40 mg capsule,delayed See Rx Instructions .Route 05/29/24 10/11/24 Rx release .COMPLEX #90 caps fluticasone propionate 50 See Rx Instructions .Route 08/27/24 10/11/24 Rx mcg/actuation nasal .COMPLEX #16 grams spray,suspension albuterol sulfate 90 mcg/actuation See Rx Instructions .Route 09/19/24 10/11/24 Rx aerosol inhaler .COMPLEX #8.5 grams cetirizine 10 mg tablet See Rx Instructions .Route 09/19/24 10/11/24 Rx .COMPLEX #90 tabs clonazepam 0.5 mg tablet 0.5 mg PO BID Anxiety #60 tabs 09/19/24 10/11/24 Rx ketotifen fumarate 0.025 % (0.035 1 drp ophthalmic (eye) Q12H #5 mL 09/19/24 10/11/24 Rx %) eye drops (Allergy Eye (ketotifen)) montelukast 10 mg tablet See Rx Instructions .Route 09/19/24 10/11/24 Rx .COMPLEX #90 tabs cyclobenzaprine 10 mg tablet See Rx Instructions .Route 09/20/24 10/11/24 Rx .COMPLEX #90 tabs hydrocodone 5 mg-acetaminophen 325 1 tab PO QIDP PRN Moderate Pain 10/03/24 10/11/24 Rx mg tablet (Scale Score 5-6) #120 tabs New Prescriptions to Start Prescriptions: Allergies Allergy/AdvReac Type Severity Reaction Status Date / Time No Known Drug Allergies Allergy Unknown NONE Verified 10/11/24 07:47 Exam Data for Last 24 hours Vital signs and Labs for Last 24 Hours: Temp Pulse Resp BP Pulse Ox O2 Del Method 97.7 F 78 16 130/80 96 Room Air 10/11/24 07:58 10/11/24 07:58 10/11/24 07:58 10/11/24 07:58 10/11/24 07:58 10/11/24 07:58 I & O for Last 24 hours: Intake & Output 10/08/24 10/09/24 10/10/24 10/11/24 23:59 23:59 23:59 23:59 Weight 214 lb *Routine HEENT Exam Head: Present normocephalic Eye: Present EOMI and PERRL ENT: Present mucous membranes moist *Routine Neck Exam Neck: Present supple *Routine Respiratory Exam Respiratory: Present CTA bilaterally *Routine Cardiovascular Exam Cardiovascular: Present RRR *Routine Abdominal Exam Abdominal: Present soft and normoactive bowel sounds; Absent tenderness *Routine Rectal Exam Rectal:: deferred *Routine Genitalia Exam Genitalia:: deferred *Routine Extremities Exam Extremities: Absent cyanosis, clubbing or edema *Routine Skin Exam Skin: Present warm; Absent rash *Routine Neurological Exam Neurological: Present alert and oriented X3 Assessment and Plan *Assessment and plan (1) Generalized abdominal pain: Status: Acute Category: Medical Code(s): R10.84 - Generalized abdominal pain (2) Constipation: Status: Acute Category: Medical Code(s): K59.00 - Constipation, unspecified (3) Diarrhea: Status: Acute Category: Medical Code(s): R19.7 - Diarrhea, unspecified (4) Epigastric pain: Status: Acute Category: Medical Code(s): R10.13 - Epigastric pain (5) Belching: Status: Acute Category: Medical Code(s): R14.2 - Eructation (6) Bloating: Status: Acute Category: Medical Code(s): R14.0 - Abdominal distension (gaseous) (7) Flatulence: Status: Acute Category: Medical Code(s): R14.3 - Flatulence (8) History of gastric ulcer: Status: Acute Category: Medical Code(s): Z87.11 - Personal history of peptic ulcer disease (9) Melena: Status: Acute Category: Medical Code(s): K92.1 - Melena Plan A/P: 1. GERD/epigastric abdominal pain/dyspepsia with history of ulcers and melena for upper endoscopy, bloating, bowel irregularity (diarrhea and constipation) and generalized abdominal pain for colonoscopy is the preprocedural diagnosis. The patient will be anesthetized/sedated using MAC sedation. The patient has been seen and examined. Cardiac and lung assessment prior to the examination is stable. Proceed with planned diagnostic EGD and colonoscopy.
[2024-10-11 09:14] VITALS: O2SAT 96
--- NOTE | 2024-10-11 09:24 | HMH.PROCNOTE ---
[facility] Procedure Note Date: 10/11/24 Time: 09:33 Procedure Note:: Upper Endoscopy Procedure Report: Esophagogastroduodenoscopy with cold biopsies Endoscopost: Lonny Cruz II, MD Referring Physician: RENATO Hein Date of Procedure: October 11, 2024 Equipment: Olympus GIF 190 standard upper endoscope Sedation: MAC sedation Indications: Mrs. Salvador is a 53-year-old female who reports epigastric abdominal pain, bloating, early satiety and occasional nausea. She is on omeprazole. She does have a prior history of bleeding ulcers. She was diagnosed despite the fact that she has never had an upper endoscopy. The patient had been on meloxicam from the orthopedist in [place]. She started having black stools and the meloxicam was stopped. She continues to have the pain. She has been using Pepto-Bismol. The patient reports no dysphagia. The patient reports no hematochezia or bright red blood per rectum. She has had no weight loss. This is her first EGD for diagnostic purposes. Procedure: Prior to the procedure, a history and physical exam was performed, and patient's medications and allergies were reviewed. The risks, benefits and alternatives of the sedation and procedure were discussed with the patient. All questions were answered and informed consent was obtained. The patient was brought to the procedure room. Patient identification and proposed procedure were verified by the physician and the nurse. The patient was placed in a left lateral decubitus position and the scope was passed under direct vision. Throughout the procedure, the patient's blood pressure, pulse, and oxygen saturations were monitored continuously. The upper GI endoscopy was accomplished without difficulty. The patient tolerated the procedure well. Findings: The scope was passed directly into the upper esophagus and advanced to the fourth portion of duodenum and proximal jejunum. Cold biopsies were taken from the proximal jejunum x 4 for disaccharidase assay. The proximal jejunum, post bulbar duodenum, ampulla and duodenal bulb were normal with normal mucosa and conniventes. The scope was withdrawn through a normal duodenal bulb and pylorus into the stomach. There was bile reflux with mild antral reactive gastropathy and mild to moderate proximal chronic gastritis. Biopsies were taken from the lesser curvature to rule out H. pylori. Upon retroflexion there was no hiatal hernia. The scope was then withdrawn into the esophagus. There was no evidence of reflux esophagitis or Kennedy's. The remainder of the esophageal mucosa was normal. Impression: 1. Bile reflux with mild antral linear reactive gastropathy and mild to moderate proximal (type A) chronic gastritis Plan: I will follow-up the biopsies to rule out H. pylori and follow-up the disaccharidase assay. I will proceed with diagnostic colonoscopy. I do feel that her black stools are related to the Pepto-Bismol. The patient does have functional dyspepsia and I do feel that most of her symptoms of dyspepsia are related to and driven by lower intestinal gas pressure gradients/high gas pressure buildup resulting in backflow of bile and peptic fluid from the duodenum into the stomach (duodenal reflux). This gas production (carbon dioxide, hydrogen, methane, etc.) from the lower intestinal tract is the byproduct of colonic bacterial fermentation. This colonic fermentation occurs when there is more carbohydrate (dietary starches, sugars and high residue plant fiber) substrate that does not get digested (in the middle or small intestine) or occurs when there is colonic fecal buildup and colonic bacterial overgrowth. This indeed leads to bloating and the gas pressure buildup with gas pressure gradients that do drive backflow and dyspepsia.
--- NOTE | 2024-10-11 09:37 | HMH.PROCNOTE ---
[facility] Procedure Note Date: 10/11/24 Time: 09:52 Procedure Note:: Colonoscopy Procedure Report: Colonoscopy with cold snare polypectomy and cold biopsies Endoscopist: Lonny Cruz II, MD Referring physician: RENATO Hein Date of Procedure: October 11, 2024 Equipment: Olympus 190 variable stiffness pediatric colonoscope Sedation: MAC sedation Indication: Mrs. Salvador is a 53-year-old female who is here for diagnostic colonoscopy. The patient has had epigastric abdominal pain and generalized abdominal discomfort with bloating and fullness. She also has had bowel irregularity and does get diarrhea the majority of the time. She did have a normal (negative) Cologuard a couple of years ago. She reports no rectal bleeding or weight loss. She does not know her family history since she is adopted. This is her first colonoscopy. Procedure: Prior to the procedure, a history and physical exam was performed, and patient's medications and allergies were reviewed. The risks, benefits and alternatives of the sedation and procedure were discussed with the patient. All questions were answered and informed consent was obtained. The patient was brought to the procedure room. Patient identification and proposed procedure were verified by the physician and the nurse. The patient was placed in a left lateral decubitus position and the scope was passed under direct vision. Throughout the procedure, the patient's blood pressure, pulse, and oxygen saturations were monitored continuously. The colonoscopy was accomplished without difficulty. The patient tolerated the procedure well. Findings: On digital rectal examination there was normal rectal tone. There were no external hemorrhoids. The colonoscope was introduced through the anal canal to the rectum and advanced to the cecum. The ileocecal valve and appendiceal orifice were identified. The scope was advanced a short distance into the ileum which appeared grossly normal. The scope was then withdrawn into the colon. The cecum, ascending, transverse and descending colon were normal with normal mucosa. Random cold biopsies were taken from the right colon to rule out microscopic colitis. There were 2 diminutive polyps (descending x 1 (4 mm) and rectal x 1 (3 mm)). These were both removed via cold snare polypectomy. There were very mildly scattered diverticuli within the sigmoid colon (LEFT colon). The rectum itself was normal. Upon retroflexion within the rectum there were grade 1 internal hemorrhoids. The preparation was excellent throughout with [place] Preparation Score of 9. The cecal time was 12 minutes. Impression: 1. Diminutive colonic polyps x 2 2. Mild sigmoid diverticulosis 3. Grade 1 internal hemorrhoids Plan: I will follow-up the random biopsies as well as the polyps. I would recommend bulking FiberCon 2 tablets by mouth every morning. If the random colon biopsies are normal, I would consider initiation of Viberzi for IBS?D. We will also discuss treatment options of her dyspepsia. I will follow-up the polyp histology and recommend repeat surveillance colonoscopy again in 7 to 10 years based upon the pathology.
[2024-10-11 09:55] VITALS: BP 112/63; PULSE 86; RESP 16; TEMP 36.5; O2SAT 93
[2024-10-11 10:05] VITALS: BP 117/82; PULSE 80; RESP 16; O2SAT 96
[2024-10-11 10:15] VITALS: BP 132/85; PULSE 85; RESP 16; O2SAT 96
[2024-10-11 10:25] VITALS: BP 145/74; PULSE 83; RESP 16; O2SAT 97
[2024-10-17 17:21] LABS: Disclaimer Notes (.); Interpretation Notes (.); Lactase 59.16 (>/= 14.0); Maltase 257.33 (>/= 110.0); Palatinase 17.37 (>/= 8.5); Reference Notes (.); Sucrase 67.61 (>/= 25.0)
== END 2024-10-11 10:32 | disposition home or self-care (01) ==
PROVIDERS: PCP Nurse Practitioner Family; Visit Provider Internal Medicine Gastroenterology
PROC: 0DJ08ZZ Inspection of Upper Intestinal Tract, Via Natural or Artificial Opening Endoscopic (ICD-10-PCS; CPT 45378; principal; 2024-10-11 09:00)
DX: R10.13 Epigastric pain (principal); R14.0 Abdominal distension (gaseous); R68.81 Early satiety; R11.0 Nausea; Z87.11 Personal history of peptic ulcer disease; K92.1 Melena; K31.9 Disease of stomach and duodenum, unspecified; K29.70 Gastritis, unspecified, without bleeding; D12.4 Benign neoplasm of descending colon; K63.5 Polyp of colon; K57.30 Diverticulosis of large intestine without perforation or abscess without bleeding; K64.0 First degree hemorrhoids
CPT/HCPCS: 43239; 45380; 45385; 82657; J7120